=== PATIENT | female | born 1955 | race Caucasian/White ===

== ENCOUNTER 2022-05-12 19:50 | Inpatient (IN) | payer OTHER, SELFPAY ==
--- NOTE | 2022-05-12 | ECG_ITS ---
Test Reason : ABDOMINAL PAIN Blood Pressure : / mmHG Vent. Rate : 117 BPM Atrial Rate : 117 BPM P-R Int : 150 ms QRS Dur : 084 ms QT Int : 346 ms P-R-T Axes : 046 054 081 degrees QTc Int : 482 ms Sinus tachycardia Possible Left atrial enlargement Borderline ECG When compared with ECG of 07-APR-2019 12:59, T wave inversion now evident in Anterior leads Referred By: Generic ED Physician Electronically Signed By:Amilcar Mcneil
--- NOTE | ~2022-05-12 | CT_ITS ---
EXAMINATION: CT ABDOMEN AND PELVIS WITHOUT CONTRAST CLINICAL INFORMATION: Lower abdominal pain. COMPARISON: CT abdomen pelvis 12/27/2007 TECHNIQUE: Multidetector volumetric imaging was performed from the superior aspect of the liver through the pubic symphysis. Sagittal and coronal reformatted images were obtained on the technologist's workstation. This CT examination was performed using dose optimization techniques as appropriate, variously including the following: *Automated exposure control *Adjustment of mA and/or kV according to patient size (this includes techniques or standardized protocols for targeted exams where dose is matched to indication/reason for exam; i.e. extremities or head) *Use of iterative reconstruction technique DLP: 537 mGy-cm FINDINGS: LUNG BASES: Status post median sternotomy. LIVER, GALLBLADDER, AND BILIARY TREE: The liver is normal in size, shape, and attenuation. No focal hepatic lesion or biliary ductal dilatation is present. Small gallstone within the gallbladder neck. No edema around the gallbladder bile duct dilatation. PANCREAS: Edema around the pancreas consistent with a moderate pancreatitis. There is fluid along the anterior left pararenal fascia extending along left paracolic gutter. The edematous changes extending into the mid abdominal mesentery. No pancreatic duct dilatation. No evidence of pseudocyst. SPLEEN: Unremarkable. ADRENAL GLANDS: Unremarkable. KIDNEYS AND URETERS: The kidneys are normal in size, shape, and attenuation. No hydronephrosis, hydroureter, or calculi seen. No perinephric stranding. 5 cm cyst upper pole of the right kidney. No follow-up imaging is recommended for simple renal cyst. BLADDER: Unremarkable. GASTROINTESTINAL TRACT: There are a few scattered diverticula of the sigmoid colon. There is no diverticulitis. There is no bowel wall thickening /edema. There is no bowel obstruction. There is a moderate to large volume of stool in the colon. The appendix is normal . The small bowel loops are unremarkable. The stomach is normal. There is no hiatal hernia. ABDOMINAL WALL: Small fat-containing umbilical hernia. LYMPH NODES: Normal. VASCULAR: Atherosclerotic vascular calcifications throughout the abdomen and pelvis. There is no aneurysm. PELVIC VISCERA: Unremarkable. OSSEOUS STRUCTURES: There is marked multilevel degenerative spondylosis of the lower thoracic spine. CT/CT abdomen pelvis wo IV con IMPRESSION: 1. Moderate pancreatitis. 2. Cholelithiasis. Fleischner guidelines were followed.
--- NOTE | ~2022-05-12 | XR_ITS ---
EXAMINATION: XR CHEST CLINICAL INFORMATION: Sepsis COMPARISON: 04/07/2019 TECHNIQUE: Frontal view of the chest was obtained. FINDINGS: The heart and pulmonary vessels appear normal. Again noted are changes of median sternotomy and CABG. There is new patchy consolidation in the left lower lobe/retrocardiac region with some mild obscuration of the hemidiaphragm. The right lung is clear. No pleural effusions. XR/XR chest 1V IMPRESSION: New left lower lobe pneumonia.
--- NOTE | ~2022-05-12 | MR_ITS ---
EXAMINATION: MRI ABDOMEN WITHOUT CONTRAST (MRCP) CLINICAL INFORMATION: Pancreatitis COMPARISON: Ultrasound 05/12/2022. CT abdomen pelvis 05/12/2022 TECHNIQUE: Multiplanar MR images through the abdomen were obtained on a 1.5 Melissa MR system without IV contrast. Heavily T2-weighted MRCP sequences of the biliary tree were obtained in multiple planes. FINDINGS: LUNG BASES: Lung bases are clear. LIVER: The liver is normal in size and signal. No hepatic steatosis is seen. No focal cystic or solid mass is present. GALLBLADDER: There is a low signal structure in the neck of the gallbladder for example series 5 image 10/20 which could represent a tiny gallstone is seen on other imaging. No gallbladder wall thickening or pericholecystic fluid however. BILIARY TREE: No intrahepatic biliary ductal dilation. The common bile duct is normal in caliber, 0.6 cm in diameter. No intraluminal filling defects seen. PANCREAS: There is a edema of the neck and body of the pancreas with ill-defined peripancreatic fluid and fat stranding. Lack of IV contrast precludes evaluation of necrosis. No discrete pancreatic mass seen. Fluid and fat stranding extends into the left anterior and posterior pararenal spaces. SPLEEN: Normal. Normal size. No focal lesion. ADRENAL GLANDS: Normal. No adrenal mass. KIDNEYS AND URETERS: 5.2 cm simple cyst of the upper pole of the right kidney for which no imaging follow-up is recommended. No hydronephrosis. LYMPHOVASCULAR STRUCTURES: Normal caliber aorta. IVC patent. No pathologically enlarged abdominal or retroperitoneal lymphadenopathy by size criteria OSSEOUS STRUCTURES: No acute or suspicious osseous abnormalities. Trace ascites seen adjacent the liver and along left paracolic gutter. The visualized bowel is nondilated. MR/MR MRCP IMPRESSION: There is edema of the mid pancreas as well as extensive peripancreatic and retroperitoneal fluid and fat stranding consistent with acute interstitial pancreatitis. Lack of IV contrast limits evaluation to assess for pancreatic necrosis. No biliary ductal dilatation. There are gallstones but no filling defects in the common bile duct to suggest choledocholithiasis.
--- NOTE | ~2022-05-12 | US_ITS ---
EXAMINATION: US ABDOMEN LIMITED CLINICAL INFORMATION: Gallstones. Pancreatitis. COMPARISON: CT from today TECHNIQUE: Real-time imaging of the right upper quadrant abdominal viscera. FINDINGS: PANCREAS: Not seen due to bowel gas. LIVER: Normal. The liver is normal in size. The liver contour is normal. Parenchymal echogenicity is normal. No focal hepatic lesion. There is no intrahepatic biliary duct dilatation seen. GALLBLADDER: A few stones are seen layering in the gallbladder lumen. The gallbladder is physiologically distended without evidence of sludge, polyps, wall thickening or pericholecystic fluid. COMMON BILE DUCT: Normal in caliber measuring 0.3 cm in diameter. RIGHT KIDNEY: Upper pole 4.6 cm simple cyst. No specific follow-up recommended. No hydronephrosis. No renal calculi or solid parenchymal lesions. The kidney measures 10.3 cm in maximum dimension. FREE FLUID: None. US/US abdomen limited IMPRESSION: Cholelithiasis. No inflammatory changes of the gallbladder. Pancreas not evaluated due to bowel gas.
--- NOTE | ~2022-05-12 | US_ITS ---
EXAMINATION: US VENOUS WITH DOPPLER UPPER EXTREMITY, LEFT CLINICAL INFORMATION: Swelling COMPARISON: None TECHNIQUE: Ultrasound of the upper extremity is performed using compression sonography and color and pulse Doppler flow with assessment of augmentation of flow. There is also imaging and Doppler assessment of the jugular and subclavian veins. Spectral analysis with color-flow imaging is performed. FINDINGS: Respiratory variation, normal compression, and augmented flow are noted throughout the upper extremity including the axillary, brachial, cubital, and radial and ulnar veins. There is normal flow in the internal jugular and subclavian veins. There is no visible deep or superficial thrombophlebitis. The cephalic vein is not visualized. If the patient's symptoms progress, a followup ultrasound in 5 -7 days might be of value to exclude proximal propagation from a nonvisualized distal arm vein. US/US venous duplex UE LT IMPRESSION: No DVT demonstrated in the left upper extremity.
[2022-05-12 19:59] VITALS: BP 174/88; BP 198/89; PULSE 117; PULSE 118; RESP 24; TEMP 36.4; O2SAT 100; O2SAT 99; BMI 33.3
--- NOTE | 2022-05-12 20:10 | ED_ITS ---
HPI - Abdominal Pain General Chief Complaint: Abdominal Pain Stated Complaint: Low abd pain per EMS Time Seen by Provider: 05/12/22 20:08 Source: patient Mode of arrival: ambulatory Limitations: no limitations History of Present Illness HPI narrative: Patient with history of carotid artery surgery with blood clots in right subclavian vein and r arm 2019 supposed to be on Eliquis not taking it for last 3 months comes here for acute abdominal pain started at 03:00 last night associated with nausea and vomiting pain radiating in the left lower quadrant to the right side and the back patient has similar pain 1 week ago and 2 months ago but did go to any hospital resolved off its own. Had normal bowel movement today no fever no chills no abdominal distention Related Data Allergies Allergy/AdvReac Type Severity Reaction Status Date / Time Iodinated Contrast Media Allergy Unknown UNKNOWN Verified 05/12/22 20:38 [CONTRAST, IV] Review of Systems Review of Systems Yes all other systems are reviewed and are negative PMFSH Past Medical History Medical History Diabetes Hyperlipidemia Hypertension Surgical History S/P triple vessel bypass (~2001) Social History Social History Alcohol intake: never Smoked in Last 30 Days: No Use of substances other than those prescribed or required for medical reasons: No Advance Directives: No Advance Directives Information Provided: Yes Physical Exam ED Vital Signs: Vital Signs - 24 hr 05/12/22 19:59 05/12/22 23:49 Temperature 97.6 F 97.8 F Pulse Rate 117 H 118 H Respiratory Rate 24 H 20 Blood Pressure 198/89 H 195/88 H Pulse Oximetry 100 100 Oxygen Delivery Method Room Air Room Air BMI result Body Mass Index 33.3 Appearance: Alert. Oriented X3. Moderate distress Eyes: PERRLA, No Nystagmus ENT: Pharynx normal. Oral Mucosa moist Neck: Normal inspection. Neck supple. CVS: Normal heart rate and rhythm. Pulses normal. Respiratory: No respiratory distress. Equal air entry bilateral, no wheezing/rales/rhonchi Abdomen: Soft , diffuse tenderness mid abdomen and left lower quadrant guarding ++Bowel sounds sluggish, no mass palpable, no CVA tenderness Skin: Skin warm and dry. Normal skin color. Normal skin turgor. Extremities: No lower extremity edema. No calf tenderness Neuro: Oriented X 3. No motor deficit. Medical Decision Making Medical Decision Making [facility] Narrative: 2329: Patient has acute pancreatitis with gallstone likely the etiology with leukocytosis tachycardia lactic acidosis meeting the criteria for sepsis. Patient received IV fluids 30 cc/kilogram and IV antibiotics focused exam for sepsis was done at 2329 Patient's chest x-ray showed possible left retrocardiac infiltrate but CT scan of the abdomen did not show any infiltrate patient denies any cough no respiratory complaints. Patient received IV Zosyn and IV fluids admit to hospitalist service case discussed with Dr. Tidwell [facility] will follow the patient ultrasound negative for cholecystitis shows cholelithiasis only Differential Diagnosis Differential Diagnoses: The differential diagnosis associated with the presentation includes Cholecystitis/diverticulitis/bowel perforation/pancreatitis/gallstones/kidney stone/appendicitis Consult Healthcare Provider Management of the patient was discussed with: Hospitalist Lab Data [facility] Lab Attestation statement: I reviewed the patient's lab results. 05/12/22 20:21 05/12/22 21:07 Labs: Lab Results 05/12/22 05/12/22 05/12/22 Range/Units 20:21 20:21 20:24 WBC 20.0 H (4.8-10.8) X10*3/uL RBC 6.00 H (4.20-5.50) X10*6/uL Hgb 13.0 (12.0-16.0) g/dl Hct 42.5 (37.0-47.0) % MCV 70.8 L (80.0-98.0) fL MCH 21.7 L (27.0-33.0) pg MCHC 30.6 L (31.0-35.0) g/dl RDW 20.5 H (11.0-16.0) % Plt Count 365 (160-400) X10*3/uL MPV 10.8 (9.4-12.3) fL Immature Gran % (Auto) 0.6 H (0.0-0.4) % Neut % (Auto) 91.3 H (45-73) % Lymph % (Auto) 3.4 L (20-40) % [place] % (Auto) 4.3 (2-11) % Eos % (Auto) 0.0 (0-4) % Baso % (Auto) 0.4 (0-2) % Lymph # (Auto) 0.7 L (1.2-4.9) X10*3/uL [place] # (Auto) 0.9 (0.1-1.2) X10*3/uL Eos # (Auto) 0.0 (0.0-0.4) X10*3/uL Baso # (Auto) 0.1 (0.0-0.2) X10*3/uL Abs Immat Gran (auto) 0.11 H (0.00-0.03) X10*3/uL Absolute Neuts (auto) 18.3 H (2.0-8.3) x10*3/uL Absolute Nucleated RBC 0.000 (0.0-0.012) X10*3/uL Nucleated RBC % (auto) 0.0 (0.0-0.2) /100WBC PT 10.8 (10.0-13.1) SEC INR 0.9 (0.9-1.1) Sodium (135-145) mmol/L Potassium (3.3-5.1) mmol/L Chloride (96-108) mmol/L Carbon Dioxide (22-29) mmol/L Anion Gap (12-20) BUN (9-16) mg/dL Creatinine (0.5-1.4) mg/dL Estim Creat Clear Calc Estimated GFR Random Glucose (60-115) mg/dL Lactic Acid (0.5-2.0) mmol/L Lactic Acid F/U @ 2Hr (0.5-2.0) mmol/L Calcium (8.4-10.2) mg/dL Total Bilirubin (0.0-1.0) mg/dL AST (5-31) U/L ALT (0-31) U/L Alkaline Phosphatase (39-117) U/L Troponin I High Sens < 3.5 (<3.5-17.0) ng/L Total Protein (6.5-8.0) g/dL Albumin (3.5-5.0) g/dL Triglycerides mg/dL Cholesterol mg/dL LDL Cholesterol, Calc mg/dl HDL Cholesterol mg/dL Lipase (8-78) U/L COVID-19 (ADAIR) (Negative) COVID-19 Clin Com 05/12/22 05/12/22 05/12/22 Range/Units 20:25 21:07 22:47 WBC (4.8-10.8) X10*3/uL RBC (4.20-5.50) X10*6/uL Hgb (12.0-16.0) g/dl Hct (37.0-47.0) % MCV (80.0-98.0) fL MCH (27.0-33.0) pg MCHC (31.0-35.0) g/dl RDW (11.0-16.0) % Plt Count (160-400) X10*3/uL MPV (9.4-12.3) fL Immature Gran % (Auto) (0.0-0.4) % Neut % (Auto) (45-73) % Lymph % (Auto) (20-40) % [place] % (Auto) (2-11) % Eos % (Auto) (0-4) % Baso % (Auto) (0-2) % Lymph # (Auto) (1.2-4.9) X10*3/uL [place] # (Auto) (0.1-1.2) X10*3/uL Eos # (Auto) (0.0-0.4) X10*3/uL Baso # (Auto) (0.0-0.2) X10*3/uL Abs Immat Gran (auto) (0.00-0.03) X10*3/uL Absolute Neuts (auto) (2.0-8.3) x10*3/uL Absolute Nucleated RBC (0.0-0.012) X10*3/uL Nucleated RBC % (auto) (0.0-0.2) /100WBC PT (10.0-13.1) SEC INR (0.9-1.1) Sodium 141 (135-145) mmol/L Potassium 4.3 (3.3-5.1) mmol/L Chloride 105 (96-108) mmol/L Carbon Dioxide 17 L (22-29) mmol/L Anion Gap 23 H (12-20) BUN 33 H (9-16) mg/dL Creatinine 0.92 (0.5-1.4) mg/dL Estim Creat Clear Calc 48.5 Estimated GFR > 60 Random Glucose 251 H (60-115) mg/dL Lactic Acid 7.2 H* (0.5-2.0) mmol/L Lactic Acid F/U @ 2Hr 2.6 H* (0.5-2.0) mmol/L Calcium 9.3 (8.4-10.2) mg/dL Total Bilirubin 0.7 (0.0-1.0) mg/dL AST 117 H (5-31) U/L ALT 104 H (0-31) U/L Alkaline Phosphatase 251 H (39-117) U/L Troponin I High Sens (<3.5-17.0) ng/L Total Protein 6.1 L (6.5-8.0) g/dL Albumin 3.7 (3.5-5.0) g/dL Triglycerides 74 mg/dL Cholesterol 160 mg/dL LDL Cholesterol, Calc 95 mg/dl HDL Cholesterol 51 mg/dL Lipase > 3000 H (8-78) U/L COVID-19 (ADAIR) (Negative) COVID-19 Clin Com 05/12/22 Range/Units 23:45 WBC (4.8-10.8) X10*3/uL RBC (4.20-5.50) X10*6/uL Hgb (12.0-16.0) g/dl Hct (37.0-47.0) % MCV (80.0-98.0) fL MCH (27.0-33.0) pg MCHC (31.0-35.0) g/dl RDW (11.0-16.0) % Plt Count (160-400) X10*3/uL MPV (9.4-12.3) fL Immature Gran % (Auto) (0.0-0.4) % Neut % (Auto) (45-73) % Lymph % (Auto) (20-40) % [place] % (Auto) (2-11) % Eos % (Auto) (0-4) % Baso % (Auto) (0-2) % Lymph # (Auto) (1.2-4.9) X10*3/uL [place] # (Auto) (0.1-1.2) X10*3/uL Eos # (Auto) (0.0-0.4) X10*3/uL Baso # (Auto) (0.0-0.2) X10*3/uL Abs Immat Gran (auto) (0.00-0.03) X10*3/uL Absolute Neuts (auto) (2.0-8.3) x10*3/uL Absolute Nucleated RBC (0.0-0.012) X10*3/uL Nucleated RBC % (auto) (0.0-0.2) /100WBC PT (10.0-13.1) SEC INR (0.9-1.1) Sodium (135-145) mmol/L Potassium (3.3-5.1) mmol/L Chloride (96-108) mmol/L Carbon Dioxide (22-29) mmol/L Anion Gap (12-20) BUN (9-16) mg/dL Creatinine (0.5-1.4) mg/dL Estim Creat Clear Calc Estimated GFR Random Glucose (60-115) mg/dL Lactic Acid (0.5-2.0) mmol/L Lactic Acid F/U @ 2Hr (0.5-2.0) mmol/L Calcium (8.4-10.2) mg/dL Total Bilirubin (0.0-1.0) mg/dL AST (5-31) U/L ALT (0-31) U/L Alkaline Phosphatase (39-117) U/L Troponin I High Sens (<3.5-17.0) ng/L Total Protein (6.5-8.0) g/dL Albumin (3.5-5.0) g/dL Triglycerides mg/dL Cholesterol mg/dL LDL Cholesterol, Calc mg/dl HDL Cholesterol mg/dL Lipase (8-78) U/L COVID-19 (ADAIR) Negative (Negative) COVID-19 Clin Com See Note Medications Administered Generic Name Dose Route Start Last Admin Trade Name Freq PRN Reason Stop Dose Admin Enoxaparin Sodium 40 mg 05/13/22 00:30 05/13/22 00:27 Enoxaparin Sodium 40 Mg/0.4 Ml Syringe SUBCUT 40 mg BEDTIME MAXIM Administration Lactated Ringer's 1,000 mls @ 250 mls/hr 05/12/22 23:45 05/13/22 00:33 Lr IVCONT 250 mls/hr .Q4H MAXIM Administration Metronidazole 500 mg in 100 mls @ 100 mls/hr 05/13/22 00:30 05/13/22 00:33 Flagyl IV 100 mls/hr Q8H MAXIM Administration Discontinued Medications Generic Name Dose Route Start Last Admin Trade Name Celia PRN Reason Stop Dose Admin Famotidine 20 mg 05/12/22 23:13 05/12/22 23:33 Famotidine/Pf 20 Mg/2 Ml Vial IVPUSH 05/12/22 23:14 20 mg ONCE ONE Administration Hydralazine HCl 5 mg 05/13/22 00:05 05/13/22 00:27 Hydralazine Hcl 20 Mg/Ml Vial IVPUSH 05/13/22 00:06 5 mg ONCE ONE Administration Protocol Sodium Chloride 1,000 mls @ 999 mls/hr 05/12/22 20:10 05/12/22 20:28 Ns IV 05/12/22 21:10 999 mls/hr .Q1H1M ONE Administration Sodium Chloride 1,000 mls @ 999 mls/hr 05/12/22 21:03 05/12/22 21:59 Ns IV 05/12/22 22:03 999 mls/hr .Q1H1M ONE Administration Piperacillin Sod/Tazobactam 50 mls @ 100 mls/hr 05/12/22 21:03 05/12/22 21:59 Sod 3.375 gm/ Sodium Chloride IV 05/12/22 21:32 Infused ONCE ONE Infusion Sodium Chloride 1,000 mls @ 999 mls/hr 05/12/22 23:05 05/12/22 23:33 Ns IV 05/13/22 00:05 999 mls/hr .Q1H1M ONE Administration Morphine Sulfate 4 mg 05/12/22 20:19 05/12/22 20:28 Morphine Sulfate 4 Mg/Ml Cartridge IVPUSH 05/12/22 20:20 4 mg ONCE ONE Administration Protocol Morphine Sulfate 4 mg 05/12/22 23:04 05/12/22 23:33 Morphine Sulfate 4 Mg/Ml Cartridge IVPUSH 05/12/22 23:05 4 mg ONCE ONE Administration Protocol Ondansetron HCl 4 mg 05/12/22 20:19 05/12/22 20:28 Ondansetron Hcl 4 Mg/2 Ml Vial IVPUSH 05/12/22 20:20 4 mg ONCE ONE Administration Discharge Plan Discharge Clinical Impression: Acute gallstone pancreatitis, Sepsis, Acidosis, lactic Patient Disposition: Admitted As Inpatient
[2022-05-12 20:24] LABS: MANUAL DIFF FLAG NO
[2022-05-12 20:28] LABS: Basophils Absolute Auto 0.1 X10*3/uL (0.0-0.2); Basophils Percent Auto 0.4 % (0-2); Hematocrit 42.5 % (37.0-47.0); Imm Gran Abs Auto 0.11 X10*3/uL (0.00-0.03); Imm Gran Pct Auto 0.6 % (0.0-0.4); Lymphocytes Absolute Auto 0.7 X10*3/uL (1.2-4.9); Lymphocytes Percent Auto 3.4 % (20-40); Mean Corpuscular HGB Conc 30.6 g/dl (31.0-35.0); Mean Corpuscular Hemoglobin 21.7 pg (27.0-33.0); Mean Corpuscular Volume 70.8 fL (80.0-98.0); Mean Platelet Volume 10.8 fL (9.4-12.3); Monocytes Absolute Auto 0.9 X10*3/uL (0.1-1.2); Monocytes Percent Auto 4.3 % (2-11); Neutrophils Absolute Auto 18.3 x10*3/uL (2.0-8.3); Neutrophils Percent Auto 91.3 % (45-73); Platelet Count 365 X10*3/uL (160-400); Red Cell Distribution Width 20.5 % (11.0-16.0); SCAN SMEAR FLAG 1
[2022-05-12] MEDS: ondansetron HCL 4 MG/2 ML VIAL IVPUSH (20:28)
[2022-05-12] MEDS: 0.9 % Sodium Chloride 1,000 ML 999 ML IV ×3 (20:28→23:33)
[2022-05-12] MEDS: Morphine Sulfate 4 MG/ML CARTRIDGE IVPUSH ×2 (20:28→23:33)
--- NOTE | 2022-05-12 20:35 | PC.NURSE ---
pt arrived to ed a&ox3, sinus tach on monitor, hypertensive, other vss, reporting 10/10 abd pain radiating to left flank. labs drawn, EKG obtained, 22G IV placed left hand, medicated per provider order. pending CT.
[2022-05-12 20:39] LABS: INTERNATIONAL NORM RATIO 0.9 (0.9-1.1); Prothrombin Time 10.8 SEC (10.0-13.1)
[2022-05-12 20:46] LABS: Troponin-I High Sensitivity < 3.5 ng/L (<3.5-17.0)
[2022-05-12 21:04] LABS: Lactic Acid 7.2 mmol/L (0.5-2.0)
[2022-05-12] MEDS: Piperacillin Sodium/Tazobactam 3.375 GM in 0.9 % Sodium Chloride 50 ML IV (21:18)
[2022-05-12 21:34] LABS: Alanine Aminotransferase 104 U/L (0-31); Albumin Level 3.7 g/dL (3.5-5.0); Alkaline Phosphatase 251 U/L (39-117); Anion Gap 23 (12-20); Aspartate Amino Transferase 117 U/L (5-31); Bilirubin Total 0.7 mg/dL (0.0-1.0); Blood Urea Nitrogen 33 mg/dL (9-16); Calcium 9.3 mg/dL (8.4-10.2); Carbon Dioxide 17 mmol/L (22-29); Chloride 105 mmol/L (96-108); Creatinine Clr Calc Pharmacy 48.5; Estimated Glomerular Filt Rate > 60; Glucose Random 251 mg/dL (60-115); Potassium 4.3 mmol/L (3.3-5.1); Sodium 141 mmol/L (135-145); Total Protein 6.1 g/dL (6.5-8.0)
[2022-05-12 21:50] LABS: Lipase > 3000 U/L (8-78)
[2022-05-12 22:30] LABS: Reflex Lactate? Lactic Acid Added
[2022-05-12 23:12] LABS: ~Lactic Acid-LAB USE ONLY 2.6 mmol/L (0.5-2.0)
[2022-05-12 23:26] LABS: Cholesterol 160 mg/dL; HDL Cholesterol 51 mg/dL; LDL Cholesterol Calculated 95 mg/dl; Triglycerides 74 mg/dL
[2022-05-12] MEDS: Famotidine/PF 20 MG/2 ML VIAL IVPUSH (23:33)
[2022-05-12 23:49] VITALS: BP 195/88; PULSE 118; RESP 20; TEMP 36.6; O2SAT 100
[2022-05-13] VITALS (8 sets, daily range): BP systolic 137–195; BP diastolic 68–88; PULSE 98–131; RESP 15–28; TEMP 36.2–37.2; O2SAT 94–99; BMI 33.3
[2022-05-13 00:04] LABS: COVID-19 Test Negative (Negative); IDNOW Serial# 6674DD1D
--- NOTE | 2022-05-13 00:05 | P.HPHOSP_ITS ---
History of Present Illness Date of Service: 05/13/22 Chief Complaint: abdominal pain 66-year-old female with past medical history of CAD status post CABG, diabetes, HLD, HTN presents to the hospital with complaints of severe abdominal pain. Patient reports the abdominal pain to be across the abdomen, radiating to the back, the patient woke up at 03:00 with this pain, patient reports the pain is 10/10/severe, constant, associated with nausea vomiting, decreased oral intake due to the nausea, reports no diarrhea constipation, reports similar episodes last month that resolved spontaneously within minutes. Denies any fever or chills, no chest pain, no shortness of breath, no cough, no urinary symptoms and no lower extremity edema. No numbness tingling or weakness. On arrival to the ED patient hemodynamically stable with a heart rate of 117, blood pressure 188/89, respiratory rate of 24 Labs are significant for WBC count of 22, BUN of 33, lactic acid initially of 7.2 that decrease 2.1, AST of 117, ALT of 104, alk-phos of 251, troponin negative, lipase of more than [address] shows moderate pancreatitis, cholelithiasis, patient underwent abdominal ultrasound that also showed cholelithiasis with no inflammatory change of the gallbladder, case was discussed with GI, patient will undergo MRCP in a.m.. Review of Systems Review of Systems: Yes all other systems are reviewed and are negative [facility] Medical History Diabetes Hyperlipidemia Hypertension Surgical History S/P triple vessel bypass (~2001) Social History Alcohol intake: never Smoked in Last 30 Days: No Use of substances other than those prescribed or required for medical reasons: No Advance Directives: No Advance Directives Information Provided: Yes Meds Allergies Allergy/AdvReac Type Severity Reaction Status Date / Time Iodinated Contrast Media Allergy Unknown UNKNOWN Verified 05/12/22 20:38 [CONTRAST, IV] Home Medications Medication Instructions Recorded Confirmed Last Taken Type aspirin 81 mg chewable tablet 1 tab DAILY 05/13/22 05/13/22 Unknown History atorvastatin 80 mg tablet 1 tab PO BEDTIME 05/13/22 05/13/22 Unknown History calcipotriene 0.005 % topical cream appl topical 05/13/22 Unknown History dulaglutide 3 mg/0.5 mL 3 mg subcut QWEEK 05/13/22 05/13/22 Unknown History subcutaneous pen injector (Trulicity) empagliflozin 25 mg tablet 1 tab PO QAM 05/13/22 05/13/22 Unknown History (Jardiance) enalapril maleate 10 mg tablet 1 tab PO DAILY 05/13/22 05/13/22 Unknown History hydroxyzine HCl 10 mg tablet 1 tab PO BEDTIME 05/13/22 05/13/22 Unknown History insulin lispro 100 unit/mL subcut 05/13/22 Unknown History subcutaneous pen (Humalog KwikPen (U-100) Insulin) metoprolol tartrate 50 mg tablet 1 tab PO BID 05/13/22 05/13/22 Unknown History omeprazole 20 mg capsule,delayed 1 cap PO DAILY 05/13/22 05/13/22 Unknown History release Physical Exam Vital Signs and Narrative: Vital Signs: Last Vital Signs Temp 97.8 F 05/12/22 23:49 Pulse 118 H 05/12/22 23:49 Resp 20 05/12/22 23:49 BP 195/88 H 05/12/22 23:49 Pulse Ox 100 05/12/22 23:49 O2 Del Method 05/12/22 23:49 BMI result Body Mass Index 33.3 Const: General: cooperative and no acute distress Orientation/consciousness: patient oriented x3 Eyes: General: appearance normal, both eyes and all related structures Resp: Effort & Inspection: able to speak in complete sentences Auscultation: clear to auscultation bilaterally Cardio: Rate: regular rate Rhythm: regular rhythm GI: Other: Severe abdominal tenderness in the epigastric region, rebound Skin: Other: diaphoretic General skin exam: no rashes or lesions noted Neuro: General: patient oriented x3 Cognition (Neuro): normal cognition Extrem: General: Yes normal to inspection and Yes no pedal edema Results Labs 05/12/22 20:21 05/12/22 21:07 Labs: Laboratory Results - last 24 hr 05/12/22 05/12/22 05/12/22 20:21 20:21 20:24 MCV 70.8 L MCH 21.7 L MCHC 30.6 L RDW 20.5 H Plt Count 365 MPV 10.8 Immature Gran % (Auto) 0.6 H Neut % (Auto) 91.3 H Lymph % (Auto) 3.4 L [place] % (Auto) 4.3 Eos % (Auto) 0.0 Baso % (Auto) 0.4 Lymph # (Auto) 0.7 L [place] # (Auto) 0.9 Eos # (Auto) 0.0 Baso # (Auto) 0.1 Abs Immat Gran (auto) 0.11 H Absolute Neuts (auto) 18.3 H Absolute Nucleated RBC 0.000 Nucleated RBC % (auto) 0.0 PT 10.8 INR 0.9 Anion Gap Estim Creat Clear Calc Estimated GFR Random Glucose Lactic Acid Lactic Acid F/U @ 2Hr Calcium Total Bilirubin AST ALT Alkaline Phosphatase Troponin I High Sens < 3.5 Total Protein Albumin Triglycerides Cholesterol LDL Cholesterol, Calc HDL Cholesterol Lipase COVID-19 (ADAIR) COVID-Carrier IQ 05/12/22 05/12/22 05/12/22 20:25 21:07 22:47 MCV MCH MCHC RDW Plt Count MPV Immature Gran % (Auto) Neut % (Auto) Lymph % (Auto) [place] % (Auto) Eos % (Auto) Baso % (Auto) Lymph # (Auto) [place] # (Auto) Eos # (Auto) Baso # (Auto) Abs Immat Gran (auto) Absolute Neuts (auto) Absolute Nucleated RBC Nucleated RBC % (auto) PT INR Anion Gap 23 H Estim Creat Clear Calc 48.5 Estimated GFR > 60 Random Glucose 251 H Lactic Acid 7.2 H* Lactic Acid F/U @ 2Hr 2.6 H* Calcium 9.3 Total Bilirubin 0.7 AST 117 H ALT 104 H Alkaline Phosphatase 251 H Troponin I High Sens Total Protein 6.1 L Albumin 3.7 Triglycerides 74 Cholesterol 160 LDL Cholesterol, Calc 95 HDL Cholesterol 51 Lipase > 3000 H COVID-19 (ADAIR) COVID-Carrier IQ 05/12/22 23:45 MCV MCH MCHC RDW Plt Count MPV Immature Gran % (Auto) Neut % (Auto) Lymph % (Auto) [place] % (Auto) Eos % (Auto) Baso % (Auto) Lymph # (Auto) [place] # (Auto) Eos # (Auto) Baso # (Auto) Abs Immat Gran (auto) Absolute Neuts (auto) Absolute Nucleated RBC Nucleated RBC % (auto) PT INR Anion Gap Estim Creat Clear Calc Estimated GFR Random Glucose Lactic Acid Lactic Acid F/U @ 2Hr Calcium Total Bilirubin AST ALT Alkaline Phosphatase Troponin I High Sens Total Protein Albumin Triglycerides Cholesterol LDL Cholesterol, Calc HDL Cholesterol Lipase COVID-19 (ADAIR) Negative COVID-19 Clin Com See Note Imaging Radiologist's Impressions: Impressions Abdomen/Pelvis CT 05/12/22 21:00 IMPRESSION: 1. Moderate pancreatitis. 2. Cholelithiasis. Fleischner guidelines were followed. Chest X-Ray 05/12/22 23:15 IMPRESSION: New left lower lobe pneumonia. Abdomen Ultrasound 05/12/22 23:34 IMPRESSION: Cholelithiasis. No inflammatory changes of the gallbladder. Pancreas not evaluated due to bowel gas. Assessment and Plan (1) Acute gallstone pancreatitis: Status: Acute (2) Sepsis: Status: Acute (3) Acidosis, lactic: Status: Acute Plan 66-year-old female with past medical history of diabetes presents to the hospital with complaints of abdominal pain found to have acute pancreatitis # acute pancreatitis - likely gallstone pancreatitis vs 2/2 medication induced in the setting of trulicity - has elevated LFTs, ultrasound of the abdomen shows gallstones with no acute cholecystitis - evidence of sepsis, will treat with IV antibiotics, make NPO, aggressive IV hydration - MRCP in a.m. - GI consulted - general surgery consulted # sepsis - possibly secondary to acute pancreatitis versus acute cholecystitis less likely - has tachycardia, leukocytosis, lactic acidosis - received IV fluids - improved her symptoms - IV antibiotics - follow cultures # lactic acidosis - likely secondary to acute pancreatitis - improved after IV fluids - continue IVF # diabetes - low-dose sinus scale insulin - hold po meds - consider discontinuing Trulicity on discharge given acute pancreatitis - diabetic diet once she is able to eat # hypertension - elevated - asymptomatic - unable to take p.o. - hydralazine p.r.n. DVT prophylaxis: Lovenox Time Spent With Patient Time: Total time managing care of this patient today ____ minutes. Quality Stroke Does the patient have a stroke diagnosis?: No VTE Prior VTE?: No VTE Risk Level:: Medical - moderate - high VTE Device Contraindication: Treatment Not Indicated VTE Drug Contraindication: N/A - Med Ordered
[2022-05-13] MEDS: hydrALAZINE HCl 20 MG/ML VIAL 5 MG IVPUSH (00:27)
[2022-05-13] MEDS: Enoxaparin Sodium 40 MG/0.4 ML SYRINGE SUBCUT ×2 (00:27→23:35)
[2022-05-13] MEDS: Lactated Ringers 1,000 ML 250 ML IVCONT ×5 (00:33→15:43)
[2022-05-13] MEDS: metroNIDAZOLE/NS 500 MG/100 ML PIGGYBACK 100 MG IV ×3 (00:33→17:04)
[2022-05-13 00:52] LABS: Reflex Lactate? 2 Y
[2022-05-13] MEDS: HYDROmorphone HCl 0.5 MG/0.5 ML SYRINGE IVPUSH ×2 (01:52→07:53)
[2022-05-13] MEDS: ondansetron HCL 4 MG/2 ML VIAL IVPUSH (01:52)
--- NOTE | 2022-05-13 02:00 | PC.NURSE ---
Pt. sleeping in bed. Pt. awakes to report pain at 10. Pt. also reporting nauseau. Pt. medicated with zofran and dilaudid per JUL. LR IVF running at 250mL/hour. Flagyl running at 100mL/hr. Pt. BP has dropped since adminstration of hydralazine. Pt. remains in sinus tachycardia at 116bpm.
[2022-05-13 02:09] LABS: ~Lactic Acid-LAB USE ONLY 2.1 mmol/L (0.5-2.0)
--- NOTE | 2022-05-13 02:10 | PC.NURSE ---
lab called with a critical lab value for pt. Lactic acid 2.1 notified.
--- NOTE | 2022-05-13 03:44 | MHC.EDTECH ---
pt is resting comfortable
[2022-05-13] MEDS: Piperacillin Sodium/Tazobactam 3.375 GM in 0.9 % Sodium Chloride 50 ML IV ×4 (04:05→23:37)
[2022-05-13] MEDS: Morphine Sulfate 4 MG/ML CARTRIDGE IVPUSH ×3 (04:09→23:52)
--- NOTE | 2022-05-13 04:20 | PC.NURSE ---
Pt. reports pain at 10/11. Pt. medicated with prn morphine per JUL. IVF LR running at 250mL/hr. Zosyn hung per JUL.
--- NOTE | 2022-05-13 06:04 | PC.NURSE ---
IVF LR finished infusing, hung new bag per MAR.
--- NOTE | 2022-05-13 07:08 | PM.CNGS ---
History of Present Illness Consult details Consult date: 05/13/22 Reason for consult: abdominal pain Narrative: The patient is a 66-year-old woman with a history of obesity, type 2 diabetes, coronary artery disease, status post CABG who presented with abdominal pain, lactic acidosis and is diagnosed with gallstone pancreatitis. She was admitted by the hospitalist service with GI consultation and I was asked to see the patient regarding timing of cholecystectomy. The patient reports 2 previous episodes of similar but not as severe abdominal pain, last in March and again in April. This current episode started about 03:00 Thursday morning, waking her from sleep and progressed. She reports she has had vomiting all day yesterday and is feeling slightly better with pain meds and antiemetics but as I interview her, she is reaching for the emesis bag and dry heaving. She denies any difficulty breathing, shortness of breath or paresthesias. She notes a very strong family history of type 2 diabetes with complications affecting her affected siblings and parent. The patient denies any periumbilical pain and does not recall whether not she has previously been told that she has a hernia. Her abdominal pain is mostly in the epigastrium and upper abdomen/lower chest at this time. Review of Systems Review of Systems: Yes all other systems are reviewed and are negative Constitutional: Constitutional: Reports as per [facility] Past Medical History Medical History Diabetes Hyperlipidemia Hypertension Surgical History Surgical History S/P triple vessel bypass (~2001) Social History Social History Alcohol intake: never Smoked in Last 30 Days: No Use of substances other than those prescribed or required for medical reasons: No Advance Directives: No Advance Directives Information Provided: Yes Meds Allergies Allergy/AdvReac Type Severity Reaction Status Date / Time Iodinated Contrast Media Allergy Unknown UNKNOWN Verified 05/12/22 20:38 [CONTRAST, IV] Active Medications: Current Medications Acetaminophen (Acetaminophen Supp 650 Mg Supp.Rect) 650 mg OH Q6H PRN PRN Reason: Pain, Mild (Pain Scale 1-3) Aspirin (Aspirin 81 Mg Tab.Chew) 81 mg PO DAILY MAXIM Atorvastatin Calcium (Atorvastatin Calcium 80 Mg Tablet) 80 mg PO BEDTIME MAXIM Dextrose (Dextrose 50 % 25 Gm/50 Ml Syringe) 25 gm IVPUSH Q15M PRN; Protocol PRN Reason: per Hypoglycemia Standing Ord. Enalapril Maleate (Enalapril Maleate 10 Mg Tablet) 10 mg PO DAILY [facility]; Protocol Enoxaparin Sodium (Enoxaparin Sodium 40 Mg/0.4 Ml Syringe) 40 mg SUBCUT BEDTIME [facility] Last Admin: 05/13/22 00:27 Dose: 40 mg Glucose (Glucose Gel 15 Gm Gel..Gram.) 15 gm PO Q15M PRN; Protocol PRN Reason: per Hypoglycemia Standing Ord. Hydromorphone HCl (Hydromorphone Hcl 0.5 Mg/0.5 Ml Syringe) 0.5 mg IVPUSH Q4H PRN; Protocol PRN Reason: Pain, Severe (Pain Scale 7-10) Last Admin: 05/13/22 01:52 Dose: 0.5 mg Hydroxyzine HCl (Hydroxyzine Hcl 10 Mg Tablet) 10 mg PO BEDTIME [facility] Lactated Ringer's (Lr) 1,000 mls @ 250 mls/hr IVCONT .Q4H [facility] Last Admin: 05/13/22 06:01 Dose: 250 mls/hr Piperacillin Sod/Tazobactam (Sod 3.375 gm/ Sodium Chloride) 50 mls @ 100 mls/hr IV Q6H [facility] Last Infusion: 05/13/22 06:03 Dose: Infused Metronidazole (Flagyl) 500 mg in 100 mls @ 100 mls/hr IV Q8H [facility] Last Infusion: 05/13/22 04:24 Dose: Infused Insulin Human Lispro (Insulin Lispro 100 Unit/Ml 3 Ml Vial) 0 unit SUBCUT QIDACHS [facility]; Protocol Metoprolol Tartrate (Metoprolol Tartrate 50 Mg Tablet) 50 mg PO BID [facility]; Protocol Morphine Sulfate (Morphine Sulfate 4 Mg/Ml Cartridge) 4 mg IVPUSH Q4H PRN; Protocol PRN Reason: Pain, Moderate (Pain Scale 4-6 Last Admin: 05/13/22 04:09 Dose: 4 mg Omeprazole (Omeprazole 20 Mg Capsule.Dr) 20 mg PO DAILY@0630 [facility] Ondansetron HCl (Ondansetron Hcl 4 Mg/2 Ml Vial) 4 mg IVPUSH Q8H PRN PRN Reason: Nausea and Vomiting Last Admin: 05/13/22 01:52 Dose: 4 mg Home Medications Medication Instructions Recorded Confirmed Last Taken Type aspirin 81 mg chewable tablet 1 tab DAILY 05/13/22 05/13/22 Unknown History atorvastatin 80 mg tablet 1 tab PO BEDTIME 05/13/22 05/13/22 Unknown History calcipotriene 0.005 % topical cream appl topical 05/13/22 Unknown History dulaglutide 3 mg/0.5 mL 3 mg subcut QWEEK 05/13/22 05/13/22 Unknown History subcutaneous pen injector (Trulicity) empagliflozin 25 mg tablet 1 tab PO QAM 05/13/22 05/13/22 Unknown History (Jardiance) enalapril maleate 10 mg tablet 1 tab PO DAILY 05/13/22 05/13/22 Unknown History hydroxyzine HCl 10 mg tablet 1 tab PO BEDTIME 05/13/22 05/13/22 Unknown History insulin degludec 100 unit/mL (3 20 unit subcut BEDTIME 05/13/22 05/13/22 Unknown History mL) subcutaneous pen (Tresiba FlexTouch U-100 insulin) insulin lispro 100 unit/mL See Rx Instructions .Route .COMPLEX 05/13/22 05/13/22 Unknown History subcutaneous pen (Humalog KwikPen (U-100) Insulin) metoprolol tartrate 50 mg tablet 1 tab PO BID 05/13/22 05/13/22 Unknown History omeprazole 20 mg capsule,delayed 1 cap PO DAILY 05/13/22 05/13/22 Unknown History release Physical Exam Vital Signs: Vital Signs: Last Vital Signs Temp 97.3 F 05/13/22 03:48 Pulse 121 H 05/13/22 06:09 Resp 28 H 05/13/22 06:09 BP 137/80 05/13/22 06:09 Pulse Ox 97 05/13/22 06:09 O2 Del Method 05/13/22 06:09 BMI result Body Mass Index 33.3 The patient is non-toxic & in good spirits NC/AT, PERRLA, EOMI Mood, affect & judgment all appear appropriate Sclera anicteric conjunctiva pink and moist Oropharynx is clear with no aphthous ulcers, Mallampati class 4, mucous membranes moist Neck is supple with no masses, adenopathy or bruits Heart is regular, normal S1-S2 no rubs or murmurs Lungs are clear and equal anteriorly with no audible wheezing, rubs or dullness to percussion Abdomen is obese with no demonstrable hernias secondary to her body habitus and no periumbilical pain on exam. Diffuse upper abdominal pain with no peritoneal sign is present and no HSM, rebound, rigidity, guarding, masses or bruits are present. Rectal exam is deferred Skin has good turgor and is free of rashes Extremities free of cyanosis clubbing edema Results Labs 05/12/22 20:21 05/12/22 21:07 Labs: Abnormal lab results 05/12/22 05/12/22 05/12/22 Range/Units 20:21 20:25 21:07 WBC 20.0 H (4.8-10.8) X10*3/uL RBC 6.00 H (4.20-5.50) X10*6/uL MCV 70.8 L (80.0-98.0) fL MCH 21.7 L (27.0-33.0) pg MCHC 30.6 L (31.0-35.0) g/dl RDW 20.5 H (11.0-16.0) % Immature Gran % (Auto) 0.6 H (0.0-0.4) % Neut % (Auto) 91.3 H (45-73) % Lymph % (Auto) 3.4 L (20-40) % Lymph # (Auto) 0.7 L (1.2-4.9) X10*3/uL Abs Immat Gran (auto) 0.11 H (0.00-0.03) X10*3/uL Absolute Neuts (auto) 18.3 H (2.0-8.3) x10*3/uL Carbon Dioxide 17 L (22-29) mmol/L Anion Gap 23 H (12-20) BUN 33 H (9-16) mg/dL Random Glucose 251 H (60-115) mg/dL Lactic Acid 7.2 H* (0.5-2.0) mmol/L Lactic Acid F/U @ 2Hr (0.5-2.0) mmol/L Lactic Acid F/U @ 4Hr (0.5-2.0) mmol/L AST 117 H (5-31) U/L ALT 104 H (0-31) U/L Alkaline Phosphatase 251 H (39-117) U/L Total Protein 6.1 L (6.5-8.0) g/dL Lipase > 3000 H (8-78) U/L 05/12/22 05/13/22 Range/Units 22:47 01:44 WBC (4.8-10.8) X10*3/uL RBC (4.20-5.50) X10*6/uL MCV (80.0-98.0) fL MCH (27.0-33.0) pg MCHC (31.0-35.0) g/dl RDW (11.0-16.0) % Immature Gran % (Auto) (0.0-0.4) % Neut % (Auto) (45-73) % Lymph % (Auto) (20-40) % Lymph # (Auto) (1.2-4.9) X10*3/uL Abs Immat Gran (auto) (0.00-0.03) X10*3/uL Absolute Neuts (auto) (2.0-8.3) x10*3/uL Carbon Dioxide (22-29) mmol/L Anion Gap (12-20) BUN (9-16) mg/dL Random Glucose (60-115) mg/dL Lactic Acid (0.5-2.0) mmol/L Lactic Acid F/U @ 2Hr 2.6 H* (0.5-2.0) mmol/L Lactic Acid F/U @ 4Hr 2.1 H* (0.5-2.0) mmol/L AST (5-31) U/L ALT (0-31) U/L Alkaline Phosphatase (39-117) U/L Total Protein (6.5-8.0) g/dL Lipase (8-78) U/L Short CBC 05/12/22 Range/Units 20:21 WBC 20.0 H (4.8-10.8) X10*3/uL Hgb 13.0 (12.0-16.0) g/dl Hct 42.5 (37.0-47.0) % Plt Count 365 (160-400) X10*3/uL BMP 05/12/22 21:07 Sodium 141 Potassium 4.3 Chloride 105 Carbon Dioxide 17 L BUN 33 H Creatinine 0.92 Calcium 9.3 Liver Function 05/12/22 Range/Units 21:07 Total Bilirubin 0.7 (0.0-1.0) mg/dL AST 117 H (5-31) U/L ALT 104 H (0-31) U/L Alkaline Phosphatase 251 H (39-117) U/L Albumin 3.7 (3.5-5.0) g/dL I have ordered a hemoglobin A1c and pre-albumin that are pending at the time of this note. Imaging Chest x-ray: report reviewed and image reviewed Abdomen CT scan report/results: report reviewed and image reviewed CT scan - pelvis: report reviewed and image reviewed Abdominal ultrasound report/results: report reviewed Additional studies: Chest x-ray shows concern for new left lower lobe pneumonia; CT demonstrates gallstones and pancreatitis; abdominal ultrasound shows a 3 mm common bile duct with no ehsan cholecystic fluid, gallbladder wall thickening and gallstones are present Assessment and Plan (1) Acute gallstone pancreatitis: Status: Acute (2) Sepsis: Status: Acute (3) Acidosis, lactic: Status: Acute (4) Umbilical hernia: Status: Acute (5) Morbid (severe) obesity due to excess calories: Status: Acute (6) Diabetes: Status: Acute (7) Hyperlipidemia: Status: Acute (8) S/P triple vessel bypass: Status: Acute Plan Agree with bowel rest, strict NPO while she is vomiting and antibiotics per primary service regarding left lower lobe pneumonia which may be aspiration versus pneumonitis. Trend labs and physical exam. Will need cholecystectomy when stable. Await GI input. Will follow. Please call with surgical questions Time Spent With Patient Time: Total time managing care of this patient today ____ minutes. Procedures Date of Service Date of Service: 05/13/22
--- NOTE | 2022-05-13 07:16 | PHA.MEDREC ---
Pharmacy Consult ? Medication Reconciliation Pharmacy has completed the medication reconciliation.
[2022-05-13 07:22] LABS: Alanine Aminotransferase 76 U/L (0-31); Albumin Level 3.2 g/dL (3.5-5.0); Alkaline Phosphatase 198 U/L (39-117); Anion Gap 21 (12-20); Aspartate Amino Transferase 88 U/L (5-31); Bilirubin Total 0.7 mg/dL (0.0-1.0); Blood Urea Nitrogen 31 mg/dL (9-16); Calcium 8.4 mg/dL (8.4-10.2); Carbon Dioxide 14 mmol/L (22-29); Chloride 113 mmol/L (96-108); Creatinine Clr Calc Pharmacy 53.7; Estimated Glomerular Filt Rate > 60; Glucose Random 215 mg/dL (60-115); Potassium 4.4 mmol/L (3.3-5.1); Sodium 144 mmol/L (135-145); Total Protein 5.4 g/dL (6.5-8.0)
[2022-05-13 07:37] LABS: Glucose, Whole Blood 204 mg/dL (60-115)
[2022-05-13 08:03] LABS: Estimated Average Glucose 194 mg/dL; Hemoglobin A1c % 8.4 %
--- NOTE | 2022-05-13 08:21 | PC.NURSE ---
Patient medicated with PRN dilaudid for increase in abdominal pain. Transport taking patient to MRI
--- NOTE | 2022-05-13 08:28 | PM.EVENT ---
Event Note Date of Service: 05/13/22 Event Note: GI-Consult received and chart reviewed-patient to be seen and full note to follow-D/W ER MD and hospitalist last evening. Imp: Seems c/w gallstone pancreatitis with passage of a CBD stone based on imaging studies and labs thus far. Rec: Agree with supportive care, F/U labs, IV fluids and antibiotics, surgical consult, and MRCP. I suspect the MRCP will be negative for a retained stone. Thanks Time Spent With Patient Time: Total time managing care of this patient today ____ minutes.
[2022-05-13 09:10] LABS: Basophils Absolute Auto 0.1 X10*3/uL (0.0-0.2); Basophils Percent Auto 0.3 % (0-2); Imm Gran Abs Auto 0.13 X10*3/uL (0.00-0.03); Imm Gran Pct Auto 0.7 % (0.0-0.4); Lymphocytes Absolute Auto 0.8 X10*3/uL (1.2-4.9); Lymphocytes Percent Auto 3.8 % (20-40); MANUAL DIFF FLAG SCAN; Mean Corpuscular HGB Conc 29.7 g/dl (31.0-35.0); Mean Platelet Volume 10.5 fL (9.4-12.3); Monocytes Absolute Auto 1.5 X10*3/uL (0.1-1.2); Monocytes Percent Auto 7.9 % (2-11); Neutrophils Absolute Auto 17.1 x10*3/uL (2.0-8.3); Neutrophils Percent Auto 87.3 % (45-73); Platelet Count 358 X10*3/uL (160-400); Red Cell Distribution Width 20.8 % (11.0-16.0); SCAN SMEAR FLAG 1; White Blood Count 19.6 X10*3/uL (4.8-10.8)
[2022-05-13 09:23] LABS: Lipase 2092 U/L (8-78)
[2022-05-13 09:51] LABS: SLIDE REVIEW VERIFIED
--- NOTE | 2022-05-13 12:01 | MHC.CM.PN ---
met with pt who is independent and working cm intervention is not indicated pt is brittni vax x 2 she has her own ride home dc plan home no servceis
[2022-05-13 12:55] LABS: Glucose, Whole Blood 221 mg/dL (60-115)
[2022-05-13] MEDS: Insulin Lispro 100 UNIT/ML 3 ML VIAL SUBCUT (13:04)
--- NOTE | 2022-05-13 14:19 | PC.NURSE ---
POC 221, provider made aware. Patient remains NPO, provider giving order to cover POC with sliding scale insulin.
--- NOTE | 2022-05-13 14:33 | PC.NURSE ---
Report called and given to KIAN Jensen. Transport paged to take patient to inpatient bed.
--- NOTE | 2022-05-13 15:57 | P.PNIM_ITS ---
Subjective Subjective Date of Service: 05/14/22 Interval History: abd pain Review of Systems still has abd pain ,mild tachy Somewhat nauseated, denies any chest pain or shortness of sob or vomitin Physical Exam Vital Signs: Vital Signs: Last Vital Signs Temp 97.4 F 05/13/22 15:12 Pulse 131 H 05/13/22 15:12 Resp 17 05/13/22 15:12 BP 152/69 H 05/13/22 15:12 Pulse Ox 97 05/13/22 15:12 O2 Del Method 05/13/22 15:12 BMI result Body Mass Index 33.3 Physical exam: Appearance: Alert.? Oriented X3.? abd pain cvs: rrr, [id number] res: clear to auscultation ,no rhonchii or wheezing abd: no rebound or guarding, most pain epigastric area similar to h&p, bs present. ext pulses present , no cyanosis . neuro: axo3 , nonfocal. Objective Data Active Medications Acetaminophen (Acetaminophen Supp 650 Mg Supp.Rect) 650 mg ME Q6H PRN PRN Reason: Pain, Mild (Pain Scale 1-3) Amlodipine Besylate (Amlodipine Besylate 5 Mg Tablet) 5 mg PO DAILY [facility]; Protocol Last Admin: 05/13/22 09:38 Dose: Not Given Documented By: WILL Non-Admin Reason: Physician Held Med Aspirin (Aspirin 81 Mg Tab.Chew) 81 mg PO DAILY [facility] Last Admin: 05/13/22 08:52 Dose: Not Given Documented By: WILL Non-Admin Reason: NPO Atorvastatin Calcium (Atorvastatin Calcium 80 Mg Tablet) 80 mg PO BEDTIME [facility] Dextrose (Dextrose 50 % 25 Gm/50 Ml Syringe) 25 gm IVPUSH Q15M PRN; Protocol PRN Reason: per Hypoglycemia Standing Ord. Enoxaparin Sodium (Enoxaparin Sodium 40 Mg/0.4 Ml Syringe) 40 mg SUBCUT BEDTIME [facility] Last Admin: 05/13/22 00:27 Dose: 40 mg Documented By: INDIGO Glucose (Glucose Gel 15 Gm Gel..Gram.) 15 gm PO Q15M PRN; Protocol PRN Reason: per Hypoglycemia Standing Ord. Hydromorphone HCl (Hydromorphone Hcl 0.5 Mg/0.5 Ml Syringe) 0.5 mg IVPUSH Q4H PRN; Protocol PRN Reason: Pain, Severe (Pain Scale 7-10) Last Admin: 05/13/22 07:53 Dose: 0.5 mg Documented By: WILL Hydroxyzine HCl (Hydroxyzine Hcl 10 Mg Tablet) 10 mg PO BEDTIME [facility] Lactated Ringer's (Lr) 1,000 mls @ 250 mls/hr IVCONT .Q4H [facility] Last Infusion: 05/13/22 15:50 Dose: 0 mls/hr Documented By: DEMETRIUS Piperacillin Sod/Tazobactam (Sod 3.375 gm/ Sodium Chloride) 50 mls @ 100 mls/hr IV Q6H [facility] Last Admin: 05/13/22 15:44 Dose: 100 mls/hr Documented By: DEMETRIUS Metronidazole (Flagyl) 500 mg in 100 mls @ 100 mls/hr IV Q8H [facility] Last Infusion: 05/13/22 09:43 Dose: 0 mls/hr Documented By: WILL Insulin Human Lispro (Insulin Lispro 100 Unit/Ml 3 Ml Vial) 0 unit SUBCUT QIDACHS [facility]; Protocol Last Admin: 05/13/22 13:04 Dose: 4 unit Documented By: WILL Metoprolol Tartrate (Metoprolol Tartrate 50 Mg Tablet) 50 mg PO BID [facility]; Protocol Last Admin: 05/13/22 09:38 Dose: Not Given Documented By: WILL Non-Admin Reason: Physician Held Med Morphine Sulfate (Morphine Sulfate 4 Mg/Ml Cartridge) 4 mg IVPUSH Q4H PRN; Protocol PRN Reason: Pain, Moderate (Pain Scale 4-6 Last Admin: 05/13/22 14:23 Dose: 4 mg Documented By: WILL Omeprazole (Omeprazole 20 Mg Capsule.Dr) 20 mg PO DAILY@0630 [facility] Last Admin: 05/13/22 08:52 Dose: Not Given Documented By: WILL Non-Admin Reason: NPO Ondansetron HCl (Ondansetron Hcl 4 Mg/2 Ml Vial) 4 mg IVPUSH Q8H PRN PRN Reason: Nausea and Vomiting Last Admin: 05/13/22 01:52 Dose: 4 mg Documented By: HO.JASPERT Labs 05/13/22 08:43 05/13/22 06:39 Labs: Laboratory Results - last 24 hr 05/12/22 05/12/22 05/12/22 20:21 20:21 20:24 MCV 70.8 L MCH 21.7 L MCHC 30.6 L RDW 20.5 H Plt Count 365 MPV 10.8 Immature Gran % (Auto) 0.6 H Neut % (Auto) 91.3 H Lymph % (Auto) 3.4 L [place] % (Auto) 4.3 Eos % (Auto) 0.0 Baso % (Auto) 0.4 Lymph # (Auto) 0.7 L [place] # (Auto) 0.9 Eos # (Auto) 0.0 Baso # (Auto) 0.1 Abs Immat Gran (auto) 0.11 H Absolute Neuts (auto) 18.3 H Absolute Nucleated RBC 0.000 Nucleated RBC % (auto) 0.0 Smear Tech's Comments PT 10.8 INR 0.9 Anion Gap Estim Creat Clear Calc Estimated GFR POC Glucose Random Glucose Estimat Average Glucose Hemoglobin A1c % Lactic Acid Lactic Acid F/U @ 2Hr Lactic Acid F/U @ 4Hr Calcium Total Bilirubin AST ALT Alkaline Phosphatase Troponin I High Sens < 3.5 Total Protein Albumin Prealbumin Triglycerides Cholesterol LDL Cholesterol, Calc HDL Cholesterol Lipase COVID-19 (ADAIR) COVID-19 Clin Com 05/12/22 05/12/22 05/12/22 20:25 21:07 22:47 MCV MCH MCHC RDW Plt Count MPV Immature Gran % (Auto) Neut % (Auto) Lymph % (Auto) [place] % (Auto) Eos % (Auto) Baso % (Auto) Lymph # (Auto) [place] # (Auto) Eos # (Auto) Baso # (Auto) Abs Immat Gran (auto) Absolute Neuts (auto) Absolute Nucleated RBC Nucleated RBC % (auto) Smear Tech's Comments PT INR Anion Gap 23 H Estim Creat Clear Calc 48.5 Estimated GFR > 60 POC Glucose Random Glucose 251 H Estimat Average Glucose Hemoglobin A1c % Lactic Acid 7.2 H* Lactic Acid F/U @ 2Hr 2.6 H* Lactic Acid F/U @ 4Hr Calcium 9.3 Total Bilirubin 0.7 AST 117 H ALT 104 H Alkaline Phosphatase 251 H Troponin I High Sens Total Protein 6.1 L Albumin 3.7 Prealbumin Triglycerides 74 Cholesterol 160 LDL Cholesterol, Calc 95 HDL Cholesterol 51 Lipase > 3000 H COVID-19 (ADAIR) COVID-19 Clin Com 05/12/22 05/13/22 05/13/22 23:45 01:44 06:39 MCV MCH MCHC RDW Plt Count MPV Immature Gran % (Auto) Neut % (Auto) Lymph % (Auto) [place] % (Auto) Eos % (Auto) Baso % (Auto) Lymph # (Auto) [place] # (Auto) Eos # (Auto) Baso # (Auto) Abs Immat Gran (auto) Absolute Neuts (auto) Absolute Nucleated RBC Nucleated RBC % (auto) Smear Tech's Comments PT INR Anion Gap 21 H Estim Creat Clear Calc 53.7 Estimated GFR > 60 POC Glucose Random Glucose 215 H Estimat Average Glucose Hemoglobin A1c % Lactic Acid Lactic Acid F/U @ 2Hr Lactic Acid F/U @ 4Hr 2.1 H* Calcium 8.4 D Total Bilirubin 0.7 AST 88 H ALT 76 H Alkaline Phosphatase 198 H Troponin I High Sens Total Protein 5.4 L Albumin 3.2 L Prealbumin Triglycerides Cholesterol LDL Cholesterol, Calc HDL Cholesterol Lipase COVID-19 (ADAIR) Negative COVID-19 Clin Com See Note 05/13/22 05/13/22 05/13/22 07:27 07:27 07:34 MCV MCH MCHC RDW Plt Count MPV Immature Gran % (Auto) Neut % (Auto) Lymph % (Auto) [place] % (Auto) Eos % (Auto) Baso % (Auto) Lymph # (Auto) [place] # (Auto) Eos # (Auto) Baso # (Auto) Abs Immat Gran (auto) Absolute Neuts (auto) Absolute Nucleated RBC Nucleated RBC % (auto) Smear Tech's Comments PT INR Anion Gap Estim Creat Clear Calc Estimated GFR POC Glucose 204 H Random Glucose Estimat Average Glucose 194 Hemoglobin A1c % 8.4 Lactic Acid Lactic Acid F/U @ 2Hr Lactic Acid F/U @ 4Hr Calcium Total Bilirubin AST ALT Alkaline Phosphatase Troponin I High Sens Total Protein Albumin Prealbumin 18.0 L Triglycerides Cholesterol LDL Cholesterol, Calc HDL Cholesterol Lipase COVID-19 (ADAIR) COVID-19 Clin Com 05/13/22 05/13/22 05/13/22 08:43 08:43 12:48 MCV 74.0 L MCH 22.0 L MCHC 29.7 L RDW 20.8 H Plt Count 358 MPV 10.5 Immature Gran % (Auto) 0.7 H Neut % (Auto) 87.3 H Lymph % (Auto) 3.8 L [place] % (Auto) 7.9 Eos % (Auto) 0.0 Baso % (Auto) 0.3 Lymph # (Auto) 0.8 L [place] # (Auto) 1.5 H Eos # (Auto) 0.0 Baso # (Auto) 0.1 Abs Immat Gran (auto) 0.13 H Absolute Neuts (auto) 17.1 H Absolute Nucleated RBC 0.000 Nucleated RBC % (auto) 0.0 Smear Tech's Comments VERIFIED PT INR Anion Gap Estim Creat Clear Calc Estimated GFR POC Glucose 221 H Random Glucose Estimat Average Glucose Hemoglobin A1c % Lactic Acid Lactic Acid F/U @ 2Hr Lactic Acid F/U @ 4Hr Calcium Total Bilirubin AST ALT Alkaline Phosphatase Troponin I High Sens Total Protein Albumin Prealbumin Triglycerides Cholesterol LDL Cholesterol, Calc HDL Cholesterol Lipase 2092 H COVID-19 (ADAIR) COVID-19 Clin Com Assessment and Plan (1) Acute gallstone pancreatitis: Status: Acute (2) Sepsis: Status: Acute (3) Acidosis, lactic: Status: Acute (4) Metabolic acidosis: Status: Acute Plan 66-year-old female with past medical history of diabetes presents to the hospital with complaints of abdominal pain found to have acute pancreatitis #? acute pancreatitis-? likely gallstone pancreatitis vs 2/2 medication induced in the setting of trulicity -? has elevated LFTs,? ultrasound of the abdomen shows gallstones with no acute cholecystitis -? evidence of sepsis lactic acid improving tachycardia multifactorial-pain,anxiety ,volume depletion,also was off home metoprolol mrcp-edema of the mid pancreas as well as extensive peripancreatic and retroperitoneal fluid and fat stranding consistent with acute interstitial pancreatitis. No biliary ductal dilatation. There are gallstones but no filling defects in the common bile duct to suggest choledocholithiasis. Gi and sugery input noted -continue IV antibiotics, ppi,make NPO, aggressive IV hydration,started metoprolol,pain control( dilaudid ,morphine). #? sepsis-? possibly secondary to acute pancreatitis versus acute cholecystitis less likely abd us-less likely acute cholecystitis -? has tachycardia, leukocytosis, lactic acidosis-? if all realted to pancreatitis/pain. -? received IV fluids -? improved her symptoms - ? IV antibiotics -? follow cultures possible mild metabolic acidosis: sec to dehydration/decreased po intake ,lactic acidosis continue hydration ,repeat bmp #? lactic acidosis -? likely secondary to acute pancreatitis/dehydration -? improved after IV fluids -? continue IVF #? diabetes -? low-dose sinus scale insulin - hold po meds -? consider discontinuing Trulicity on discharge given acute pancreatitis -? diabetic diet once she is able to eat #? hypertension -? elevated -? asymptomatic -? unable to take p.o. -? added metoprolol back ?DVT prophylaxis:? Lovenox ongoing hospitlisation need:acute pancreatitis-needs IV hydration, pain med ications. Unable to take p.o. due to pancreatitis. Time Spent With Patient Time: Total time managing care of this patient today ____ minutes. Quality Stroke Does the patient have a stroke diagnosis?: No VTE Prior VTE?: No VTE Risk Level:: Medical - moderate - high VTE Device Contraindication: Treatment Not Indicated VTE Drug Contraindication: N/A - Med Ordered
[2022-05-13 16:00] LABS: Glucose, Whole Blood 148 mg/dL (60-115)
[2022-05-13 16:49] LABS: Anion Gap 16 (12-20); Blood Urea Nitrogen 34 mg/dL (9-16); Calcium 8.9 mg/dL (8.4-10.2); Carbon Dioxide 20 mmol/L (22-29); Chloride 115 mmol/L (96-108); Estimated Glomerular Filt Rate > 60; Glucose Random 156 mg/dL (60-115); Potassium 4.1 mmol/L (3.3-5.1); Sodium 147 mmol/L (135-145)
--- NOTE | 2022-05-13 16:56 | PM.EVENT ---
Event Note Date of Service: 05/13/22 Event Note: GI consult dictated Presentation is c/w gallstone pancreatitis. Imaging shows no obvious CBD stone, and labs are improving; suggests passed stone. Continue supportive treatment for pancreatitis. No indication for ERCP at this time, agree with eventual cholecystectomy. Time Spent With Patient Time: Total time managing care of this patient today ____ minutes.
[2022-05-13] MEDS: Pantoprazole Sodium 40 MG/10 ML VIAL IVPUSH (17:03)
[2022-05-13] MEDS: Metoprolol Tartrate 50 MG TABLET PO (17:04)
[2022-05-13] MEDS: Sodium Chloride 0.45 % 1,000 ML 150 ML IVCONT (18:03)
[2022-05-13 20:29] LABS: Glucose, Whole Blood 145 mg/dL (60-115)
[2022-05-13 23:03] LABS: Anion Gap 16 (12-20); Blood Urea Nitrogen 35 mg/dL (9-16); Carbon Dioxide 19 mmol/L (22-29); Chloride 116 mmol/L (96-108); Creatinine Clr Calc Pharmacy 55.1; Estimated Glomerular Filt Rate > 60; Glucose Random 130 mg/dL (60-115); Potassium 4.2 mmol/L (3.3-5.1); Sodium 147 mmol/L (135-145)
[2022-05-13] MEDS: Acetaminophen 325 MG TABLET 650 MG PO (23:51)
[2022-05-13] MEDS: hydrOXYzine HCL 10 MG TABLET PO (23:52)
--- NOTE | 2022-05-14 00:10 | CONS_ITS ---
DATE OF SERVICE: 05/13/2022 REFERRING PHYSICIAN: Khris Vanegas REASON FOR CONSULTATION: Pancreatitis. HISTORY OF PRESENT ILLNESS: The patient is a pleasant 66-year-old woman, who was admitted to the hospital after presenting to the emergency room with abdominal pain and vomiting. She was well until 3 a.m. on the day of admission when she developed rather acute onset of severe right upper quadrant abdominal pain, which radiated across the left upper quadrant and into the back. This became associated with nausea and vomiting and occurred after she had fried chicken the night before for supper. She describes 2 other episodes of similar pain, but less severe, which resolved over the past 2 months that she did not seek care for. She denies any associated fevers or chills. There was no hematemesis or melena. She was evaluated in the Emergency Department where laboratory work was done showing elevation of her liver function tests and a lipase greater than 3000. CT scanning, ultrasound imaging, and MRCP have been obtained today and later last night, which showed gallstones without cholecystitis, changes of pancreatitis and no obvious common bile duct pathology. Liver function tests and lipase have improved overnight and she feels somewhat better. PAST MEDICAL HISTORY: 1. Coronary artery disease with history of CABG x3 in 2001. 2. Hypertension. 3. Hyperlipidemia. 4. Elevated body mass index. 5. Carotid arterial disease. 6. Blood clot in the right arm that required surgery. 7. Hysterectomy. 8. Repair of cystocele. 9. Gallstone pancreatitis as above. CURRENT MEDICATIONS: Her current medication list is reviewed, in the chart. ALLERGIES: CONTRAST DYE. FAMILY HISTORY: Her sister had pancreatitis, but she is unsure of the cause. There is no pancreatic or GI tract malignancy. SOCIAL HISTORY: She does not smoke. Alcohol use is infrequent. 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 REVIEW OF SYSTEMS: SKIN: No pruritus. HEENT: Negative. CARDIOPULMONARY: No shortness of breath or chest pain. GASTROINTESTINAL: As above. GENITOURINARY: Negative. NEUROPSYCHIATRIC: Negative. PHYSICAL EXAMINATION: GENERAL: Shows a pleasant female, sitting comfortably in bed. VITAL SIGNS: Reviewed in electronic medical records and are stable. She has been tachycardic throughout the day. SKIN: Anicteric. HEENT: Shows no scleral icterus. NECK: Without lymphadenopathy or thyromegaly. LUNGS: Clear. HEART: Shows regular rate and rhythm. S1, S2. No murmur. ABDOMEN: Soft. There is no focal guarding, tenderness, or rebound. There is some mild diffuse tenderness. EXTREMITIES: Without edema. LABORATORY DATA AND IMAGING STUDIES: Reviewed. IMPRESSION: Pancreatitis. Her presentation is consistent with gallstone pancreatitis, likely having passed the stone based on her imaging studies and improving liver function tests and lipase. I discussed ERCP with her and have not recommended this at the present time given her clinical improvement. I would monitor her vital signs carefully as she is persistently tachycardic and may require an increase in intravenous fluids. She has been started on antibiotics because of her symptoms and elevated white blood cell count and I agree with continuing these. She will eventually need cholecystectomy once her pancreatitis has resolved. There does not appear to be any other etiology for it at this time based on her presentation. Thanks for asking me to see her. I will follow her in the hospital with you. MD FRED Neal/JUAN / [id number]
[2022-05-14] MEDS: metroNIDAZOLE/NS 500 MG/100 ML PIGGYBACK 100 MG IV ×4 (00:36→23:43)
[2022-05-14 04:00] VITALS: BP 102/57; PULSE 110; RESP 15; TEMP 37.4; O2SAT 95
[2022-05-14 05:48] VITALS: BMI 33.0
[2022-05-14] MEDS: Pantoprazole Sodium 40 MG/10 ML VIAL IVPUSH ×2 (05:48→15:49)
[2022-05-14] MEDS: Piperacillin Sodium/Tazobactam 3.375 GM in 0.9 % Sodium Chloride 50 ML IV ×4 (05:48→20:23)
[2022-05-14 06:34] LABS: Hematocrit 33.3 % (37.0-47.0); Mean Corpuscular Hemoglobin 22.1 pg (27.0-33.0); Mean Corpuscular Volume 73.7 fL (80.0-98.0); Mean Platelet Volume 10.6 fL (9.4-12.3); Platelet Count 308 X10*3/uL (160-400); Red Blood Count 4.52 X10*6/uL (4.20-5.50); Red Cell Distribution Width 21.2 % (11.0-16.0); White Blood Count 23.4 X10*3/uL (4.8-10.8)
[2022-05-14 06:59] LABS: Anion Gap 18 (12-20); Blood Urea Nitrogen 37 mg/dL (9-16); Calcium 8.8 mg/dL (8.4-10.2); Carbon Dioxide 16 mmol/L (22-29); Chloride 115 mmol/L (96-108); Creatinine Clr Calc Pharmacy 58.4; Estimated Glomerular Filt Rate > 60; Glucose Random 92 mg/dL (60-115); Sodium 145 mmol/L (135-145)
[2022-05-14 07:11] VITALS: BP 110/56; PULSE 111; RESP 20; TEMP 36.7; O2SAT 94
[2022-05-14 07:43] LABS: Glucose, Whole Blood 93 mg/dL (60-115)
--- NOTE | 2022-05-14 07:50 | P.PNGS_ITS ---
Subjective Subjective Date of Service: 05/14/22 Patient reports: no new complaints, feels better, pain is less, flatus and no bowel movement Interval history: The patient reports that she feels better than when I saw her yesterday afternoon. The pain is improved as has her nausea and vomiting. She denies any chest pain, difficulty breathing or shortness of breath and denies any new symptoms of localizing neurologic issues. The patient reports her last urinary void was around 4-430 a.m. Physical Exam Vital Signs: Vital Signs: Last Vital Signs Temp 98.1 F 05/14/22 07:11 Pulse 111 H 05/14/22 07:11 Resp 20 05/14/22 07:11 BP 110/56 L 05/14/22 07:11 Pulse Ox 94 05/14/22 07:11 O2 Del Method 05/14/22 07:11 BMI result Body Mass Index 33.0 On exam, the patient is nontoxic Sclera are anicteric Abdomen is soft with no peritoneal sign. Vague diffuse upper abdominal tenderness in the epigastrium is still present with no peritoneal sign Objective Data Active Medications Acetaminophen (Acetaminophen 325 Mg Tablet) 650 mg PO Q6H PRN PRN Reason: Pain, Mild (Pain Scale 1-3) Last Admin: 05/13/22 23:51 Dose: 650 mg Documented By: ANGÉLICA Amlodipine Besylate (Amlodipine Besylate 5 Mg Tablet) 5 mg PO DAILY [facility]; Protocol Last Admin: 05/13/22 09:38 Dose: Not Given Documented By: WILL Non-Admin Reason: Physician Held Med Aspirin (Aspirin 81 Mg Tab.Chew) 81 mg PO DAILY [facility] Last Admin: 05/13/22 08:52 Dose: Not Given Documented By: WILL Non-Admin Reason: NPO Atorvastatin Calcium (Atorvastatin Calcium 80 Mg Tablet) 80 mg PO BEDTIME [facility] Last Admin: 05/13/22 22:11 Dose: Not Given Documented By: ANGÉLICA Non-Admin Reason: NPO Dextrose (Dextrose 50 % 25 Gm/50 Ml Syringe) 25 gm IVPUSH Q15M PRN; Protocol PRN Reason: per Hypoglycemia Standing Ord. Enoxaparin Sodium (Enoxaparin Sodium 40 Mg/0.4 Ml Syringe) 40 mg SUBCUT BEDTIME [facility] Last Admin: 05/13/22 23:35 Dose: 40 mg Documented By: ANGÉLICA Glucose (Glucose Gel 15 Gm Gel..Gram.) 15 gm PO Q15M PRN; Protocol PRN Reason: per Hypoglycemia Standing Ord. Hydromorphone HCl (Hydromorphone Hcl 0.5 Mg/0.5 Ml Syringe) 0.5 mg IVPUSH Q4H PRN; Protocol PRN Reason: Pain, Severe (Pain Scale 7-10) Last Admin: 05/13/22 07:53 Dose: 0.5 mg Documented By: WILL Hydroxyzine HCl (Hydroxyzine Hcl 10 Mg Tablet) 10 mg PO BEDTIME [facility] Last Admin: 05/13/22 23:52 Dose: 10 mg Documented By: ANGÉLICA Hydroxyzine HCl (Hydroxyzine Hcl 25 Mg Tablet) 25 mg PO Q6H PRN PRN Reason: anxiety/restlessness Piperacillin Sod/Tazobactam (Sod 3.375 gm/ Sodium Chloride) 50 mls @ 100 mls/hr IV Q6H [facility] Last Infusion: 05/14/22 06:18 Dose: 0 mls/hr Documented By: ANGÉLICA Metronidazole (Flagyl) 500 mg in 100 mls @ 100 mls/hr IV Q8H [facility] Last Infusion: 05/14/22 01:51 Dose: 0 mls/hr Documented By: ANGÉLICA Sodium Chloride (Sodium Chloride 0.45 %) 1,000 mls @ 150 mls/hr IVCONT .Q6H40M [facility] Last Infusion: 05/14/22 06:43 Dose: 150 mls/hr Documented By: ANGÉLICA Insulin Human Lispro (Insulin Lispro 100 Unit/Ml 3 Ml Vial) 0 unit SUBCUT QIDACHS [facility]; Protocol Last Admin: 05/14/22 07:44 Dose: Not Given Documented By: DEMETRIUS Non-Admin Reason: No Insulin Coverage Metoprolol Tartrate (Metoprolol Tartrate 50 Mg Tablet) 50 mg PO BID [facility]; Protocol Last Admin: 05/13/22 17:04 Dose: 50 mg Documented By: DEMETRIUS Comments: MD verbal order read back to administer Morphine Sulfate (Morphine Sulfate 4 Mg/Ml Cartridge) 4 mg IVPUSH Q4H PRN; Protocol PRN Reason: Pain, Moderate (Pain Scale 4-6 Last Admin: 05/13/22 23:52 Dose: 4 mg Documented By: ANGÉLICA Ondansetron HCl (Ondansetron Hcl 4 Mg/2 Ml Vial) 4 mg IVPUSH Q8H PRN PRN Reason: Nausea and Vomiting Last Admin: 05/13/22 01:52 Dose: 4 mg Documented By: INDIGO Pantoprazole Sodium (Pantoprazole Sodium 40 Mg/10 Ml Vial) 40 mg IVPUSH BID@0630,1630 [facility] Last Admin: 05/14/22 05:48 Dose: 40 mg Documented By: ANGÉLICA Labs 05/14/22 05:58 05/14/22 05:58 Labs: Laboratory Results - last 24 hr 05/13/22 05/13/22 05/13/22 07:27 08:43 08:43 MCV 74.0 L MCH 22.0 L MCHC 29.7 L RDW 20.8 H Plt Count 358 MPV 10.5 Immature Gran % (Auto) 0.7 H Neut % (Auto) 87.3 H Lymph % (Auto) 3.8 L [place] % (Auto) 7.9 Eos % (Auto) 0.0 Baso % (Auto) 0.3 Lymph # (Auto) 0.8 L [place] # (Auto) 1.5 H Eos # (Auto) 0.0 Baso # (Auto) 0.1 Abs Immat Gran (auto) 0.13 H Absolute Neuts (auto) 17.1 H Absolute Nucleated RBC 0.000 Nucleated RBC % (auto) 0.0 Smear Tech's Comments VERIFIED Anion Gap Estim Creat Clear Calc Estimated GFR POC Glucose Random Glucose Estimat Average Glucose 194 Hemoglobin A1c % 8.4 Calcium Lipase 2092 H 05/13/22 05/13/22 05/13/22 12:48 15:55 16:15 MCV MCH MCHC RDW Plt Count MPV Immature Gran % (Auto) Neut % (Auto) Lymph % (Auto) [place] % (Auto) Eos % (Auto) Baso % (Auto) Lymph # (Auto) [place] # (Auto) Eos # (Auto) Baso # (Auto) Abs Immat Gran (auto) Absolute Neuts (auto) Absolute Nucleated RBC Nucleated RBC % (auto) Smear Tech's Comments Anion Gap 16 Estim Creat Clear Calc 53.0 Estimated GFR > 60 POC Glucose 221 H 148 H Random Glucose 156 H Estimat Average Glucose Hemoglobin A1c % Calcium 8.9 Lipase 05/13/22 05/13/22 05/14/22 20:24 22:36 05:58 MCV 73.7 L MCH 22.1 L MCHC 30.0 L RDW 21.2 H Plt Count 308 MPV 10.6 Immature Gran % (Auto) Neut % (Auto) Lymph % (Auto) [place] % (Auto) Eos % (Auto) Baso % (Auto) Lymph # (Auto) [place] # (Auto) Eos # (Auto) Baso # (Auto) Abs Immat Gran (auto) Absolute Neuts (auto) Absolute Nucleated RBC 0.000 Nucleated RBC % (auto) 0.0 Smear Tech's Comments Anion Gap 16 Estim Creat Clear Calc 55.1 Estimated GFR > 60 POC Glucose 145 H Random Glucose 130 H Estimat Average Glucose Hemoglobin A1c % Calcium 9.0 Lipase 05/14/22 05/14/22 05:58 07:13 MCV MCH MCHC RDW Plt Count MPV Immature Gran % (Auto) Neut % (Auto) Lymph % (Auto) [place] % (Auto) Eos % (Auto) Baso % (Auto) Lymph # (Auto) [place] # (Auto) Eos # (Auto) Baso # (Auto) Abs Immat Gran (auto) Absolute Neuts (auto) Absolute Nucleated RBC Nucleated RBC % (auto) Smear Tech's Comments Anion Gap 18 Estim Creat Clear Calc 58.4 Estimated GFR > 60 POC Glucose 93 Random Glucose 92 Estimat Average Glucose Hemoglobin A1c % Calcium 8.8 Lipase Microbiology Microbiology Results: Microbiology 05/12/22 20:21 Blood Culture - Preliminary Blood - Venous No growth after 24 hours. 05/12/22 20:21 Blood Culture - Preliminary Blood - Venous No growth after 24 hours. Procedures Date of Service Date of Service: 05/14/22 Progress Note: A&P Assessment and plan (1) S/P triple vessel bypass: Status: Acute (2) Hyperlipidemia: Status: Acute (3) Diabetes: Status: Acute (4) Morbid (severe) obesity due to excess calories: Status: Acute (5) Umbilical hernia: Status: Acute (6) Acute gallstone pancreatitis: Status: Acute Plan Increasing BUN and white count noted. Patient still has significant fluid shifts Patient was on Tresiba and Trulicity, both agents can cause pancreatitis. While the patient does have gallstones, there is no intrahepatic ductal dilation or elevation of the total bilirubin. Patient does have fatty liver which can cause elevated transaminases, consequently given the MRCP findings and pancreatitis, it is not 100% certain that this is gallstone pancreatitis since both GLP-1 agents the patient was on can cause pancreatitis. I briefly discussed this with the patient. Continue NPO, IV hydration and trending of labs and physical exam. 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 Time Spent With Patient Time: Total time managing care of this patient today ____ minutes. Quality Stroke Does the patient have a stroke diagnosis?: No VTE Prior VTE?: No VTE Risk Level:: Medical - moderate - high VTE Device Contraindication: Treatment Not Indicated VTE Drug Contraindication: N/A - Med Ordered
[2022-05-14 08:42] LABS: Lipase 511 U/L (8-78)
[2022-05-14] MEDS: Aspirin 81 MG TAB.CHEW PO (08:48)
[2022-05-14] MEDS: Metoprolol Tartrate 50 MG TABLET PO ×2 (08:48→20:22)
[2022-05-14] MEDS: Lactated Ringers 1,000 ML 150 ML IVCONT ×2 (08:49→19:17)
[2022-05-14 09:23] LABS: Alanine Aminotransferase 55 U/L (0-31); Albumin Level 2.9 g/dL (3.5-5.0); Alkaline Phosphatase 143 U/L (39-117); Aspartate Amino Transferase 67 U/L (5-31); Bilirubin Direct 0.3 mg/dL (0.0-0.5); Bilirubin Total 0.6 mg/dL (0.0-1.0); Total Protein 4.9 g/dL (6.5-8.0)
[2022-05-14 11:15] VITALS: BP 153/63; PULSE 86; RESP 18; TEMP 36.7; O2SAT 98
[2022-05-14 11:32] LABS: Glucose, Whole Blood 143 mg/dL (60-115)
[2022-05-14] MEDS: HYDROmorphone HCl 0.5 MG/0.5 ML SYRINGE IVPUSH (13:32)
--- NOTE | 2022-05-14 14:37 | P.PNIM_ITS ---
Subjective Subjective Date of Service: 05/14/22 Interval History: Follow-up for acute pancreatitis, leukocytosis. Review of Systems Patient says that abdominal pain is somewhat better than yesterday, nausea improved, denies any chest pain or shortness of breath or fever chills. Physical Exam Vital Signs: Vital Signs: Last Vital Signs Temp 98.1 F 05/14/22 11:15 Pulse 86 05/14/22 11:15 Resp 18 05/14/22 11:15 BP 153/63 H 05/14/22 11:15 Pulse Ox 98 05/14/22 11:15 O2 Del Method 05/14/22 11:15 BMI result Body Mass Index 33.0 Appearance: Alert.? Oriented X3.? abd pain cvs: rrr, [id number] res: clear to auscultation ,no rhonchii or wheezing abd: no rebound or guarding, most pain epigastric improving, bs present. ext pulses present , no cyanosis . neuro: axo3 , nonfocal. Objective Data Active Medications Acetaminophen (Acetaminophen 325 Mg Tablet) 650 mg PO Q6H PRN PRN Reason: Pain, Mild (Pain Scale 1-3) Last Admin: 05/13/22 23:51 Dose: 650 mg Documented By: ANGÉLICA Amlodipine Besylate (Amlodipine Besylate 5 Mg Tablet) 5 mg PO DAILY [facility]; Protocol Last Admin: 05/14/22 08:53 Dose: Not Given Documented By: DEMETRIUS Non-Admin Reason: NPO Aspirin (Aspirin 81 Mg Tab.Chew) 81 mg PO DAILY [facility] Last Admin: 05/14/22 08:48 Dose: 81 mg Documented By: DEMETRIUS Atorvastatin Calcium (Atorvastatin Calcium 80 Mg Tablet) 80 mg PO BEDTIME [facility] Last Admin: 05/13/22 22:11 Dose: Not Given Documented By: ANGÉLICA Non-Admin Reason: NPO Dextrose (Dextrose 50 % 25 Gm/50 Ml Syringe) 25 gm IVPUSH Q15M PRN; Protocol PRN Reason: per Hypoglycemia Standing Ord. Enoxaparin Sodium (Enoxaparin Sodium 40 Mg/0.4 Ml Syringe) 40 mg SUBCUT BEDTIME [facility] Last Admin: 05/13/22 23:35 Dose: 40 mg Documented By: ANGÉLICA Glucose (Glucose Gel 15 Gm Gel..Gram.) 15 gm PO Q15M PRN; Protocol PRN Reason: per Hypoglycemia Standing Ord. Hydromorphone HCl (Hydromorphone Hcl 0.5 Mg/0.5 Ml Syringe) 0.5 mg IVPUSH Q4H PRN; Protocol PRN Reason: Pain, Severe (Pain Scale 7-10) Last Admin: 05/14/22 13:32 Dose: 0.5 mg Documented By: DEMETRIUS Hydroxyzine HCl (Hydroxyzine Hcl 10 Mg Tablet) 10 mg PO BEDTIME [facility] Last Admin: 05/13/22 23:52 Dose: 10 mg Documented By: ANGÉLICA Hydroxyzine HCl (Hydroxyzine Hcl 25 Mg Tablet) 25 mg PO Q6H PRN PRN Reason: anxiety/restlessness Piperacillin Sod/Tazobactam (Sod 3.375 gm/ Sodium Chloride) 50 mls @ 100 mls/hr IV Q6H [facility] Last Infusion: 05/14/22 09:21 Dose: 0 mls/hr Documented By: DEMETRIUS Metronidazole (Flagyl) 500 mg in 100 mls @ 100 mls/hr IV Q8H [facility] Last Infusion: 05/14/22 09:51 Dose: 0 mls/hr Documented By: DEMETRIUS Lactated Ringer's (Lr) 1,000 mls @ 150 mls/hr IVCONT .Q6H40M [facility] Last Admin: 05/14/22 08:49 Dose: 150 mls/hr Documented By: DEMETRIUS Insulin Human Lispro (Insulin Lispro 100 Unit/Ml 3 Ml Vial) 0 unit SUBCUT QIDACHS [facility]; Protocol Last Admin: 05/14/22 11:46 Dose: Not Given Documented By: DEMETRIUS Non-Admin Reason: No Insulin Coverage Metoprolol Tartrate (Metoprolol Tartrate 50 Mg Tablet) 50 mg PO BID [facility]; Protocol Last Admin: 05/14/22 08:48 Dose: 50 mg Documented By: DEMETRIUS Morphine Sulfate (Morphine Sulfate 4 Mg/Ml Cartridge) 4 mg IVPUSH Q4H PRN; Protocol PRN Reason: Pain, Moderate (Pain Scale 4-6 Last Admin: 05/13/22 23:52 Dose: 4 mg Documented By: ANGÉLICA Ondansetron HCl (Ondansetron Hcl 4 Mg/2 Ml Vial) 4 mg IVPUSH Q8H PRN PRN Reason: Nausea and Vomiting Last Admin: 05/13/22 01:52 Dose: 4 mg Documented By: INDIGO Pantoprazole Sodium (Pantoprazole Sodium 40 Mg/10 Ml Vial) 40 mg IVPUSH BID@0630,1630 MAXIM Last Admin: 05/14/22 05:48 Dose: 40 mg Documented By: ANGÉLICA Labs 05/14/22 05:58 05/14/22 05:58 Labs: Laboratory Results - last 24 hr 05/13/22 05/13/22 05/13/22 15:55 16:15 20:24 MCV MCH MCHC RDW Plt Count MPV Absolute Nucleated RBC Nucleated RBC % (auto) Anion Gap 16 Estim Creat Clear Calc 53.0 Estimated GFR > 60 POC Glucose 148 H 145 H Random Glucose 156 H Calcium 8.9 Total Bilirubin Direct Bilirubin AST ALT Alkaline Phosphatase Total Protein Albumin Lipase 05/13/22 05/14/22 05/14/22 22:36 05:58 05:58 MCV 73.7 L MCH 22.1 L MCHC 30.0 L RDW 21.2 H Plt Count 308 MPV 10.6 Absolute Nucleated RBC 0.000 Nucleated RBC % (auto) 0.0 Anion Gap 16 18 Estim Creat Clear Calc 55.1 58.4 Estimated GFR > 60 > 60 POC Glucose Random Glucose 130 H 92 Calcium 9.0 8.8 Total Bilirubin Direct Bilirubin AST ALT Alkaline Phosphatase Total Protein Albumin Lipase 511 H 05/14/22 05/14/22 05/14/22 07:13 08:50 11:18 MCV MCH MCHC RDW Plt Count MPV Absolute Nucleated RBC Nucleated RBC % (auto) Anion Gap Estim Creat Clear Calc Estimated GFR POC Glucose 93 143 H Random Glucose Calcium Total Bilirubin 0.6 Direct Bilirubin 0.3 AST 67 H ALT 55 H Alkaline Phosphatase 143 H Total Protein 4.9 L Albumin 2.9 L Lipase Microbiology Microbiology Results: Microbiology 05/12/22 20:21 Blood Culture - Preliminary Blood - Venous No growth after 24 hours. 05/12/22 20:21 Blood Culture - Preliminary Blood - Venous No growth after 24 hours. Assessment and Plan (1) Metabolic acidosis: Status: Acute (2) Sepsis: Status: Acute (3) Acute pancreatitis: Status: Acute (4) Overweight: Status: Acute Plan 66-year-old female with past medical history of diabetes presents to the hospital with complaints of abdominal pain found to have acute pancreatitis #? acute pancreatitis-? likely gallstone pancreatitis vs 2/2 medication induced in the setting of trulicity -? has elevated LFTs,? ultrasound of the abdomen shows gallstones with no acute cholecystitis -? evidence of sepsis lactic acid improved , leukocytosis trending up but blood culture at @ 24 hour negative, patient's abdominal pain is improving tachycardia multifactorial-pain,anxiety ,volume depletion,also was off home metoprolol mrcp-edema of the mid pancreas as well as extensive peripancreatic and retroperitoneal fluid and fat stranding consistent with acute interstitial pancreatitis. No biliary ductal dilatation. There are gallstones but no filling defects in the common bile duct to suggest choledocholithiasis. Gi and sugery input noted -continue IV antibiotics, ppi,make NPO, aggressive IV hydration,started metoprolol,pain control( dilaudid ,morphine). #? sepsis-? possibly secondary to acute pancreatitis versus acute cholecystitis less likely abd us-less likely acute cholecystitis tachycardia resolved , leukocytosis trendin up -?if all realted to pancreatitis/pain. -? received IV fluids -? improved her symptoms - ? IV antibiotics -? follow cultures possible mild metabolic acidosis: sec to dehydration/decreased po intake ,lactic acidosis improved with hydration, as well as hyponatremia improved with hydration. #? lactic acidosis: improved with hydration. #? diabetes -? low-dose sinus scale insulin - hold po meds -? consider discontinuing Trulicity on discharge given acute pancreatitis started on clear liquid diet. #? hypertension -? elevated -? asymptomatic -? unable to take p.o. -? added metoprolol back ?DVT prophylaxis:? Lovenox ongoing hospitlisation need:acute pancreatitis-needs IV hydration, pain medications, need diet adjustment iftoleerates , blood cultures need to be neg@48 hrs also. Time Spent With Patient Time: Total time managing care of this patient today ____ minutes. Quality Stroke Does the patient have a stroke diagnosis?: No VTE Prior VTE?: No VTE Risk Level:: Medical - moderate - high VTE Device Contraindication: Treatment Not Indicated VTE Drug Contraindication: N/A - Med Ordered
[2022-05-14 15:01] VITALS: BP 140/65; PULSE 105; RESP 18; TEMP 37.3; O2SAT 97
[2022-05-14 15:35] LABS: Glucose, Whole Blood 331 mg/dL (60-115)
[2022-05-14] MEDS: Insulin Lispro 100 UNIT/ML 3 ML VIAL SUBCUT ×2 (15:52→20:23)
[2022-05-14 19:35] VITALS: BP 121/59; PULSE 78; RESP 18; TEMP 37; O2SAT 97
[2022-05-14 20:16] LABS: Glucose, Whole Blood 168 mg/dL (60-115)
[2022-05-14] MEDS: Acetaminophen 325 MG TABLET 650 MG PO (20:22)
[2022-05-14] MEDS: Atorvastatin Calcium 80 MG TABLET PO (20:22)
[2022-05-14] MEDS: hydrOXYzine HCL 10 MG TABLET PO (20:22)
[2022-05-14] MEDS: Enoxaparin Sodium 40 MG/0.4 ML SYRINGE SUBCUT (21:02)
[2022-05-15] VITALS (8 sets, daily range): BP systolic 100–166; BP diastolic 49–79; PULSE 70–95; RESP 13–20; TEMP 36.1–37.4; O2SAT 94–96; BMI 34.7
[2022-05-15] MEDS: Piperacillin Sodium/Tazobactam 3.375 GM in 0.9 % Sodium Chloride 50 ML IV ×4 (02:37→20:59)
[2022-05-15] MEDS: Lactated Ringers 1,000 ML 150 ML IVCONT ×2 (03:23→11:42)
[2022-05-15] MEDS: Pantoprazole Sodium 40 MG/10 ML VIAL IVPUSH ×2 (05:53→15:36)
[2022-05-15 08:26] LABS: Glucose, Whole Blood 165 mg/dL (60-115)
[2022-05-15] MEDS: metroNIDAZOLE/NS 500 MG/100 ML PIGGYBACK 100 MG IV ×3 (08:32→23:30)
[2022-05-15] MEDS: Insulin Lispro 100 UNIT/ML 3 ML VIAL SUBCUT ×4 (08:32→20:55)
[2022-05-15] MEDS: Aspirin 81 MG TAB.CHEW PO (08:33)
[2022-05-15] MEDS: amLODIPine Besylate 5 MG TABLET PO (08:33)
[2022-05-15] MEDS: HYDROmorphone HCl 0.5 MG/0.5 ML SYRINGE IVPUSH (08:33)
[2022-05-15] MEDS: Metoprolol Tartrate 50 MG TABLET PO ×2 (08:33→20:56)
[2022-05-15 08:35] LABS: Hematocrit 30.6 % (37.0-47.0); Hemoglobin 9.6 g/dl (12.0-16.0); Mean Corpuscular HGB Conc 31.4 g/dl (31.0-35.0); Mean Corpuscular Hemoglobin 22.2 pg (27.0-33.0); Mean Corpuscular Volume 70.7 fL (80.0-98.0); Mean Platelet Volume 10.6 fL (9.4-12.3); Platelet Count 266 X10*3/uL (160-400); Red Blood Count 4.33 X10*6/uL (4.20-5.50); Red Cell Distribution Width 20.6 % (11.0-16.0); White Blood Count 17.7 X10*3/uL (4.8-10.8)
[2022-05-15 08:42] LABS: Glucose, Whole Blood 114 mg/dL (60-115)
[2022-05-15 09:03] LABS: Anion Gap 17 (12-20); Blood Urea Nitrogen 32 mg/dL (9-16); Calcium 7.9 mg/dL (8.4-10.2); Carbon Dioxide 17 mmol/L (22-29); Chloride 107 mmol/L (96-108); Creatinine Clr Calc Pharmacy 69.1; Estimated Glomerular Filt Rate > 60; Glucose Random 108 mg/dL (60-115); Potassium 3.5 mmol/L (3.3-5.1); Sodium 137 mmol/L (135-145)
[2022-05-15 11:26] LABS: Glucose, Whole Blood 159 mg/dL (60-115)
--- NOTE | 2022-05-15 13:24 | PM.GIPN ---
Subjective Subjective Date of Service: 05/15/22 Interval History: less discomfort some nausea with clears Critical Care Time (minutes): 0 Physical Exam Vital Signs: Vital Signs: Last Vital Signs Temp 97.4 F 05/15/22 11:29 Pulse 73 05/15/22 11:29 Resp 18 05/15/22 11:29 BP 155/58 H 05/15/22 11:29 Pulse Ox 96 05/15/22 11:29 O2 Del Method 05/15/22 11:29 BMI result Body Mass Index 34.7 GI: Other: abdomen is soft and not focally tender Objective Data Labs 05/15/22 08:01 05/15/22 08:01 Labs: Laboratory Results - last 24 hr 05/14/22 05/14/22 05/15/22 15:30 19:43 07:31 WBC RBC Hgb Hct MCV MCH MCHC RDW Plt Count MPV Absolute Nucleated RBC Nucleated RBC % (auto) Sodium Potassium Chloride Carbon Dioxide Anion Gap BUN Creatinine Estim Creat Clear Calc Estimated GFR POC Glucose 331 H 168 H 114 Random Glucose Calcium 05/15/22 05/15/22 05/15/22 08:01 08:01 08:22 WBC 17.7 H RBC 4.33 Hgb 9.6 L Hct 30.6 L MCV 70.7 L MCH 22.2 L MCHC 31.4 RDW 20.6 H Plt Count 266 MPV 10.6 Absolute Nucleated RBC 0.000 Nucleated RBC % (auto) 0.0 Sodium 137 Potassium 3.5 Chloride 107 Carbon Dioxide 17 L Anion Gap 17 BUN 32 H Creatinine 0.66 Estim Creat Clear Calc 69.1 Estimated GFR > 60 POC Glucose 165 H Random Glucose 108 Calcium 7.9 L D 05/15/22 11:13 WBC RBC Hgb Hct MCV MCH MCHC RDW Plt Count MPV Absolute Nucleated RBC Nucleated RBC % (auto) Sodium Potassium Chloride Carbon Dioxide Anion Gap BUN Creatinine Estim Creat Clear Calc Estimated GFR POC Glucose 159 H Random Glucose Calcium Microbiology Microbiology Results: Microbiology 05/12/22 20:21 Blood - Venous Blood Culture - Preliminary No growth after 48 hours. 05/12/22 20:21 Blood - Venous Blood Culture - Preliminary No growth after 48 hours. Procedures Date of Service Date of Service: 05/15/22 Progress Note: A&P Assessment and plan (1) Acute gallstone pancreatitis: Status: Acute Assessment and Plan: continues to slowly improve tachycardia better continue present management Time Spent With Patient Time: Total time managing care of this patient today ____ minutes. Quality Stroke Does the patient have a stroke diagnosis?: No VTE Prior VTE?: No VTE Risk Level:: Medical - moderate - high VTE Device Contraindication: Treatment Not Indicated VTE Drug Contraindication: N/A - Med Ordered
--- NOTE | 2022-05-15 14:11 | P.PNGS_ITS ---
Subjective Subjective Date of Service: 05/15/22 Patient reports: no new complaints, feels better, pain is less, tolerating liquids well and flatus Interval history: The patient was seen around 0 700 this morning. She reports that she is much better and tolerating liquids. She denies any significant pain in further denies any headache, neurologic symptoms, chest pain, difficulty breathing or shortness of breath. She is passing gas. Physical Exam Vital Signs: Vital Signs: Last Vital Signs Temp 97.4 F 05/15/22 11:29 Pulse 73 05/15/22 11:29 Resp 18 05/15/22 11:29 BP 155/58 H 05/15/22 11:29 Pulse Ox 96 05/15/22 11:29 O2 Del Method 05/15/22 11:29 BMI result Body Mass Index 34.7 On exam she is nontoxic Abdomen is soft with much less tenderness than at presentation. No rebound, rigidity or guarding is noted. Objective Data Active Medications Acetaminophen (Acetaminophen 325 Mg Tablet) 650 mg PO Q6H PRN PRN Reason: Pain, Mild (Pain Scale 1-3) Last Admin: 05/14/22 20:22 Dose: 650 mg Documented By: ANTOINETTE Amlodipine Besylate (Amlodipine Besylate 5 Mg Tablet) 5 mg PO DAILY [facility]; Protocol Last Admin: 05/15/22 08:33 Dose: 5 mg Documented By: IRAJ Aspirin (Aspirin 81 Mg Tab.Chew) 81 mg PO DAILY [facility] Last Admin: 05/15/22 08:33 Dose: 81 mg Documented By: IRAJ Atorvastatin Calcium (Atorvastatin Calcium 80 Mg Tablet) 80 mg PO BEDTIME [facility] Last Admin: 05/14/22 20:22 Dose: 80 mg Documented By: ANTOINETTE Dextrose (Dextrose 50 % 25 Gm/50 Ml Syringe) 25 gm IVPUSH Q15M PRN; Protocol PRN Reason: per Hypoglycemia Standing Ord. Enoxaparin Sodium (Enoxaparin Sodium 40 Mg/0.4 Ml Syringe) 40 mg SUBCUT BEDTIME [facility] Last Admin: 05/14/22 21:02 Dose: 40 mg Documented By: ANTOINETTE Glucose (Glucose Gel 15 Gm Gel..Gram.) 15 gm PO Q15M PRN; Protocol PRN Reason: per Hypoglycemia Standing Ord. Hydromorphone HCl (Hydromorphone Hcl 0.5 Mg/0.5 Ml Syringe) 0.5 mg IVPUSH Q4H PRN; Protocol PRN Reason: Pain, Severe (Pain Scale 7-10) Last Admin: 05/15/22 08:33 Dose: 0.5 mg Documented By: IRAJ Hydroxyzine HCl (Hydroxyzine Hcl 10 Mg Tablet) 10 mg PO BEDTIME [facility] Last Admin: 05/14/22 20:22 Dose: 10 mg Documented By: ANTOINETTE Hydroxyzine HCl (Hydroxyzine Hcl 25 Mg Tablet) 25 mg PO Q6H PRN PRN Reason: anxiety/restlessness Piperacillin Sod/Tazobactam (Sod 3.375 gm/ Sodium Chloride) 50 mls @ 100 mls/hr IV Q6H [facility] Last Infusion: 05/15/22 11:44 Dose: 0 mls/hr Documented By: IRAJ Metronidazole (Flagyl) 500 mg in 100 mls @ 100 mls/hr IV Q8H [facility] Last Infusion: 05/15/22 11:44 Dose: 0 mls/hr Documented By: IRAJ Lactated Ringer's (Lr) 1,000 mls @ 150 mls/hr IVCONT .Q6H40M [facility] Last Admin: 05/15/22 11:42 Dose: 150 mls/hr Documented By: IRAJ Insulin Human Lispro (Insulin Lispro 100 Unit/Ml 3 Ml Vial) 0 unit SUBCUT QIDACHS [facility]; Protocol Last Admin: 05/15/22 11:43 Dose: 2 unit Documented By: IRAJ Metoprolol Tartrate (Metoprolol Tartrate 50 Mg Tablet) 50 mg PO BID [facility]; Protocol Last Admin: 05/15/22 08:33 Dose: 50 mg Documented By: IRAJ Morphine Sulfate (Morphine Sulfate 4 Mg/Ml Cartridge) 4 mg IVPUSH Q4H PRN; Protocol PRN Reason: Pain, Moderate (Pain Scale 4-6 Last Admin: 05/13/22 23:52 Dose: 4 mg Documented By: ANGÉLICA Ondansetron HCl (Ondansetron Hcl 4 Mg/2 Ml Vial) 4 mg IVPUSH Q8H PRN PRN Reason: Nausea and Vomiting Last Admin: 05/13/22 01:52 Dose: 4 mg Documented By: INDIGO Pantoprazole Sodium (Pantoprazole Sodium 40 Mg/10 Ml Vial) 40 mg IVPUSH BID@0630,1630 MAXIM Last Admin: 05/15/22 05:53 Dose: 40 mg Documented By: ANTOINETTE Labs 05/15/22 08:01 05/15/22 08:01 Labs: Laboratory Results - last 24 hr 05/14/22 05/14/22 05/15/22 15:30 19:43 07:31 MCV MCH MCHC RDW Plt Count MPV Absolute Nucleated RBC Nucleated RBC % (auto) Anion Gap Estim Creat Clear Calc Estimated GFR POC Glucose 331 H 168 H 114 Random Glucose Calcium 05/15/22 05/15/22 05/15/22 08:01 08:01 08:22 MCV 70.7 L MCH 22.2 L MCHC 31.4 RDW 20.6 H Plt Count 266 MPV 10.6 Absolute Nucleated RBC 0.000 Nucleated RBC % (auto) 0.0 Anion Gap 17 Estim Creat Clear Calc 69.1 Estimated GFR > 60 POC Glucose 165 H Random Glucose 108 Calcium 7.9 L D 05/15/22 11:13 MCV MCH MCHC RDW Plt Count MPV Absolute Nucleated RBC Nucleated RBC % (auto) Anion Gap Estim Creat Clear Calc Estimated GFR POC Glucose 159 H Random Glucose Calcium Microbiology Microbiology Results: Microbiology 05/12/22 20:21 Blood Culture - Preliminary Blood - Venous No growth after 48 hours. 05/12/22 20:21 Blood Culture - Preliminary Blood - Venous No growth after 48 hours. 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 Patient was on Tresiba and Trulicity, both agents can cause pancreatitis.? While the patient does have gallstones, there is no intrahepatic ductal dilation or elevation of the total bilirubin.? Patient does have fatty liver which can cause elevated transaminases, and the patient recalls being told this several years ago. However record shows elevated alkaline phosphatase and transaminases in 2017. Given the MRCP findings of no intrahepatic ductal dilation or choledocholithiasis and pancreatitis, it is not 100% certain that this is gallstone pancreatitis since both GLP-1 agents the patient was on can cause pancreatitis. The patient's diabetes is suboptimally controlled. Patient stated she would contact her fire extinguisher repairer to notify them regarding her pancreatitis and also hemoglobin A1c of 8.4. Unless something changes clinically and she develops symptoms of acute calculous cholecystitis, I would advise getting her fire extinguisher repairer's involved before recommending cholecystectomy. Time Spent With Patient Time: Total time managing care of this patient today ____ minutes. Quality Stroke Does the patient have a stroke diagnosis?: No VTE Prior VTE?: No VTE Risk Level:: Medical - moderate - high VTE Device Contraindication: Treatment Not Indicated VTE Drug Contraindication: N/A - Med Ordered
--- NOTE | 2022-05-15 15:26 | P.PNIM_ITS ---
Subjective Subjective Date of Service: 05/15/22 Interval History: ?acute pancreatitis, leukocytosis. Review of Systems Patient says that abdominal pain is somewhat better than yesterday, nausea improved, denies any chest pain or shortness of breath or no fevers Physical Exam Vital Signs: Vital Signs: Last Vital Signs Temp 99.0 F 05/15/22 15:13 Pulse 85 05/15/22 15:13 Resp 15 05/15/22 15:13 BP 166/74 H 05/15/22 15:13 Pulse Ox 94 05/15/22 15:13 O2 Del Method 05/15/22 15:13 BMI result Body Mass Index 34.7 Appearance: Alert.? Oriented X3.? abd pain cvs: rrr, [id number] res: clear to auscultation ,no rhonchii or wheezing abd: no rebound or guarding, most pain epigastric somewhat improving, bs present. ext pulses present , no cyanosis . neuro: axo3 , nonfocal. Objective Data Active Medications Acetaminophen (Acetaminophen 325 Mg Tablet) 650 mg PO Q6H PRN PRN Reason: Pain, Mild (Pain Scale 1-3) Last Admin: 05/14/22 20:22 Dose: 650 mg Documented By: ANTOINETTE Amlodipine Besylate (Amlodipine Besylate 5 Mg Tablet) 5 mg PO DAILY [facility]; Protocol Last Admin: 05/15/22 08:33 Dose: 5 mg Documented By: IRAJ Aspirin (Aspirin 81 Mg Tab.Chew) 81 mg PO DAILY [facility] Last Admin: 05/15/22 08:33 Dose: 81 mg Documented By: IRAJ Atorvastatin Calcium (Atorvastatin Calcium 80 Mg Tablet) 80 mg PO BEDTIME [facility] Last Admin: 05/14/22 20:22 Dose: 80 mg Documented By: ANTOINETTE Dextrose (Dextrose 50 % 25 Gm/50 Ml Syringe) 25 gm IVPUSH Q15M PRN; Protocol PRN Reason: per Hypoglycemia Standing Ord. Enoxaparin Sodium (Enoxaparin Sodium 40 Mg/0.4 Ml Syringe) 40 mg SUBCUT BEDTIME [facility] Last Admin: 05/14/22 21:02 Dose: 40 mg Documented By: ANTOINETTE Glucose (Glucose Gel 15 Gm Gel..Gram.) 15 gm PO Q15M PRN; Protocol PRN Reason: per Hypoglycemia Standing Ord. Hydromorphone HCl (Hydromorphone Hcl 0.5 Mg/0.5 Ml Syringe) 0.5 mg IVPUSH Q4H PRN; Protocol PRN Reason: Pain, Severe (Pain Scale 7-10) Last Admin: 05/15/22 08:33 Dose: 0.5 mg Documented By: IRAJ Hydroxyzine HCl (Hydroxyzine Hcl 10 Mg Tablet) 10 mg PO BEDTIME [facility] Last Admin: 05/14/22 20:22 Dose: 10 mg Documented By: ANTOINETTE Hydroxyzine HCl (Hydroxyzine Hcl 25 Mg Tablet) 25 mg PO Q6H PRN PRN Reason: anxiety/restlessness Piperacillin Sod/Tazobactam (Sod 3.375 gm/ Sodium Chloride) 50 mls @ 100 mls/hr IV Q6H [facility] Last Admin: 05/15/22 14:29 Dose: 100 mls/hr Documented By: IRAJ Metronidazole (Flagyl) 500 mg in 100 mls @ 100 mls/hr IV Q8H [facility] Last Infusion: 05/15/22 11:44 Dose: 0 mls/hr Documented By: IRAJ Lactated Ringer's (Lr) 1,000 mls @ 150 mls/hr IVCONT .Q6H40M [facility] Last Admin: 05/15/22 11:42 Dose: 150 mls/hr Documented By: IRAJ Insulin Human Lispro (Insulin Lispro 100 Unit/Ml 3 Ml Vial) 0 unit SUBCUT QIDACHS [facility]; Protocol Last Admin: 05/15/22 11:43 Dose: 2 unit Documented By: IRAJ Metoprolol Tartrate (Metoprolol Tartrate 50 Mg Tablet) 50 mg PO BID [facility]; Protocol Last Admin: 05/15/22 08:33 Dose: 50 mg Documented By: IRAJ Morphine Sulfate (Morphine Sulfate 4 Mg/Ml Cartridge) 4 mg IVPUSH Q4H PRN; Protocol PRN Reason: Pain, Moderate (Pain Scale 4-6 Last Admin: 05/13/22 23:52 Dose: 4 mg Documented By: ANGÉLICA Ondansetron HCl (Ondansetron Hcl 4 Mg/2 Ml Vial) 4 mg IVPUSH Q8H PRN PRN Reason: Nausea and Vomiting Last Admin: 05/13/22 01:52 Dose: 4 mg Documented By: INDIGO Pantoprazole Sodium (Pantoprazole Sodium 40 Mg/10 Ml Vial) 40 mg IVPUSH BID@0630,1630 MAXIM Last Admin: 05/15/22 05:53 Dose: 40 mg Documented By: ANTOINETTE Labs 05/15/22 08:01 05/15/22 08:01 Labs: Laboratory Results - last 24 hr 05/14/22 05/14/22 05/15/22 15:30 19:43 07:31 MCV MCH MCHC RDW Plt Count MPV Absolute Nucleated RBC Nucleated RBC % (auto) Anion Gap Estim Creat Clear Calc Estimated GFR POC Glucose 331 H 168 H 114 Random Glucose Calcium 05/15/22 05/15/22 05/15/22 08:01 08:01 08:22 MCV 70.7 L MCH 22.2 L MCHC 31.4 RDW 20.6 H Plt Count 266 MPV 10.6 Absolute Nucleated RBC 0.000 Nucleated RBC % (auto) 0.0 Anion Gap 17 Estim Creat Clear Calc 69.1 Estimated GFR > 60 POC Glucose 165 H Random Glucose 108 Calcium 7.9 L D 05/15/22 11:13 MCV MCH MCHC RDW Plt Count MPV Absolute Nucleated RBC Nucleated RBC % (auto) Anion Gap Estim Creat Clear Calc Estimated GFR POC Glucose 159 H Random Glucose Calcium Microbiology Microbiology Results: Microbiology 05/12/22 20:21 Blood Culture - Preliminary Blood - Venous No growth after 48 hours. 05/12/22 20:21 Blood Culture - Preliminary Blood - Venous No growth after 48 hours. Assessment and Plan (1) Metabolic acidosis: Status: Acute (2) Sepsis: Status: Acute (3) Acute pancreatitis: Status: Acute (4) Overweight: Status: Acute Plan 66-year-old female with past medical history of diabetes presents to the hospital with complaints of abdominal pain found to have acute pancreatitis #? acute pancreatitis-? likely gallstone pancreatitis vs 2/2 medication induced in the setting of trulicity -? has elevated LFTs,? ultrasound of the abdomen shows gallstones with no acute cholecystitis -? evidence of sepsis lactic acid improved , leukocytosis trending up but blood culture at @ 24 hour negative, patient's abdominal pain is improving tachycardia multifactorial-pain,anxiety ,volume depletion,also was off home metoprolol mrcp-edema of the mid pancreas as well as extensive peripancreatic and retroperitoneal fluid and fat stranding consistent with acute interstitial pancreatitis. No biliary ductal dilatation. There are gallstones but no filling defects in the common bile duct to suggest choledocholithiasis. Gi and sugery input noted -continue IV antibiotics, ppi,clear liquis, adjusted IV hydration,started metoprolol,pain control( dilaudid ,morphine). #? sepsis-? possibly secondary to acute pancreatitis versus acute cholecystitis less likely abd us-less likely acute cholecystitis tachycardia resolved , leukocytosis trendin up -?if all realted to pancreatitis/pain. -? received IV fluids -? improved her symptoms - ? IV antibiotics -? follow cultures possible mild metabolic acidosis: sec to dehydration/decreased po intake ,lactic acidosis improved with hydration, as well as hyponatremia improved with hydration. #? lactic acidosis: improved with hydration. #? diabetes -? low-dose sinus scale insulin - hold po meds -? consider discontinuing Trulicity on discharge given acute pancreatitis started on clear liquid diet. #? hypertension -? elevated -? asymptomatic -? unable to take p.o. -? added metoprolol back ?DVT prophylaxis:? Lovenox ongoing hospitlisation need:acute pancreatitis-needs IV hydration, pain medications, need diet adjustment if toleerates . Time Spent With Patient Time: Total time managing care of this patient today ____ minutes. Quality Stroke Does the patient have a stroke diagnosis?: No VTE Prior VTE?: No VTE Risk Level:: Medical - moderate - high VTE Device Contraindication: Treatment Not Indicated VTE Drug Contraindication: N/A - Med Ordered
[2022-05-15 16:04] LABS: Glucose, Whole Blood 171 mg/dL (60-115)
[2022-05-15 20:20] LABS: Glucose, Whole Blood 253 mg/dL (60-115)
[2022-05-15] MEDS: Atorvastatin Calcium 80 MG TABLET PO (20:56)
[2022-05-15] MEDS: hydrOXYzine HCL 10 MG TABLET PO (20:56)
[2022-05-15] MEDS: Enoxaparin Sodium 40 MG/0.4 ML SYRINGE SUBCUT (20:56)
[2022-05-15] MEDS: Morphine Sulfate 4 MG/ML CARTRIDGE IVPUSH (21:06)
[2022-05-15] MEDS: Lactated Ringers 1,000 ML 80 ML IVCONT (21:55)
[2022-05-16] VITALS (7 sets, daily range): BP systolic 131–158; BP diastolic 58–80; PULSE 71–96; RESP 15–18; TEMP 36.4–37.4; O2SAT 94–98
[2022-05-16] MEDS: Piperacillin Sodium/Tazobactam 3.375 GM in 0.9 % Sodium Chloride 50 ML IV ×2 (02:25→08:09)
[2022-05-16] MEDS: Pantoprazole Sodium 40 MG/10 ML VIAL IVPUSH ×2 (05:38→16:52)
[2022-05-16 06:18] LABS: Hematocrit 29.6 % (37.0-47.0); Hemoglobin 9.3 g/dl (12.0-16.0); Mean Corpuscular HGB Conc 31.4 g/dl (31.0-35.0); Mean Corpuscular Hemoglobin 22.1 pg (27.0-33.0); Mean Corpuscular Volume 70.5 fL (80.0-98.0); Mean Platelet Volume 10.8 fL (9.4-12.3); Platelet Count 267 X10*3/uL (160-400); Red Cell Distribution Width 20.2 % (11.0-16.0); White Blood Count 15.4 X10*3/uL (4.8-10.8)
[2022-05-16 06:42] LABS: Anion Gap 15 (12-20); Blood Urea Nitrogen 18 mg/dL (9-16); Calcium 7.6 mg/dL (8.4-10.2); Carbon Dioxide 20 mmol/L (22-29); Chloride 106 mmol/L (96-108); Estimated Glomerular Filt Rate > 60; Glucose Random 83 mg/dL (60-115); Potassium 3.2 mmol/L (3.3-5.1); Sodium 138 mmol/L (135-145)
--- NOTE | 2022-05-16 07:37 | PM.PNGS ---
Subjective Subjective Date of Service: 05/16/22 Patient reports: feels better, tolerating liquids well, bowel movement and diarrhea Interval history: The patient denies any significant abdominal pain at this point but notes that she has been having significant diarrhea since yesterday. She denies noting any blood but states that the nurses advised her to talk to 1 of the doctors. She denies any previous issues with diarrhea. She is tolerating her full liquid diet. The patient otherwise denies any headache, neurologic symptoms, chest pain or difficulty breathing. Physical Exam Vital Signs: Vital Signs: Last Vital Signs Temp 98.9 F 05/16/22 03:58 Pulse 92 05/16/22 03:58 Resp 15 05/16/22 03:58 BP 131/58 L 05/16/22 03:58 Pulse Ox 95 05/16/22 03:58 O2 Del Method 05/16/22 03:58 BMI result Body Mass Index 34.7 Abdomen is obese but benign. The tenderness is completely resolved and there was no peritoneal sign Patient is nontoxic Objective Data Active Medications Acetaminophen (Acetaminophen 325 Mg Tablet) 650 mg PO Q6H PRN PRN Reason: Pain, Mild (Pain Scale 1-3) Last Admin: 05/14/22 20:22 Dose: 650 mg Documented By: ANTOINETTE Amlodipine Besylate (Amlodipine Besylate 5 Mg Tablet) 5 mg PO DAILY [facility]; Protocol Last Admin: 05/15/22 08:33 Dose: 5 mg Documented By: IRAJ Aspirin (Aspirin 81 Mg Tab.Chew) 81 mg PO DAILY [facility] Last Admin: 05/15/22 08:33 Dose: 81 mg Documented By: IRAJ Atorvastatin Calcium (Atorvastatin Calcium 80 Mg Tablet) 80 mg PO BEDTIME [facility] Last Admin: 05/15/22 20:56 Dose: 80 mg Documented By: DENIS Dextrose (Dextrose 50 % 25 Gm/50 Ml Syringe) 25 gm IVPUSH Q15M PRN; Protocol PRN Reason: per Hypoglycemia Standing Ord. Enoxaparin Sodium (Enoxaparin Sodium 40 Mg/0.4 Ml Syringe) 40 mg SUBCUT BEDTIME [facility] Last Admin: 05/15/22 20:56 Dose: 40 mg Documented By: YARELYASY Glucose (Glucose Gel 15 Gm Gel..Gram.) 15 gm PO Q15M PRN; Protocol PRN Reason: per Hypoglycemia Standing Ord. Hydromorphone HCl (Hydromorphone Hcl 0.5 Mg/0.5 Ml Syringe) 0.5 mg IVPUSH Q4H PRN; Protocol PRN Reason: Pain, Severe (Pain Scale 7-10) Last Admin: 05/15/22 08:33 Dose: 0.5 mg Documented By: IRAJ Hydroxyzine HCl (Hydroxyzine Hcl 10 Mg Tablet) 10 mg PO BEDTIME [facility] Last Admin: 05/15/22 20:56 Dose: 10 mg Documented By: DENIS Hydroxyzine HCl (Hydroxyzine Hcl 25 Mg Tablet) 25 mg PO Q6H PRN PRN Reason: anxiety/restlessness Piperacillin Sod/Tazobactam (Sod 3.375 gm/ Sodium Chloride) 50 mls @ 100 mls/hr IV Q6H [facility] Last Infusion: 05/16/22 03:06 Dose: 100 mls/hr Documented By: SYLVIA Metronidazole (Flagyl) 500 mg in 100 mls @ 100 mls/hr IV Q8H [facility] Last Infusion: 05/16/22 00:35 Dose: 0 mls/hr Documented By: DENIS Lactated Ringer's (Lr) 1,000 mls @ 80 mls/hr IVCONT .[id number] [facility] Last Infusion: 05/16/22 00:35 Dose: 80 mls/hr Documented By: DENIS Insulin Human Lispro (Insulin Lispro 100 Unit/Ml 3 Ml Vial) 0 unit SUBCUT QIDACHS [facility]; Protocol Last Admin: 05/15/22 20:55 Dose: 6 unit Documented By: DENIS Lidocaine (Lidocaine 4 % Patch Adh..Patch) 1 patch TRANSDERMA DAILY [facility]; Protocol Metoprolol Tartrate (Metoprolol Tartrate 50 Mg Tablet) 50 mg PO BID [facility]; Protocol Last Admin: 05/15/22 20:56 Dose: 50 mg Documented By: DENIS Morphine Sulfate (Morphine Sulfate 4 Mg/Ml Cartridge) 4 mg IVPUSH Q4H PRN; Protocol PRN Reason: Pain, Moderate (Pain Scale 4-6 Last Admin: 05/15/22 21:06 Dose: 4 mg Documented By: DENIS Ondansetron HCl (Ondansetron Hcl 4 Mg/2 Ml Vial) 4 mg IVPUSH Q8H PRN PRN Reason: Nausea and Vomiting Last Admin: 05/13/22 01:52 Dose: 4 mg Documented By: INDIGO Pantoprazole Sodium (Pantoprazole Sodium 40 Mg/10 Ml Vial) 40 mg IVPUSH BID@0630,1630 MAXIM Last Admin: 05/16/22 05:38 Dose: 40 mg Documented By: SYLVIA Potassium Chloride (Potassium Chloride Packet 20 Meq Packet) 40 meq PO ONCE ONE Stop: 05/16/22 07:37 Labs 05/16/22 05:34 05/16/22 05:34 Labs: Laboratory Results - last 24 hr 05/15/22 05/15/22 05/15/22 07:31 08:01 08:01 MCV 70.7 L MCH 22.2 L MCHC 31.4 RDW 20.6 H Plt Count 266 MPV 10.6 Absolute Nucleated RBC 0.000 Nucleated RBC % (auto) 0.0 Anion Gap 17 Estim Creat Clear Calc 69.1 Estimated GFR > 60 POC Glucose 114 Random Glucose 108 Calcium 7.9 L D Total Bilirubin AST ALT Alkaline Phosphatase Total Protein Albumin 05/15/22 05/15/22 05/15/22 08:22 11:13 16:01 MCV MCH MCHC RDW Plt Count MPV Absolute Nucleated RBC Nucleated RBC % (auto) Anion Gap Estim Creat Clear Calc Estimated GFR POC Glucose 165 H 159 H 171 H Random Glucose Calcium Total Bilirubin AST ALT Alkaline Phosphatase Total Protein Albumin 05/15/22 05/16/22 05/16/22 20:15 05:34 05:34 MCV 70.5 L MCH 22.1 L MCHC 31.4 RDW 20.2 H Plt Count 267 MPV 10.8 Absolute Nucleated RBC 0.000 Nucleated RBC % (auto) 0.0 Anion Gap 15 Estim Creat Clear Calc 76.0 Estimated GFR > 60 POC Glucose 253 H Random Glucose 83 Calcium 7.6 L Total Bilirubin AST ALT Alkaline Phosphatase Total Protein Albumin 05/16/22 05:34 MCV MCH MCHC RDW Plt Count MPV Absolute Nucleated RBC Nucleated RBC % (auto) Anion Gap 14 Estim Creat Clear Calc 73.5 Estimated GFR > 60 POC Glucose Random Glucose 83 Calcium 7.7 L Total Bilirubin 0.6 AST 35 H ALT 30 Alkaline Phosphatase 103 Total Protein 3.9 L Albumin 2.2 L Procedures Date of Service Date of Service: 05/16/22 Progress Note: A&P Assessment and plan (1) Acute pancreatitis: Status: Acute (2) Morbid (severe) obesity due to excess calories: Status: Acute (3) Diabetes: Status: Acute (4) Hyperlipidemia: Status: Acute (5) S/P triple vessel bypass: Status: Acute (6) Umbilical hernia: Status: Acute Plan I again reviewed with the patient that she is on 2 GLP1 medications that are associated with pancreatitis as a side effect. She also has gallstones which could have caused gallstone pancreatitis, however her total bilirubin did not elevate as would commonly occur with choledocholithiasis, but this is not pathognomonic. As noted previously, the patient is poorly controlled type 2 diabetes and does not have acute calculous cholecystitis. Given her poorly controlled diabetes and 2 medications that can cause pancreatitis, I would recommend that we continue to monitor the patient, get her back to her scientist/engineer for input in her care and then discuss cholecystectomy on an outpatient basis. Explained again to the patient that she may have recurring pancreatitis in spite of cholecystectomy if it is related to her 2 diabetes medications. I have provided the patient with my office card and if she is discharged over the weekend, she is instructed to call me if she wishes, however she notes that her scientist/engineer is at [facility] and is considering evaluation or 2nd opinion from 1 of the other surgeons there. Regardless, I explained the importance of follow-up with the surgeons and she may need cholecystectomy. Her questions seemed to be satisfactorily answered. If any issues occur over the weekend, please call the surgeon on-call. Can advance her diet as tolerated and monitor labs. Her acute renal injury is improved but she still has a leukocytosis, low potassium in the new complaints of diarrhea which are deferred to the hospitalist. Time Spent With Patient Time: Total time managing care of this patient today ____ minutes. Quality Stroke Does the patient have a stroke diagnosis?: No VTE Prior VTE?: No VTE Risk Level:: Medical - moderate - high VTE Device Contraindication: Treatment Not Indicated VTE Drug Contraindication: N/A - Med Ordered
[2022-05-16 07:40] LABS: Glucose, Whole Blood 98 mg/dL (60-115)
[2022-05-16] MEDS: Lidocaine 4 % Patch ADH..PATCH 1 PATCH TRANSDERMA (08:08)
[2022-05-16] MEDS: Metoprolol Tartrate 50 MG TABLET PO ×2 (08:09→20:06)
[2022-05-16] MEDS: amLODIPine Besylate 5 MG TABLET PO (08:09)
[2022-05-16] MEDS: Aspirin 81 MG TAB.CHEW PO (08:09)
[2022-05-16] MEDS: metroNIDAZOLE/NS 500 MG/100 ML PIGGYBACK 100 MG IV (08:10)
[2022-05-16] MEDS: Potassium Chloride Packet 20 MEQ PACKET 40 MEQ PO (08:10)
[2022-05-16 08:11] LABS: Alanine Aminotransferase 34 U/L (0-31); Albumin Level 2.3 g/dL (3.5-5.0); Alkaline Phosphatase 103 U/L (39-117); Anion Gap 15 (12-20); Aspartate Amino Transferase 36 U/L (5-31); Bilirubin Total 0.6 mg/dL (0.0-1.0); Blood Urea Nitrogen 18 mg/dL (9-16); Calcium 7.6 mg/dL (8.4-10.2); Carbon Dioxide 20 mmol/L (22-29); Chloride 107 mmol/L (96-108); Creatinine Clr Calc Pharmacy 71.2; Estimated Glomerular Filt Rate > 60; Glucose Random 83 mg/dL (60-115); Magnesium 1.6 mg/dL (1.6-2.6); Sodium 139 mmol/L (135-145)
[2022-05-16 11:55] LABS: Glucose, Whole Blood 200 mg/dL (60-115)
--- NOTE | 2022-05-16 11:59 | HO.PM.IMPN ---
Subjective Subjective Date of Service: 05/16/22 Interval History: acute pancreatitis, leukocytosis. Review of Systems abdominal pain is similar to yesterday, nausea improved, has diarrahae, denies any chest pain or shortness of breath or no fevers Physical Exam Vital Signs: Vital Signs: Last Vital Signs Temp 98.1 F 05/16/22 11:38 Pulse 71 05/16/22 11:21 Resp 18 05/16/22 11:38 BP 146/80 H 05/16/22 11:38 Pulse Ox 98 05/16/22 11:38 O2 Del Method 05/16/22 11:38 BMI result Body Mass Index 34.7 ?Appearance: Alert.? Oriented X3.? abd pain cvs: rrr, [id number] res: clear to auscultation ,no rhonchii or wheezing abd: no rebound or guarding, most pain epigastric somewhat improving, bs present. ext pulses present , no cyanosis . neuro: axo3 , nonfocal. Objective Data Active Medications Acetaminophen (Acetaminophen 325 Mg Tablet) 650 mg PO Q6H PRN PRN Reason: Pain, Mild (Pain Scale 1-3) Last Admin: 05/14/22 20:22 Dose: 650 mg Documented By: ANTOINETTE Amlodipine Besylate (Amlodipine Besylate 5 Mg Tablet) 5 mg PO DAILY [facility]; Protocol Last Admin: 05/16/22 08:09 Dose: 5 mg Documented By: NAHUM Aspirin (Aspirin 81 Mg Tab.Chew) 81 mg PO DAILY [facility] Last Admin: 05/16/22 08:09 Dose: 81 mg Documented By: NAHUM Atorvastatin Calcium (Atorvastatin Calcium 80 Mg Tablet) 80 mg PO BEDTIME [facility] Last Admin: 05/15/22 20:56 Dose: 80 mg Documented By: DENIS Dextrose (Dextrose 50 % 25 Gm/50 Ml Syringe) 25 gm IVPUSH Q15M PRN; Protocol PRN Reason: per Hypoglycemia Standing Ord. Enoxaparin Sodium (Enoxaparin Sodium 40 Mg/0.4 Ml Syringe) 40 mg SUBCUT BEDTIME [facility] Last Admin: 05/15/22 20:56 Dose: 40 mg Documented By: YARELYASY Glucose (Glucose Gel 15 Gm Gel..Gram.) 15 gm PO Q15M PRN; Protocol PRN Reason: per Hypoglycemia Standing Ord. Hydromorphone HCl (Hydromorphone Hcl 0.5 Mg/0.5 Ml Syringe) 0.5 mg IVPUSH Q4H PRN; Protocol PRN Reason: Pain, Severe (Pain Scale 7-10) Last Admin: 05/15/22 08:33 Dose: 0.5 mg Documented By: IRAJ Hydroxyzine HCl (Hydroxyzine Hcl 10 Mg Tablet) 10 mg PO BEDTIME [facility] Last Admin: 05/15/22 20:56 Dose: 10 mg Documented By: DENIS Hydroxyzine HCl (Hydroxyzine Hcl 25 Mg Tablet) 25 mg PO Q6H PRN PRN Reason: anxiety/restlessness Piperacillin Sod/Tazobactam (Sod 3.375 gm/ Sodium Chloride) 50 mls @ 100 mls/hr IV Q6H [facility] Last Infusion: 05/16/22 08:42 Dose: 0 mls/hr Documented By: NAHUM Metronidazole (Flagyl) 500 mg in 100 mls @ 100 mls/hr IV Q8H [facility] Last Infusion: 05/16/22 09:40 Dose: 0 mls/hr Documented By: NAHUM Lactated Ringer's (Lr) 1,000 mls @ 80 mls/hr IVCONT .[id number] [facility] Last Infusion: 05/16/22 09:40 Dose: 80 mls/hr Documented By: NAHUM Insulin Glargine (Insulin Glargine,Hum.Rec.Anlog 100 Unit/Ml 10 Ml Vial) 20 unit SUBCUT BEDTIME [facility] Insulin Human Lispro (Insulin Lispro 100 Unit/Ml 3 Ml Vial) 0 unit SUBCUT QIDACHS [facility]; Protocol Last Admin: 05/16/22 07:57 Dose: Not Given Documented By: NAHUM Non-Admin Reason: No Insulin Coverage Lidocaine (Lidocaine 4 % Patch Adh..Patch) 1 patch TRANSDERMA DAILY [facility]; Protocol Last Admin: 05/16/22 08:08 Dose: 1 patch Documented By: NAHUM Loperamide HCl (Loperamide Hcl 2 Mg Capsule) 2 mg PO Q4H PRN PRN Reason: DIARRAHE Metoprolol Tartrate (Metoprolol Tartrate 50 Mg Tablet) 50 mg PO BID [facility]; Protocol Last Admin: 05/16/22 08:09 Dose: 50 mg Documented By: HO.LYSZ Morphine Sulfate (Morphine Sulfate 4 Mg/Ml Cartridge) 4 mg IVPUSH Q4H PRN; Protocol PRN Reason: Pain, Moderate (Pain Scale 4-6 Last Admin: 05/15/22 21:06 Dose: 4 mg Documented By: DENIS Ondansetron HCl (Ondansetron Hcl 4 Mg/2 Ml Vial) 4 mg IVPUSH Q8H PRN PRN Reason: Nausea and Vomiting Last Admin: 05/13/22 01:52 Dose: 4 mg Documented By: INDIGO Pantoprazole Sodium (Pantoprazole Sodium 40 Mg/10 Ml Vial) 40 mg IVPUSH BID@0630,1630 MAXIM Last Admin: 05/16/22 05:38 Dose: 40 mg Documented By: JANICELA Labs 05/16/22 05:34 05/16/22 05:34 Labs: Laboratory Results - last 24 hr 05/15/22 05/15/22 05/16/22 16:01 20:15 05:34 MCV 70.5 L MCH 22.1 L MCHC 31.4 RDW 20.2 H Plt Count 267 MPV 10.8 Absolute Nucleated RBC 0.000 Nucleated RBC % (auto) 0.0 Anion Gap Estim Creat Clear Calc Estimated GFR POC Glucose 171 H 253 H Random Glucose Calcium Magnesium Total Bilirubin AST ALT Alkaline Phosphatase Total Protein Albumin 05/16/22 05/16/22 05/16/22 05:34 05:34 07:35 MCV MCH MCHC RDW Plt Count MPV Absolute Nucleated RBC Nucleated RBC % (auto) Anion Gap 15 15 Estim Creat Clear Calc 76.0 71.2 Estimated GFR > 60 > 60 POC Glucose 98 Random Glucose 83 83 Calcium 7.6 L 7.6 L Magnesium 1.6 Total Bilirubin 0.6 AST 36 H ALT 34 H Alkaline Phosphatase 103 Total Protein 4.0 L Albumin 2.3 L 05/16/22 11:40 MCV MCH MCHC RDW Plt Count MPV Absolute Nucleated RBC Nucleated RBC % (auto) Anion Gap Estim Creat Clear Calc Estimated GFR POC Glucose 200 H Random Glucose Calcium Magnesium Total Bilirubin AST ALT Alkaline Phosphatase Total Protein Albumin Assessment and Plan (1) Metabolic acidosis: Status: Acute (2) Sepsis: Status: Acute (3) Acute pancreatitis: Status: Acute (4) Overweight: Status: Acute (5) Diarrhea: Status: Acute (6) Hypokalemia: Status: Acute Plan 66-year-old female with past medical history of diabetes presents to the hospital with complaints of abdominal pain found to have acute pancreatitis #? acute pancreatitis-? likely gallstone pancreatitis vs 2/2 medication induced in the setting of trulicity -? has elevated LFTs,? ultrasound of the abdomen shows gallstones with no acute cholecystitis -? evidence of sepsis lactic acid improved , leukocytosis trending up but blood culture at @ 48 hour negative, patient's abdominal pain is improving tachycardia multifactorial-pain,anxiety ,volume depletion,also was off home metoprolol mrcp-edema of the mid pancreas as well as extensive peripancreatic and retroperitoneal fluid and fat stranding consistent with acute interstitial pancreatitis. No biliary ductal dilatation. There are gallstones but no filling defects in the common bile duct to suggest choledocholithiasis. Gi and sugery input noted -continue IV antibiotics, ppi,clear liquis, adjusted IV hydration,started metoprolol,pain control( dilaudid ,morphine). #? sepsis-? possibly secondary to acute pancreatitis versus acute cholecystitis less likely abd us-less likely acute cholecystitis tachycardia resolved , leukocytosis trendin down -?if all realted to pancreatitis/pain. on IV fluids -? improved her symptoms - ? IV antibiotics possible mild metabolic acidosis/lactic acidosis : sec to dehydration/decreased po intake ,lactic acidosis improved with hydration, as well as hyponatremia improved with hydration. #? diabetes -? low-dose sinus scale insulin - hold po meds may switch to lantus . -? hold Trulicity on discharge given acute pancreatitis started full liquid diet. #? hypertension -? elevated -? asymptomatic -? unable to take p.o. -? added metoprolol back ?DVT prophylaxis:? Lovenox ongoing hospitlisation need:acute pancreatitis-needs IV hydration, pain medications, need diet adjustment if toleerates . Time Spent With Patient Time: Total time managing care of this patient today ____ minutes. Quality Stroke Does the patient have a stroke diagnosis?: No VTE Prior VTE?: No VTE Risk Level:: Medical - moderate - high VTE Device Contraindication: Treatment Not Indicated VTE Drug Contraindication: N/A - Med Ordered
[2022-05-16] MEDS: Insulin Lispro 100 UNIT/ML 3 ML VIAL SUBCUT ×3 (12:22→20:06)
[2022-05-16] MEDS: Lactated Ringers 1,000 ML 80 ML IVCONT (13:46)
[2022-05-16 16:19] LABS: Glucose, Whole Blood 250 mg/dL (60-115)
[2022-05-16] MEDS: Loperamide HCl 2 MG CAPSULE PO (17:28)
[2022-05-16 20:02] LABS: Glucose, Whole Blood 244 mg/dL (60-115)
[2022-05-16] MEDS: Enoxaparin Sodium 40 MG/0.4 ML SYRINGE SUBCUT (20:05)
[2022-05-16] MEDS: Insulin Glargine,Hum.rec.anlog 100 UNIT/ML 10 ML VIAL 20 UNIT SUBCUT (20:06)
[2022-05-16] MEDS: Atorvastatin Calcium 80 MG TABLET PO (20:06)
[2022-05-16] MEDS: hydrOXYzine HCL 10 MG TABLET PO (20:06)
[2022-05-17] MEDS: Lactated Ringers 1,000 ML 80 ML IVCONT (01:10)
[2022-05-17 03:02] VITALS: BP 155/72; PULSE 92; RESP 18; TEMP 37.2; O2SAT 97
[2022-05-17] MEDS: Pantoprazole Sodium 40 MG/10 ML VIAL IVPUSH (05:45)
[2022-05-17 06:00] VITALS: BMI 36.7
[2022-05-17 07:15] VITALS: BP 124/58; PULSE 99; RESP 12; TEMP 36.8; O2SAT 95
[2022-05-17 07:36] LABS: Glucose, Whole Blood 137 mg/dL (60-115)
[2022-05-17] MEDS: Lidocaine 4 % Patch ADH..PATCH 1 PATCH TRANSDERMA (09:20)
[2022-05-17] MEDS: Metoprolol Tartrate 50 MG TABLET PO (09:21)
[2022-05-17] MEDS: amLODIPine Besylate 5 MG TABLET PO (09:21)
[2022-05-17] MEDS: Aspirin 81 MG TAB.CHEW PO (09:21)
[2022-05-17 10:01] LABS: Anion Gap 16 (12-20); Blood Urea Nitrogen 13 mg/dL (9-16); Calcium 7.9 mg/dL (8.4-10.2); Carbon Dioxide 19 mmol/L (22-29); Chloride 105 mmol/L (96-108); Creatinine Clr Calc Pharmacy 66.4; Estimated Glomerular Filt Rate > 60; Glucose Random 271 mg/dL (60-115); Potassium 3.8 mmol/L (3.3-5.1); Sodium 136 mmol/L (135-145)
[2022-05-17 11:17] LABS: Campylobacter Not Detected (Not Detect.); Plesiomonas shigelloides Not Detected (Not Detect.)
[2022-05-17 11:18] LABS: Adenovirus F 40/41 Not Detected (Not Detect.); Astrovirus Not Detected (Not Detect.); Cryptosporidium Not Detected (Not Detect.); Cyclospora cayetanensis Not Detected (Not Detect.); E. coli EAEC Not Detected (Not Detect.); E. coli EPEC Not Detected (Not Detect.); E. coli ETEC Not Detected (Not Detect.); E. coli STEC Not Detected (Not Detect.); Entamoeba histolytica Not Detected (Not Detect.); Giardia lamblia Not Detected (Not Detect.); Norovirus GI/GII Not Detected (Not Detect.); Rotavirus A Not Detected (Not Detect.); Salmonella Not Detected (Not Detect.); Sapovirus Not Detected (Not Detect.); Shigella sp./EIEC Not Detected (Not Detect.); Vibrio Not Detected (Not Detect.); Vibrio Cholerae Not Detected (Not Detect.); Yersinia enterocolitica Not Detected (Not Detect.)
[2022-05-17 11:22] LABS: Glucose, Whole Blood 293 mg/dL (60-115)
--- NOTE | 2022-05-17 11:25 | P.DS_ITS ---
DS: Providers Provider Date of Service: 05/17/22 Date of admission: 05/13/22 00:01 Primary care physician: None Physician Consults: 05/12/22 23:59 Consult to Gastroenterology Routine Consulting Provider: Jean Calude Tidwell Reason for consultation: Pancreatitis Has provider been notified: Yes Consult to General Surgery Routine Consulting Provider: Dylan Uribe Reason for consultation: gallstone pancreatitis Has provider been notified: No DS: Diagnosis Discharge Diagnosis (1) Metabolic acidosis: Status: Acute (2) Sepsis: Status: Acute (3) Acute pancreatitis: Status: Acute (4) Overweight: Status: Acute (5) Diarrhea: Status: Acute (6) Hypokalemia: Status: Acute DS: Summary Hospital Course Hospital Course: 66-year-old female with past medical history of CAD status post CABG, diabetes, HLD, HTN presents to the hospital with complaints of severe abdominal pain.? Patient reports the abdominal pain to be across the abdomen, radiating to the back, the patient woke up at 03:00 with this pain, patient reports the pain is 10/10/severe, constant, associated with nausea vomiting, decreased oral intake due to the nausea, reports no diarrhea constipation, reports similar episodes last month that resolved spontaneously within minutes.? Denies any fever or chills, no chest pain, no shortness of breath, no cough, no urinary symptoms and no lower extremity edema.? No numbness tingling or weakness.? On arrival to the ED patient hemodynamically stable with a heart rate of 117, blood pressure 188/89, respiratory rate of 24 Labs are significant for WBC count of? 22, BUN of 33, lactic acid initially of 7.2 that decrease 2.1, AST of 117, ALT of 104, alk-phos of 251, troponin negative, lipase of more than [address] shows moderate pancreatitis, cholelithiasis, patient underwent abdominal ultrasound that also showed cholelithiasis with no inflammatory change of the gallbladder, ?case was discussed with GI, patient will? undergo MRCP in a.m. Hospital course: 66-year-old female with past medical history of diabetes presents to the hospital with complaints of abdominal pain found to have acute pancreatitis. 1.? acute pancreatitis-?possibly likely gallstone pancreatitis vs possible dm med met sepsis criteria intially Lab and imaging: elevated LFTs,? ultrasound of the abdomen shows Cholelithiasis, with no acute cholecystitis . mrcp:No biliary ductal dilatation. There are gallstones but no filling defects in the common bile duct to suggest choledocholithiasis. and blood cultures sent. Patient was started on continue IV antibiotics, ppi, bowel rest, adjusted? IV hydration,pain control( dilaudid ,morphine): Subsequently patient was improved with supportive care, blood culture neg, leukocytosis trending down, the patient does not seem to have sepsis -I think initial criteria was met because of the pancreatitis related inflammation. Discussed with the GI in detail: Discontinue antibiotics. Patient improved with supportive care and going home. In addition patient's Trulicity and tresiba by on hold due to possibility of contributing to pancreatitis. Patient will be following up with her artificial cherry maker outpatient and surgery for further management and possible elective cholecystectomy outpatient. possible mild metabolic acidosis/lactic acidosis : sec to dehydration/decreased po intake ,lactic acidosis improved with hydration, as well as hyponatremia improved with hydration. Hypokalemia also related to poor oral intake repleted and resolved. Plan: Acute pancreatitis seems to be resolved: Patient need to follow up with endocrinology/says surgery for further management: Currently Trulicity and tresiba by on hold due to possibility of contributing to pancreatitis. Patient was given Lantus prescription instead. Monitor fingersticks out patiently, and follow-up with endocrinology. Monitor renal function and electrolytes also outpatient. Time Spent with Patient Time attestation: Total time managing care of this patient today ____ minutes. Discharge coordination time: Greater than 30 minutes Quality: Safe Use of Opioids Does Pt have an Active Cancer Diagnosis on the Problem List?: No Quality: Stroke Does the patient have a stroke diagnosis?: No Physical Exam Vital Signs: Vital Signs: Last Vital Signs Temp 98.2 F 05/17/22 07:15 Pulse 99 05/17/22 07:15 Resp 12 05/17/22 07:15 BP 124/58 L 05/17/22 07:15 Pulse Ox 95 05/17/22 07:15 O2 Del Method 05/17/22 07:15 BMI result Body Mass Index 36.7 Appearance: Alert.? Oriented X3.? not in distress.? Eyes: Pupils equal, round and reactive to light.? Sclera nonicteric.? ENT: Pharynx normal.? Moist mucous membranes. cvs: rrr, [id number] . res: clear to auscultation ,no rhonchii or wheezing abd: no rebound or guarding ,nt, bs present. ext pulses present , no cyanosis. neuro: axo3 , nonfocal. DS: Data Data Completed and Pending Labs on day of discharge: Laboratory Results - last 24 hr 05/16/22 05/16/22 05/16/22 11:40 16:09 17:06 Sodium Potassium Chloride Carbon Dioxide Anion Gap BUN Creatinine Estim Creat Clear Calc Estimated GFR POC Glucose 200 H 250 H Random Glucose Calcium Stl C. cayetanensis PCR Not Detected Stool Rotavirus A PCR Not Detected Stl Adenov F 40/ PCR Not Detected Stool Astrovirus (PCR) Not Detected Stool Campylobacter PCR Not Detected Stool Cryptosporidium PCR Not Detected Stl Sh Tox Pr E STEC PCR Not Detected Stool E coli O157 PCR Not applicable Stl Enterotoxigenic E PCR Not Detected Stool EPEC (PCR) Not Detected Stool EAEC (PCR) Not Detected Stl E. histolytica PCR Not Detected Stool Giardia Lamblia PCR Not Detected Stl P. shigelloides PCR Not Detected Stool Salmonella PCR Not Detected Stool Sapovirus (PCR) Not Detected Stl Shigella/EIEC PCR Not Detected St Y.enterocolitica PCR Not Detected Stool Vibrio (PCR) Not Detected Stl Vibrio cholerae PCR Not Detected Stl Norovirus GI/GII PCR Not Detected 05/16/22 05/17/22 05/17/22 19:46 07:14 09:05 Sodium 136 Potassium 3.8 D Chloride 105 Carbon Dioxide 19 L Anion Gap 16 BUN 13 Creatinine 0.71 Estim Creat Clear Calc 66.4 Estimated GFR > 60 POC Glucose 244 H 137 H Random Glucose 271 H Calcium 7.9 L Stl C. cayetanensis PCR Stool Rotavirus A PCR Stl Adenov F PCR Stool Astrovirus (PCR) Stool Campylobacter PCR Stool Cryptosporidium PCR Stl Sh Tox Pr E STEC PCR Stool E coli O157 PCR Stl Enterotoxigenic E PCR Stool EPEC (PCR) Stool EAEC (PCR) Stl E. histolytica PCR Stool Giardia Lamblia PCR Stl P. shigelloides PCR Stool Salmonella PCR Stool Sapovirus (PCR) Stl Shigella/EIEC PCR St Y.enterocolitica PCR Stool Vibrio (PCR) Stl Vibrio cholerae PCR Stl Norovirus GI/GII PCR 05/17/22 11:18 Sodium Potassium Chloride Carbon Dioxide Anion Gap BUN Creatinine Estim Creat Clear Calc Estimated GFR POC Glucose 293 H Random Glucose Calcium Stl C. cayetanensis PCR Stool Rotavirus A PCR Stl Adenov F 40/41 PCR Stool Astrovirus (PCR) Stool Campylobacter PCR Stool Cryptosporidium PCR Stl Sh Tox Pr E STEC PCR Stool E coli O157 PCR Stl Enterotoxigenic E PCR Stool EPEC (PCR) Stool EAEC (PCR) Stl E. histolytica PCR Stool Giardia Lamblia PCR Stl P. shigelloides PCR Stool Salmonella PCR Stool Sapovirus (PCR) Stl Shigella/EIEC PCR St Y.enterocolitica PCR Stool Vibrio (PCR) Stl Vibrio cholerae PCR Stl Norovirus GI/GII PCR Preliminary micro results at discharge 05/12/22 20:21 Blood Culture - Preliminary Blood - Venous No growth after 48 hours. 05/12/22 20:21 Blood Culture - Preliminary Blood - Venous No growth after 48 hours. Imaging Chest x-ray: Radiologist's impression: ITS Impressions Abdomen/Pelvis CT 05/12/22 21:00 IMPRESSION: 1. Moderate pancreatitis. 2. Cholelithiasis. Fleischner guidelines were followed. Chest X-Ray 05/12/22 23:15 IMPRESSION: New left lower lobe pneumonia. Abdomen Ultrasound 05/12/22 23:34 IMPRESSION: Cholelithiasis. No inflammatory changes of the gallbladder. Pancreas not evaluated due to bowel gas. Cholangiopancreatography MRI 05/13/22 08:23 IMPRESSION: There is edema of the mid pancreas as well as extensive peripancreatic and retroperitoneal fluid and fat stranding consistent with acute interstitial pancreatitis. Lack of IV contrast limits evaluation to assess for pancreatic necrosis. No biliary ductal dilatation. There are gallstones but no filling defects in the common bile duct to suggest choledocholithiasis. Venous Duplex 05/13/22 20:10 IMPRESSION: No DVT demonstrated in the left upper extremity. Discharge Plan Discharge Anticipated Discharge Date/Time: 05/17/22 10:55 Patient Disposition: Home, Self-Care Discharge Diagnosis: dm with hyperglycemia , leukocytosis, hypokalemia. Referrals: Physician,None [Primary Care Provider] - 1 Week Discharge Medications: New insulin glargine [Lantus Solostar U-100 Insulin] 100 unit/mL (3 mL) insulin pen 20 unit subcut QPM Qty: 15 0RF Continued atorvastatin 80 mg tablet 1 tab PO BEDTIME enalapril maleate 10 mg tablet 1 tab PO DAILY calcipotriene 0.005 % cream topical metoprolol tartrate 50 mg tablet 1 tab PO BID omeprazole 20 mg capsule,delayed release(DR/EC) 1 cap PO DAILY hydroxyzine HCl 10 mg tablet 1 tab PO BEDTIME insulin lispro [Humalog KwikPen Insulin] 100 unit/mL insulin pen 12 unit subcut TID Jardiance 25 mg tablet 1 tab PO QAM aspirin 81 mg Tablet,Chewable 1 tab DAILY Held Trulicity 3 mg/0.5 mL pen injector 3 mg subcut WE Hold Instructions: Resume on 05/27/22. hold until seen by her endocrinology insulin degludec [Tresiba FlexTouch U-100] 100 unit/mL (3 mL) insulin pen 20 unit subcut BEDTIME Hold Instructions: Resume on 05/28/22. hold off until seen by her artificial cherry maker. Discharge Orders: Discharge Order (Routine); Ordered 05/17/22 Ordered By: Bryson Dominguez Diet: Advance to usual diet Activity on Discharge: As tolerated Stand Alone Forms: Patient Portal Discharge page Care Plan Goals: Patient was admitted for abdominal pain related to pancreatic inflammation possible related to gallstone. Patient was treated with hydration bowel rest pain medications and slowly diet was advanced patient is tolerating well, in addition patient was seen by surgery: It was thought to be that patient diabetic medication might be also contributing to pancreatic inflammation so her tries but is changed to Lantus for now and patient is to go to her [facility] artificial cherry maker as well as follow-up with surgery out patiently for further plan of cholecystostomy if needed. patient was advised to hold Trulicity and Tresiba until sees her artificial cherry maker, given Lantus prescription. Above management discussed with the patient in detail length she understand and in agreement with the plan. Health Concerns: As above. Plan of Treatment: As above. Assessment: As above.
[2022-05-17] MEDS: Insulin Lispro 100 UNIT/ML 3 ML VIAL SUBCUT (11:48)
[2022-05-17 11:50] VITALS: PULSE 83; RESP 16; TEMP 36.6; O2SAT 95
--- NOTE | 2022-05-17 12:20 | MHC.CM.PN ---
PT WILL DC HOME TODAY WITH NO SERVICES PT TO ARRANGE TRANSPORT
== END 2022-05-17 14:02 | disposition home or self-care (01) | DRG 439 ==
LOC: HO.ED 20:41 → HO.EDOVER 05-13 00:08 → HO.IMC 05-13 14:11
PROVIDERS: Internal Medicine; Surgery; Admitting Provider Internal Medicine; Emergency Provider Internal Medicine; Visit Provider Internal Medicine
DX: K85.10 Biliary acute pancreatitis without necrosis or infection (principal); E87.1 Hypo-osmolality and hyponatremia; E87.20 Acidosis, unspecified; I25.10 Atherosclerotic heart disease of native coronary artery without angina pectoris; Z95.1 Presence of aortocoronary bypass graft; E78.5 Hyperlipidemia, unspecified; K42.9 Umbilical hernia without obstruction or gangrene; E66.01 Morbid (severe) obesity due to excess calories; Z91.14 Patient's other noncompliance with medication regimen; E86.0 Dehydration; I10 Essential (primary) hypertension; T38.3X5A Adverse effect of insulin and oral hypoglycemic [antidiabetic] drugs, initial encounter; E87.6 Hypokalemia; E11.9 Type 2 diabetes mellitus without complications; Z68.36 Body mass index [BMI] 36.0-36.9, adult; Z20.822 Contact with and (suspected) exposure to COVID-19; Z87.891 Personal history of nicotine dependence; Z79.4 Long term (current) use of insulin; Z79.82 Long term (current) use of aspirin; Z79.84 Long term (current) use of oral hypoglycemic drugs; Z79.899 Other long term (current) drug therapy
CPT/HCPCS: 36415; 71045; 74176; 74181; 76705; 80048; 80053; 80061; 80076; 82947; 83036; 83605; 83690; 83735; 84134; 84484; 85025; 85027; 85610; 87040; 87507; 87635; 93005; 93971; 99285; J1170; J1650; J2270; J2405; J2543

== ENCOUNTER 2022-05-27 13:04 | Outpatient (REF) | payer OTHER, SELFPAY ==
[2022-05-27 13:43] LABS: MANUAL DIFF FLAG NO
[2022-05-27 13:50] LABS: Basophils Absolute Auto 0.1 X10*3/uL (0.0-0.2); Basophils Percent Auto 0.8 % (0-2); Eosinophils Absolute Auto 0.4 X10*3/uL (0.0-0.4); Eosinophils Percent Auto 2.8 % (0-4); Hematocrit 30.8 % (37.0-47.0); Hemoglobin 9.6 g/dl (12.0-16.0); Imm Gran Abs Auto 0.28 X10*3/uL (0.00-0.03); Lymphocytes Absolute Auto 1.2 X10*3/uL (1.2-4.9); Lymphocytes Percent Auto 8.5 % (20-40); Mean Corpuscular HGB Conc 31.2 g/dl (31.0-35.0); Mean Corpuscular Hemoglobin 22.1 pg (27.0-33.0); Mean Platelet Volume 9.3 fL (9.4-12.3); Monocytes Absolute Auto 0.8 X10*3/uL (0.1-1.2); Monocytes Percent Auto 5.7 % (2-11); NRBC Pct Auto 0.1 /100WBC (0.0-0.2); Neutrophils Absolute Auto 11.4 x10*3/uL (2.0-8.3); Neutrophils Percent Auto 80.2 % (45-73); Red Blood Count 4.34 X10*6/uL (4.20-5.50); Red Cell Distribution Width 20.5 % (11.0-16.0); White Blood Count 14.2 X10*3/uL (4.8-10.8)
[2022-05-27 14:00] LABS: Platelet Count 823 X10*3/uL (160-400)
[2022-05-27 14:12] LABS: Estimated Average Glucose 192 mg/dL; Hemoglobin A1c % 8.3 %
[2022-05-27 14:19] LABS: Alanine Aminotransferase 20 U/L (0-31); Albumin Level 3.2 g/dL (3.5-5.0); Alkaline Phosphatase 130 U/L (39-117); Amylase 95 U/L (28-100); Anion Gap 14 (12-20); Aspartate Amino Transferase 26 U/L (5-31); Bilirubin Total 0.3 mg/dL (0.0-1.0); Blood Urea Nitrogen 17 mg/dL (9-16); Carbon Dioxide 25 mmol/L (22-29); Chloride 107 mmol/L (96-108); Estimated Glomerular Filt Rate 50; Glucose Random 312 mg/dL (60-115); Potassium 4.1 mmol/L (3.3-5.1); Sodium 142 mmol/L (135-145)
== END 2022-05-27 13:05 | disposition home or self-care (01) ==
LOC: HO.LAB 13:04
PROVIDERS: PCP Internal Medicine; Visit Provider Surgery
DX: K85.90 Acute pancreatitis without necrosis or infection, unspecified (principal); K85.10 Biliary acute pancreatitis without necrosis or infection; E11.9 Type 2 diabetes mellitus without complications; E87.20 Acidosis, unspecified; E66.3 Overweight; Z95.1 Presence of aortocoronary bypass graft
CPT/HCPCS: 36415; 80053; 82150; 83036; 84134; 85025

== ENCOUNTER 2022-06-10 14:55 | Outpatient (REF) | payer OTHER, SELFPAY ==
[2022-06-10 15:31] LABS: MANUAL DIFF FLAG NO
[2022-06-10 16:04] LABS: Basophils Absolute Auto 0.1 X10*3/uL (0.0-0.2); Basophils Percent Auto 1.2 % (0-2); Eosinophils Absolute Auto 0.6 X10*3/uL (0.0-0.4); Eosinophils Percent Auto 7.3 % (0-4); Hematocrit 32.7 % (37.0-47.0); Hemoglobin 9.6 g/dl (12.0-16.0); Imm Gran Abs Auto 0.03 X10*3/uL (0.00-0.03); Imm Gran Pct Auto 0.4 % (0.0-0.4); Lymphocytes Absolute Auto 1.2 X10*3/uL (1.2-4.9); Lymphocytes Percent Auto 14.6 % (20-40); Mean Corpuscular HGB Conc 29.4 g/dl (31.0-35.0); Mean Corpuscular Volume 71.4 fL (80.0-98.0); Monocytes Absolute Auto 0.8 X10*3/uL (0.1-1.2); Monocytes Percent Auto 9.7 % (2-11); Neutrophils Absolute Auto 5.4 x10*3/uL (2.0-8.3); Neutrophils Percent Auto 66.8 % (45-73); Platelet Count 551 X10*3/uL (160-400); Red Blood Count 4.58 X10*6/uL (4.20-5.50); Red Cell Distribution Width 19.9 % (11.0-16.0)
[2022-06-10 16:50] LABS: Alanine Aminotransferase 14 U/L (0-31); Albumin Level 3.6 g/dL (3.5-5.0); Alkaline Phosphatase 176 U/L (39-117); Anion Gap 15 (12-20); Aspartate Amino Transferase 20 U/L (5-31); Bilirubin Total 0.4 mg/dL (0.0-1.0); Blood Urea Nitrogen 33 mg/dL (9-16); Calcium 9.3 mg/dL (8.4-10.2); Carbon Dioxide 22 mmol/L (22-29); Chloride 106 mmol/L (96-108); Estimated Glomerular Filt Rate 39; Glucose Random 374 mg/dL (60-115); Potassium 5.1 mmol/L (3.3-5.1); Sodium 138 mmol/L (135-145); Total Protein 6.2 g/dL (6.5-8.0)
== END 2022-06-10 14:56 | disposition home or self-care (01) ==
LOC: HO.LAB 14:55
PROVIDERS: PCP Internal Medicine; Visit Provider Surgery
DX: E11.9 Type 2 diabetes mellitus without complications (principal); K85.90 Acute pancreatitis without necrosis or infection, unspecified; Z79.4 Long term (current) use of insulin; Z79.899 Other long term (current) drug therapy
CPT/HCPCS: 36415; 80053; 85025

== ENCOUNTER → 2022-07-14 14:06 | Outpatient (BNVA) | payer OTHER, SELFPAY | PROVIDERS: PCP Internal Medicine; Visit Provider Surgery | DX: Z13.89 Encounter for screening for other disorder (principal) ==

== ENCOUNTER 2022-11-27 14:23 | Inpatient (IN) | payer OTHER, SELFPAY ==
--- NOTE | 2022-11-27 | ECG_ITS ---
Test Reason : INTERMITTENT CP Blood Pressure : / mmHG Vent. Rate : 096 BPM Atrial Rate : 096 BPM P-R Int : 180 ms QRS Dur : 086 ms QT Int : 366 ms P-R-T Axes : 023 -04 044 degrees QTc Int : 462 ms Normal sinus rhythm Minimal voltage criteria for LVH, may be normal variant ( R in aVL ) Borderline ECG When compared with ECG of 12-MAY-2022 20:04, Questionable change in QRS axis Nonspecific T wave abnormality no longer evident in Lateral leads Referred By: Yogesh Juarez Electronically Signed By:ALYSSA HOYOS MD
--- NOTE | ~2022-11-27 | CT_ITS ---
EXAMINATION: CT ABDOMEN AND PELVIS WITHOUT CONTRAST CLINICAL INFORMATION: Abdominal pain COMPARISON: MRCP 05/13/2022 and abdominal ultrasound and CT abdomen pelvis 05/12/2022 TECHNIQUE: Multidetector volumetric imaging was performed from the superior aspect of the liver through the pubic symphysis. Sagittal and coronal reformatted images were obtained on the technologist's workstation. This CT examination was performed using dose optimization techniques as appropriate, variously including the following: *Automated exposure control *Adjustment of mA and/or kV according to patient size (this includes techniques or standardized protocols for targeted exams where dose is matched to indication/reason for exam; i.e. extremities or head) *Use of iterative reconstruction technique DLP: 546 mGy-cm FINDINGS: Visualized lung bases demonstrate mild atelectasis versus scarring. The liver is normal in size. Small gallstones are again noted within otherwise unremarkable appearing gallbladder. The pancreas, spleen and adrenal glands are unremarkable. Symmetrically sized kidneys. No renal calculi or hydronephrosis of either kidney. 5 cm right renal cyst again noted. The stomach is decompressed and therefore not accurately evaluated. Normal caliber loops of small and large bowel. There is diffuse circumferential thickening involving the entirety of the ascending colon. There is adjacent pericolonic stranding. No well organized fluid collection. Minimal diverticulosis of the distal colon without diverticulitis. Normal caliber abdominal aorta demonstrating severe atherosclerotic disease. Similar fat-containing umbilical hernia. The bladder is normal in appearance. Uterus is surgically absent. No gross free pelvic fluid. There is a single enlarged lymph node abutting the common femoral vein which measures 2.5 cm in transverse dimension, nonspecific. Diffuse osteopenia. Moderate to severe degenerative changes of the spine. There is similar mild to moderate anterolisthesis of L5 on S1. There is a moderate L3 compression which is age indeterminate but new from May. There are severe degenerative changes at the T12/S1 level. Partially visualized sternotomy wires. CT/CT abdomen pelvis wo IV con IMPRESSION: 1. Diffuse circumferential thickening involving the entirety of the ascending colon with adjacent pericolonic stranding. Findings are most suggestive of colitis, likely infectious or inflammatory. 2. Cholelithiasis. 3. 5 cm right renal cyst. 4. Single enlarged lymph node abutting the right common femoral vein which measures 2.5 cm in transverse dimension. This is a nonspecific finding. 5. Moderate L3 compression which is age indeterminate but new from May. Fleischner guidelines were followed.
[2022-11-27 14:24] VITALS: BP 113/57; PULSE 88; RESP 20; TEMP 36.6; O2SAT 98; BMI 32.3
--- NOTE | 2022-11-27 14:27 | ED.GENADULT ---
HPI - General Adult General Chief complaint: Abdominal Pain Stated complaint: abd pain Time Seen by Provider: 11/27/22 17:34 Source: patient Mode of arrival: ambulatory Limitations: no limitations History of Present Illness HPI narrative: patient with history of C diff colitis about 2 years ago a history of pancreatitis been feeling gaseous with diffuse abdominal pain since last night earlier today patient had big loose bowel movement feels very nauseated complaining of abdominal pain diffusely no blood in the stool patient been on doxycycline for skin lesions for last 10 days no fever no chills Related Data Home Medications Medication Instructions Recorded Confirmed aspirin 81 mg chewable tablet 1 tab DAILY 05/13/22 11/27/22 atorvastatin 80 mg tablet 1 tab PO BEDTIME 05/13/22 11/27/22 calcipotriene 0.005 % topical cream 1 appl topical BID PRN Itching 05/13/22 11/27/22 empagliflozin 25 mg tablet 1 tab PO QAM 05/13/22 11/27/22 (Jardiance) enalapril maleate 10 mg tablet 1 tab PO DAILY 05/13/22 11/27/22 insulin degludec 100 unit/mL (3 20 unit subcut BEDTIME 05/13/22 11/27/22 mL) subcutaneous pen (Tresiba FlexTouch U-100 insulin) insulin lispro 100 unit/mL 12 unit subcut TIDAC 05/13/22 11/27/22 subcutaneous pen (Humalog KwikPen (U-100) Insulin) metoprolol tartrate 50 mg tablet 1 tab PO BID 05/13/22 11/27/22 omeprazole 20 mg capsule,delayed 1 cap PO DAILY 05/13/22 11/27/22 release apixaban 5 mg tablet (Eliquis) 5 mg PO BID 11/27/22 11/27/22 diphenhydramine HCl 25 mg tablet 50 mg PO BEDTIME 11/27/22 11/27/22 doxycycline monohydrate 100 mg 100 mg PO BID 11/27/22 11/27/22 capsule nitroglycerin 0.3 mg sublingual 0.3 mg sublingual Q5M PRN Chest 11/27/22 11/27/22 tablet Pain triamcinolone acetonide 0.1 % 1 appl topical BID PRN Rash 11/27/22 11/27/22 topical cream Allergies Allergy/AdvReac Type Severity Reaction Status Date / Time Iodinated Contrast Media Allergy Unknown UNKNOWN Verified 07/14/22 14:14 [CONTRAST, IV] Review of Systems Review of Systems: Yes all other systems are reviewed and are negative [facility] Past Medical History Medical History Diabetes Hyperlipidemia Hypertension Morbid (severe) obesity due to excess calories Umbilical hernia Surgical History History of prolapse of bladder Hx of hysterectomy, total S/P triple vessel bypass (~2001) Social History Social History Household Members: Family Housing: House Do you presently have visiting nurse or other home services: No Alcohol intake: former Patient Tobacco Use Status: Former Tobacco user Smoked in Last 30 Days: No Use of substances other than those prescribed or required for medical reasons: No Advance Directives: No Advance Directives Information Provided: No service: No Physical Exam ED Vital Signs: Vital Signs - 24 hr 11/27/22 14:24 11/27/22 17:51 11/27/22 20:00 Temperature 97.8 F 98.5 F 97.9 F Pulse Rate 88 95 93 Respiratory Rate 20 18 17 Blood Pressure 113/57 L 148/57 H 172/58 H Pulse Oximetry 98 98 98 Oxygen Delivery Method Room Air Room Air Room Air BMI result Body Mass Index 32.3 Appearance: Alert. Oriented X3. No acute distress. Eyes: no pallor or icterus ENT: Pharynx normal. Oral Mucosa moist Neck: Normal inspection. Neck supple. CVS: Normal heart rate and rhythm. Pulses normal. Respiratory: No respiratory distress. Equal air entry bilateral, no wheezing/rales/rhonchi Abdomen: Soft , diffuse tenderness no rebound tenderness guarding. Bowel sounds are present, no mass palpable, no CVA tenderness Skin: Skin warm and dry. Normal skin color. Normal skin turgor. Extremities: No lower extremity edema. No calf tenderness Neuro: Oriented X 3. No motor deficit. Course Course Course Narrative: This is an RME: Additional HPI, ROS, PE not included below will be deferred to primary provider. This is a [id number], with a hx of pancreatitis, presenting to the emergency department for evaluation of diffuse abdominal pain with diarrhea. History of gallbladder problems and pancreatitis. Patient states that the pain started last night. No fevers or chills. Endorsing nausea no vomiting. Patient is afebrile, vital signs stable. Plan: Labs ordered. 1600 - WBC at 17.8. given hx of pancreatitis, CT abd pelvis ordered for further eval; pt allergic to IV contrast. Medications Administered Discontinued Medications Generic Name Dose Route Start Last Admin Trade Name Freq PRN Reason Stop Dose Admin Fidaxomicin 200 mg 11/27/22 18:16 11/27/22 18:58 Fidaxomicin 200 Mg Tablet PO 11/27/22 18:17 200 mg ONCE ONE Administration Sodium Chloride 1,000 mls @ 999 mls/hr 11/27/22 18:16 11/27/22 18:35 Ns IV 11/27/22 19:16 999 mls/hr .Q1H1M ONE Administration Ondansetron HCl 4 mg 11/27/22 18:18 11/27/22 18:35 Ondansetron Hcl 4 Mg/2 Ml Vial IVPUSH 11/27/22 18:19 4 mg ONCE ONE Administration Medical Decision Making Medical Decision Making [facility] Narrative: patient has diffuse colitis with history of C diff colitis on doxycycline likely has C diff colitis at this time. Will start patient on Fiaxomicin and admit patient denied any urinary symptoms urine showed nitrite positive without any wbc's will hold on for now antibiotic admit likely patient has C diff colitis Differential Diagnosis Differential Diagnoses: The differential diagnosis associated with the presentation includes C diff colitis / infectious diarrhea Admission/Observation Consideration of admission/observation: Escalation of care including admission/observation considered Consult Healthcare Provider Management of the patient was discussed with: Hospitalist Lab Data [facility] Lab Attestation statement: I reviewed the patient's lab results. 11/27/22 15:04 11/27/22 15:04 Labs: Lab Results 11/27/22 11/27/22 11/27/22 Range/Units 15:04 15:04 18:46 WBC 17.8 H (4.8-10.8) X10*3/uL RBC 5.26 (4.20-5.50) X10*6/uL Hgb 10.2 L (12.0-16.0) g/dl Hct 34.7 L (37.0-47.0) % MCV 66.0 L (80.0-98.0) fL MCH 19.4 L (27.0-33.0) pg MCHC 29.4 L (31.0-35.0) g/dl RDW 21.8 H (11.0-16.0) % Plt Count 432 H (160-400) X10*3/uL MPV 10.1 (9.4-12.3) fL Immature Gran % (Auto) 0.4 (0.0-0.4) % Neut % (Auto) 82.6 H (45-73) % Lymph % (Auto) 7.5 L (20-40) % [place] % (Auto) 7.9 (2-11) % Eos % (Auto) 1.0 (0-4) % Baso % (Auto) 0.6 (0-2) % Lymph # (Auto) 1.3 (1.2-4.9) X10*3/uL [place] # (Auto) 1.4 H (0.1-1.2) X10*3/uL Eos # (Auto) 0.2 (0.0-0.4) X10*3/uL Baso # (Auto) 0.1 (0.0-0.2) X10*3/uL Abs Immat Gran (auto) 0.08 H (0.00-0.03) X10*3/uL Absolute Neuts (auto) 14.7 H (2.0-8.3) x10*3/uL Absolute Nucleated RBC 0.000 (0.0-0.012) X10*3/uL Nucleated RBC % (auto) 0.0 (0.0-0.2) /100WBC Sodium 138 (135-145) mmol/L Potassium 4.7 (3.3-5.1) mmol/L Chloride 109 H (96-108) mmol/L Carbon Dioxide 18 L (22-29) mmol/L Anion Gap 16 (12-20) BUN 48 H (9-16) mg/dL Creatinine 1.04 (0.5-1.4) mg/dL Estim Creat Clear Calc 45.5 Estimated GFR 53 Random Glucose 104 (60-115) mg/dL Lactic Acid 1.1 (0.5-2.0) mmol/L Calcium 9.5 (8.4-10.2) mg/dL Total Bilirubin 0.3 (0.0-1.0) mg/dL Direct Bilirubin 0.2 (0.0-0.5) mg/dL AST 29 (5-31) U/L ALT 17 (0-31) U/L Alkaline Phosphatase 124 H (39-117) U/L Total Protein 6.1 L (6.5-8.0) g/dL Albumin 3.4 L (3.5-5.0) g/dL Lipase 286 H (8-78) U/L Urine Color Urine Appearance Urine pH (5.0-9.0) Ur Specific Dyer (1.005-1.025) Urine Protein (Neg-Trace) mg/dL Urine Glucose (UA) (Negative) mg/dL Urine Ketones (Negative) mg/dL Urine Blood (Negative) Urine Nitrite (Negative) Ur Leukocyte Esterase (Negative) Urine RBC (0-2) /HPF Urine WBC (0-5) /HPF Ur Squamous Epith Cells (0-2) /HPF Urine Bacteria (None Seen) Hyaline Casts (0-2) /LPF 11/27/22 Range/Units 20:20 WBC (4.8-10.8) X10*3/uL RBC (4.20-5.50) X10*6/uL Hgb (12.0-16.0) g/dl Hct (37.0-47.0) % MCV (80.0-98.0) fL MCH (27.0-33.0) pg MCHC (31.0-35.0) g/dl RDW (11.0-16.0) % Plt Count (160-400) X10*3/uL MPV (9.4-12.3) fL Immature Gran % (Auto) (0.0-0.4) % Neut % (Auto) (45-73) % Lymph % (Auto) (20-40) % [place] % (Auto) (2-11) % Eos % (Auto) (0-4) % Baso % (Auto) (0-2) % Lymph # (Auto) (1.2-4.9) X10*3/uL [place] # (Auto) (0.1-1.2) X10*3/uL Eos # (Auto) (0.0-0.4) X10*3/uL Baso # (Auto) (0.0-0.2) X10*3/uL Abs Immat Gran (auto) (0.00-0.03) X10*3/uL Absolute Neuts (auto) (2.0-8.3) x10*3/uL Absolute Nucleated RBC (0.0-0.012) X10*3/uL Nucleated RBC % (auto) (0.0-0.2) /100WBC Sodium (135-145) mmol/L Potassium (3.3-5.1) mmol/L Chloride (96-108) mmol/L Carbon Dioxide (22-29) mmol/L Anion Gap (12-20) BUN (9-16) mg/dL Creatinine (0.5-1.4) mg/dL Estim Creat Clear Calc Estimated GFR Random Glucose (60-115) mg/dL Lactic Acid (0.5-2.0) mmol/L Calcium (8.4-10.2) mg/dL Total Bilirubin (0.0-1.0) mg/dL Direct Bilirubin (0.0-0.5) mg/dL AST (5-31) U/L ALT (0-31) U/L Alkaline Phosphatase (39-117) U/L Total Protein (6.5-8.0) g/dL Albumin (3.5-5.0) g/dL Lipase (8-78) U/L Urine Color Yellow Urine Appearance Hazy Urine pH 5.5 (5.0-9.0) Ur Specific Dyer 1.025 (1.005-1.025) Urine Protein Negative (Neg-Trace) mg/dL Urine Glucose (UA) >=1000 H (Negative) mg/dL Urine Ketones 15 (Negative) mg/dL Urine Blood Negative (Negative) Urine Nitrite Positive H (Negative) Ur Leukocyte Esterase Negative (Negative) Urine RBC 0-2 (0-2) /HPF Urine WBC 0-5 (0-5) /HPF Ur Squamous Epith Cells 0-2 (0-2) /HPF Urine Bacteria 1+ (None Seen) Hyaline Casts 0-2 (0-2) /LPF Radiology Impression Discussion of test interpretation with radiology: I have reviewed the radiologist's reading. Radiologist Impression: CT/CT abdomen pelvis wo IV con IMPRESSION: 1.? Diffuse circumferential thickening involving the entirety of the ascending colon with adjacent pericolonic stranding. Findings are most suggestive of colitis, likely infectious or inflammatory. 2.? Cholelithiasis. 3.? 5 cm right renal cyst. 4.? Single enlarged lymph node abutting the right common femoral vein which measures 2.5 cm in transverse dimension. This is a nonspecific finding. 5.? Moderate L3 compression which is age indeterminate but new from May. ? Fleischner guidelines were followed. Discharge Plan Discharge Clinical Impression: Acute colitis Patient Disposition: Admitted As Inpatient
[2022-11-27 15:07] LABS: MANUAL DIFF FLAG NO
[2022-11-27 15:13] LABS: Basophils Absolute Auto 0.1 X10*3/uL (0.0-0.2); Basophils Percent Auto 0.6 % (0-2); Eosinophils Absolute Auto 0.2 X10*3/uL (0.0-0.4); Hematocrit 34.7 % (37.0-47.0); Hemoglobin 10.2 g/dl (12.0-16.0); Imm Gran Abs Auto 0.08 X10*3/uL (0.00-0.03); Imm Gran Pct Auto 0.4 % (0.0-0.4); Lymphocytes Absolute Auto 1.3 X10*3/uL (1.2-4.9); Lymphocytes Percent Auto 7.5 % (20-40); Mean Corpuscular HGB Conc 29.4 g/dl (31.0-35.0); Mean Corpuscular Hemoglobin 19.4 pg (27.0-33.0); Mean Platelet Volume 10.1 fL (9.4-12.3); Monocytes Absolute Auto 1.4 X10*3/uL (0.1-1.2); Monocytes Percent Auto 7.9 % (2-11); Neutrophils Absolute Auto 14.7 x10*3/uL (2.0-8.3); Neutrophils Percent Auto 82.6 % (45-73); Platelet Count 432 X10*3/uL (160-400); Red Blood Count 5.26 X10*6/uL (4.20-5.50); Red Cell Distribution Width 21.8 % (11.0-16.0); White Blood Count 17.8 X10*3/uL (4.8-10.8)
[2022-11-27 16:28] LABS: Alanine Aminotransferase 17 U/L (0-31); Albumin Level 3.4 g/dL (3.5-5.0); Alkaline Phosphatase 124 U/L (39-117); Anion Gap 16 (12-20); Aspartate Amino Transferase 29 U/L (5-31); Bilirubin Direct 0.2 mg/dL (0.0-0.5); Bilirubin Total 0.3 mg/dL (0.0-1.0); Blood Urea Nitrogen 48 mg/dL (9-16); Calcium 9.5 mg/dL (8.4-10.2); Carbon Dioxide 18 mmol/L (22-29); Chloride 109 mmol/L (96-108); Creatinine Clr Calc Pharmacy 45.5; Estimated Glomerular Filt Rate 53; Glucose Random 104 mg/dL (60-115); Lipase 286 U/L (8-78); Potassium 4.7 mmol/L (3.3-5.1); Sodium 138 mmol/L (135-145); Total Protein 6.1 g/dL (6.5-8.0)
[2022-11-27 17:51] VITALS: BP 148/57; PULSE 95; RESP 18; TEMP 36.9; O2SAT 98
[2022-11-27] MEDS: 0.9 % Sodium Chloride 1,000 ML 999 ML IV (18:35)
[2022-11-27] MEDS: ondansetron HCL 4 MG/2 ML VIAL IVPUSH (18:35)
[2022-11-27] MEDS: Fidaxomicin 200 MG TABLET PO (18:58)
[2022-11-27 19:04] LABS: Lactic Acid 1.1 mmol/L (0.5-2.0)
--- NOTE | 2022-11-27 19:23 | PHA.MEDREC ---
Pharmacy Consult ? Medication Reconciliation Pharmacy has completed the medication reconciliation. Patient was able to confirm all medications. Report Tresiba ranges from 20-24 units depending on Blood Sugars. Ange Edward, PharmD
[2022-11-27 20:00] VITALS: BP 172/58; PULSE 93; RESP 17; TEMP 36.6; O2SAT 98
--- NOTE | 2022-11-27 20:08 | P.HPHOSP_ITS ---
Pt seen and examined at bedside. I agree with JUAN. please see below for full H&P History of Present Illness Date of Service: 11/27/22 Attending physician on admission: Khris Vanegas Chief Complaint: Abdominal pain, diarrhea Pt is a 67-year-old female with a PMH significant for CAD s/p CABG in 2002, left carotid bypass surgery 2019, hx of blood clot in right shoulder on Eliquis, insulin-dependent diabetes type 2, HTN, HLD, hx of pancreatitis, and hx of C diff who presents to the ED with?abdominal pain and diarrhea since last evening. Patient states that she developed a ?stomach ache? last evening that progressively worsened until patient became gassy and had 4 episodes of loose, greenish stools last night. This morning patient still continued to have abdominal pain and had an additional 2 episodes of loose stools. Patient describes the pain as crampy and sharp, located in lower abdomen that occasionally with wrap around to her back. Patient worried that she might again be experiencing pancreatitis so came to the emergency department for evaluation. Patient also experienced some nausea this morning but no vomiting. Denies hematochezia. Patient also denies at her diarrhea was foul-smelling, reports that it did not smell at all like when she had C diff before. Patient also complains of intermittent chest pain/pressure for the past month that occurs mostly at night. Patient has already set up appointment to see avaya engineer. Currently is not experiencing any chest pain/pressure. Patient also has been experiencing a diffuse . Ache rash on her arms, legs, and buttocks for which she is taking doxycycline. Has been seeing a software engineer sales for months now for treatment. In the ED afebrile but hypertensive up to 172/58. Lbs were significant for leuk ocytosis of 17.8, stable H&H of 10.2/34.7, BUN 48, stable, chronically elevated transaminitis, lipase 286. Electrolytes grossly unremarkable. CT of abdomen and pelvis showed diffuse circumferential thickening involving the entirety of the ascending colon with adjacent pericolonic stranding, suggestive of either infectious or inflammatory colitis. CT also found cholelithiasis, 5 cm right renal cyst, single enlarged lymph node abutting right common femoral vein, and moderate L3 compression which is new from May. Pt was treated with ondansetron, IVF, and fidaxomicin. Pt will be admitted to the hospital for treatment further evaluation of pancolitis. Review of Systems Review of Systems: Abdominal pain Diarrhea Nausea, no vomiting Denies fever, chills No SOB Intermittent chest pain/pressure x1 month, none currently Yes all other systems are reviewed and are negative FOR[facility]LY [facility] Medical History Diabetes Hyperlipidemia Hypertension Morbid (severe) obesity due to excess calories Umbilical hernia Surgical History History of prolapse of bladder Hx of hysterectomy, total S/P triple vessel bypass (~2001) Social History Household Members: Family Housing: House Do you presently have visiting nurse or other home services: No Alcohol intake: former Patient Tobacco Use Status: Former Tobacco user Smoked in Last 30 Days: No Use of substances other than those prescribed or required for medical reasons: No Advance Directives: No Advance Directives Information Provided: No service: No Meds Allergies Allergy/AdvReac Type Severity Reaction Status Date / Time Iodinated Contrast Media Allergy Unknown UNKNOWN Verified 07/14/22 14:14 [CONTRAST, IV] Home Medications Medication Instructions Recorded Confirmed Last Taken Type aspirin 81 mg chewable tablet 1 tab DAILY 05/13/22 11/27/22 11/27/22 History atorvastatin 80 mg tablet 1 tab PO BEDTIME 05/13/22 11/27/22 11/26/22 History calcipotriene 0.005 % topical cream 1 appl topical BID PRN Itching 05/13/22 11/27/22 11/27/22 History empagliflozin 25 mg tablet 1 tab PO QAM 05/13/22 11/27/22 11/27/22 History (Jardiance) enalapril maleate 10 mg tablet 1 tab PO DAILY 05/13/22 11/27/22 11/27/22 History insulin degludec 100 unit/mL (3 20 unit subcut BEDTIME 05/13/22 11/27/22 11/26/22 History mL) subcutaneous pen (Tresiba FlexTouch U-100 insulin) insulin lispro 100 unit/mL 12 unit subcut TIDAC 05/13/22 11/27/22 11/27/22 Hi story subcutaneous pen (Humalog KwikPen (U-100) Insulin) metoprolol tartrate 50 mg tablet 1 tab PO BID 05/13/22 11/27/22 11/27/22 History omeprazole 20 mg capsule,delayed 1 cap PO DAILY 05/13/22 11/27/22 11/27/22 History release apixaban 5 mg tablet (Eliquis) 5 mg PO BID 11/27/22 11/27/22 11/27/22 History diphenhydramine HCl 25 mg tablet 50 mg PO BEDTIME 11/27/22 11/27/22 11/26/22 History doxycycline monohydrate 100 mg 100 mg PO BID 11/27/22 11/27/22 11/27/22 History capsule nitroglycerin 0.3 mg sublingual 0.3 mg sublingual Q5M PRN Chest 11/27/22 11/27/22 11/27/22 History tablet Pain triamcinolone acetonide 0.1 % 1 appl topical BID PRN Rash 11/27/22 11/27/22 11/27/22 History topical cream Physical Exam Vital Signs and Narrative: Vital Signs: Last Vital Signs Temp 97.9 F 11/27/22 20:00 Pulse 93 11/27/22 20:00 Resp 17 11/27/22 20:00 BP 172/58 H 11/27/22 20:00 Pulse Ox 98 11/27/22 20:00 O2 Del Method Room Air 11/27/22 20:00 BMI result Body Mass Index 32.3 Constitutional: Alert, in no acute distress. Mental Status: Oriented to person, place and time. Eyes: Pupils are equal, round, and reactive to light. Ear, Nose, and Throat: Oropharynx clear, mucous membranes moist. Ears and nose without deformities. Trachea midline. Respiratory: Clear to auscultation bilaterally. No wheezing, rales, or rhonchi. Cardiovascular: S1, S2 regular. 3/6 murmur. No rubs or gallops. Gastrointestinal: Abdomen soft, non-distended. Lower abdomen tender. Normal bowel sounds. Neurologic: Cranial nerves II-XII are grossly intact bilaterally. No focal neurological deficits. Moves all extremities spontaneously. Skin: Multiple discrete lesions on legs and arms. Rash is irregular with erythematous base with central ulceration. Musculoskeletal: No cyanosis or clubbing. Extremities: No edema. Psychiatric: Normal mood and affect. Results Labs 11/27/22 15:04 11/27/22 15:04 Labs: Laboratory Results - last 24 hr 11/27/22 11/27/22 11/27/22 15:04 15:04 18:46 MCV 66.0 L MCH 19.4 L MCHC 29.4 L RDW 21.8 H Plt Count 432 H MPV 10.1 Immature Gran % (Auto) 0.4 Neut % (Auto) 82.6 H Lymph % (Auto) 7.5 L [place] % (Auto) 7.9 Eos % (Auto) 1.0 Baso % (Auto) 0.6 Lymph # (Auto) 1.3 [place] # (Auto) 1.4 H Eos # (Auto) 0.2 Baso # (Auto) 0.1 Abs Immat Gran (auto) 0.08 H Absolute Neuts (auto) 14.7 H Absolute Nucleated RBC 0.000 Nucleated RBC % (auto) 0.0 Anion Gap 16 Estim Creat Clear Calc 45.5 Estimated GFR 53 Random Glucose 104 Lactic Acid 1.1 Calcium 9.5 Total Bilirubin 0.3 Direct Bilirubin 0.2 AST 29 ALT 17 Alkaline Phosphatase 124 H Total Protein 6.1 L Albumin 3.4 L Lipase 286 H Imaging Radiologist's Impressions: Impressions Abdomen/Pelvis CT 11/27/22 16:27 IMPRESSION: 1. Diffuse circumferential thickening involving the entirety of the ascending colon with adjacent pericolonic stranding. Findings are most suggestive of colitis, likely infectious or inflammatory. 2. Cholelithiasis. 3. 5 cm right renal cyst. 4. Single enlarged lymph node abutting the right common femoral vein which measures 2.5 cm in transverse dimension. This is a nonspecific finding. 5. Moderate L3 compression which is age indeterminate but new from May. Fleischner guidelines were followed. Assessment and Plan (1) Acute colitis: Status: Acute Plan Pt is a 67-year-old female with a PMH significant for CAD s/p CABG in 2002, left carotid bypass surgery 2019, hx of blood clot in right shoulder on Eliquis, insulin-dependent diabetes type 2, HTN, HLD, hx of pancreatitis, and hx of C diff who presents to the ED with?abdominal pain and diarrhea since last evening. Colitis CT of abdomen/pelvis showing likely colitis of entirity of ascending colon Pt received Fidaxomicin in the ED Hold off on continuing Fidaxomicin until C-DIff studies return Will give ceftriaxone and metronidazole, started 11/27/2022 Anagesics for pain management Clear liquid diet, advance as tolerated Chest pain/pressure Patient has been experiencing intermittent chest pain for the past month mostly at night Currently asymptomatic Will check troponin, EKG Has scheduled appointment with avaya engineer, should follow up outpatient Will monitor on telemetry Question of UTI UA positive for nitrite, 1+ bacteria, negative for leukocyte esterase, WBC, epithelial cells Patient currently on ceftriaxone Follow cultures Insulin-dependent diabetes type 2 Hold home meds Continue Jardiance Sliding scale insulin Given reduced diet, will give lantus at 50% reduction, adjust as necessary CAD Continue aspirin, statin Microcytic anemia Pt's H&H 10.2/34.7, stable at [place] Rash Pt has had diffuse rash for months now Followed by dermatology who has biopsied them Continue doxycycline, what ointments we have on formulary F/U outpatient with dermatology HTN Continue home meds Abnormal CT findings CT showed moderate L3 compression, new since May Pt currently not experiencing back pain Should f/u with PCP if develops back pain Full Code Attending:?Dr. Vanegas DVT Prophylaxis: On Eliquis Pt will require a hospitalization of at least two nights for treatment of?colitis with IV antibiotics and analgesics. Time Spent With Patient Time: Total time managing care of this patient today ____ minutes. Quality Stroke Does the patient have a stroke diagnosis?: No VTE Prior VTE?: No VTE Risk Level:: Medical - moderate - high VTE Device Contraindication: Treatment Not Indicated VTE Drug Contraindication: N/A - Med Ordered
[2022-11-27 20:33] LABS: Color Urine Yellow; Glucose Urine UA >=1000 mg/dL (Negative); Leukocyte Esterase Urine Negative (Negative); Nitrite Urine Positive (Negative); PH 5.5 (5.0-9.0); Specific Gravity - Urine 1.025 (1.005-1.025); UMIC TRIGGER UACC YES; Urine Blood Negative (Negative); Urine Ketones 15 mg/dL (Negative); Urine Protein Negative (Neg-Trace)
[2022-11-27 20:36] LABS: Appearance Urine Hazy
[2022-11-27 20:37] LABS: Bacteria Urine 1+ (None Seen); RBC Urine 0-2 /HPF (0-2); Squamous Epithelial Cell Urine 0-2 /HPF (0-2); UACC Culture Trigger YES; WBC Urine 0-5 /HPF (0-5)
[2022-11-27 20:38] LABS: Hyaline Casts Urine 0-2 /LPF (0-2)
[2022-11-27] MEDS: Doxycycline Monohydrate 100 MG CAPSULE PO (21:28)
[2022-11-27] MEDS: Metoprolol Tartrate 50 MG TABLET PO (21:28)
[2022-11-27] MEDS: Apixaban 5 MG TABLET PO (21:28)
[2022-11-27] MEDS: Atorvastatin Calcium 80 MG TABLET PO (21:29)
[2022-11-27] MEDS: diphenhydrAMINE HCL 25 MG CAPSULE 50 MG PO (21:29)
[2022-11-27] MEDS: cefTRIAXone sodium 1 GM in 0.9 % Sodium Chloride 50 ML IV (21:30)
[2022-11-27] MEDS: metroNIDAZOLE/NS 500 MG/100 ML PIGGYBACK 100 MG IV (21:45)
[2022-11-27 21:51] LABS: Troponin-I High Sensitivity 5.1 ng/L (<3.5-17.0)
[2022-11-27 21:54] LABS: Glucose, Whole Blood 90 mg/dL (60-115)
[2022-11-27 22:47] VITALS: BP 149/64; PULSE 83; RESP 18; TEMP 36.7; O2SAT 97
[2022-11-28] VITALS (7 sets, daily range): BP systolic 122–176; BP diastolic 55–80; PULSE 58–95; RESP 14–18; TEMP 35.5–37; O2SAT 95–97
--- NOTE | 2022-11-28 01:03 | PC.NURSE ---
Assisted to bathroom with steady gait. pt states lives at home with daughter and . abdominal pain started same day she came in to hospital. hx of pancreatitis and colitis. no nausea. aware that staff needs stool specimen.
[2022-11-28 05:03] LABS: Hematocrit 33.4 % (37.0-47.0); Hemoglobin 9.7 g/dl (12.0-16.0); Mean Corpuscular Hemoglobin 19.3 pg (27.0-33.0); Mean Corpuscular Volume 66.4 fL (80.0-98.0); Mean Platelet Volume 10.2 fL (9.4-12.3); Platelet Count 342 X10*3/uL (160-400); Red Blood Count 5.03 X10*6/uL (4.20-5.50); Red Cell Distribution Width 21.1 % (11.0-16.0)
[2022-11-28 05:07] LABS: Anion Gap 14 (12-20); Blood Urea Nitrogen 32 mg/dL (9-16); Calcium 8.6 mg/dL (8.4-10.2); Carbon Dioxide 20 mmol/L (22-29); Chloride 109 mmol/L (96-108); Creatinine Clr Calc Pharmacy 63.1; Estimated Glomerular Filt Rate > 60; Glucose Random 101 mg/dL (60-115); Potassium 4.4 mmol/L (3.3-5.1); Sodium 139 mmol/L (135-145)
[2022-11-28] MEDS: metroNIDAZOLE/NS 500 MG/100 ML PIGGYBACK 100 MG IV ×3 (05:14→20:48)
[2022-11-28 07:55] LABS: Glucose, Whole Blood 122 mg/dL (60-115)
[2022-11-28] MEDS: Omeprazole 20 MG CAPSULE.DR PO (08:23)
[2022-11-28] MEDS: Aspirin 81 MG TAB.CHEW PO (08:23)
[2022-11-28] MEDS: Metoprolol Tartrate 50 MG TABLET PO ×2 (08:23→20:46)
[2022-11-28] MEDS: Doxycycline Monohydrate 100 MG CAPSULE PO ×2 (08:23→20:46)
[2022-11-28] MEDS: 0.9 % Sodium Chloride Flush 3 ML SYRINGE IVFLUSH ×3 (08:23→20:49)
[2022-11-28] MEDS: Enalapril Maleate 10 MG TABLET PO (08:23)
[2022-11-28] MEDS: Apixaban 5 MG TABLET PO ×2 (08:23→20:46)
[2022-11-28] MEDS: Empagliflozin 25 MG TABLET PO (08:23)
[2022-11-28 08:30] LABS: Iron 23 mcg/dL (30-160); Percent Iron Saturation 9 % (15-50); Total Iron Binding Capacity 253 mcg/dL (228-428); Unsaturated Iron Binding 230 ug/dL
[2022-11-28 11:25] LABS: Glucose, Whole Blood 286 mg/dL (60-115)
[2022-11-28] MEDS: Insulin Lispro 100 UNIT/ML 3 ML VIAL SUBCUT ×2 (12:15→20:46)
--- NOTE | 2022-11-28 13:15 | HO.PM.IMPN ---
Subjective Subjective Date of Service: 11/28/22 Interval History: Seen this morning having clear liquids feels better, less pain No fever overnight U.Cx growing GNR Review of Systems Review of Systems: Yes all other systems are reviewed and are negative Physical Exam Vital Signs: Vital Signs: Last Vital Signs Temp 97.5 F 11/28/22 11:27 Pulse 58 11/28/22 11:27 Resp 18 11/28/22 11:27 BP 139/64 11/28/22 11:27 Pulse Ox 97 11/28/22 11:27 O2 Del Method Room Air 11/28/22 11:27 BMI result Body Mass Index 32.3 Const: Other: Constitutional : Awake, interactive, not in distress Neck : Normal inspection, Supple Cardiovascular : RRR, no JVP, no lower extremity edema Respiratory : good bilateral air entry, no crackles, wheezes or rhonchi Gastrointestinal: soft, lax, Normal bowel sounds, Lower abdominal mild tenderness with palpation, no rebound Skin : Warm, Dry Neurological : Alert & oriented x3, No focal deficit Objective Data Active Medications Acetaminophen (Acetaminophen 325 Mg Tablet) 650 mg PO Q6H PRN PRN Reason: Pain, Mild (Pain Scale 1-3) Apixaban (Apixaban 5 Mg Tablet) 5 mg PO BID [facility] Last Admin: 11/28/22 08:23 Dose: 5 mg Documented By: IRAJ Aspirin (Aspirin 81 Mg Tab.Chew) 81 mg PO DAILY [facility] Last Admin: 11/28/22 08:23 Dose: 81 mg Documented By: IRAJ Atorvastatin Calcium (Atorvastatin Calcium 80 Mg Tablet) 80 mg PO BEDTIME [facility] Last Admin: 11/27/22 21:29 Dose: 80 mg Documented By: RAQUEL Dextrose (Dextrose 50 % 25 Gm/50 Ml Syringe) 25 gm IVPUSH Q15M PRN; Protocol PRN Reason: per Hypoglycemia Standing Ord. Diphenhydramine HCl (Diphenhydramine Hcl 25 Mg Capsule) 50 mg PO BEDTIME [facility] Last Admin: 11/27/22 21:29 Dose: 50 mg Documented By: RAQUEL Docusate Sodium (Docusate Sodium 100 Mg Capsule) 100 mg PO DAILY PRN PRN Reason: Constipation Doxycycline Monohydrate (Doxycycline Monohydrate 100 Mg Capsule) 100 mg PO BID [facility] Last Admin: 11/28/22 08:23 Dose: 100 mg Documented By: IRAJ Empagliflozin (Empagliflozin 25 Mg Tablet) 25 mg PO DAILY [facility] Last Admin: 11/28/22 08:23 Dose: 25 mg Documented By: IRAJ Enalapril Maleate (Enalapril Maleate 10 Mg Tablet) 10 mg PO DAILY [facility]; Protocol Last Admin: 11/28/22 08:23 Dose: 10 mg Documented By: IRAJ Glucose (Glucose Gel 15 Gm Gel..Gram.) 15 gm PO Q15M PRN; Protocol PRN Reason: per Hypoglycemia Standing Ord. Ceftriaxone Sodium 1 gm/ (Sodium Chloride) 50 mls @ 100 mls/hr IV Q24H [facility] Last Infusion: 11/27/22 22:00 Dose: 0 mls/hr Documented By: GOGO-PORANN Metronidazole (Flagyl) 500 mg in 100 mls @ 100 mls/hr IV Q8H [facility] Last Infusion: 11/28/22 06:37 Dose: 0 mls/hr Documented By: ANTOINETTE Insulin Glargine (Insulin Glargine,Hum.Rec.Anlog 100 Unit/Ml 10 Ml Vial) 10 unit SUBCUT BEDTIME [facility] Last Admin: 11/27/22 22:04 Dose: Not Given Documented By: RAQUEL Non-Admin Reason: Patient Refused Insulin Human Lispro (Insulin Lispro 100 Unit/Ml 3 Ml Vial) 0 unit SUBCUT QIDACHS [facility]; Protocol Last Admin: 11/28/22 12:15 Dose: 6 unit Documented By: ARABELLA Metoprolol Tartrate (Metoprolol Tartrate 50 Mg Tablet) 50 mg PO BID [facility]; Protocol Last Admin: 11/28/22 08:23 Dose: 50 mg Documented By: IRAJ Nitroglycerin (Nitroglycerin 0.4 Mg Tab.Subl) 0.4 mg SUBLINGUAL Q5M PRN PRN Reason: Chest Pain Omeprazole (Omeprazole 20 Mg Capsule.Dr) 20 mg PO DAILY [facility] Last Admin: 11/28/22 08:23 Dose: 20 mg Documented By: IRAJ Ondansetron HCl (Ondansetron Hcl 4 Mg/2 Ml Vial) 4 mg IVPUSH Q8H PRN PRN Reason: Nausea and Vomiting Sodium Chloride (0.9 % Sodium Chloride Flush 3 Ml Syringe) 3 ml IVFLUSH QSHIFT [facility] Last Admin: 11/28/22 08:23 Dose: 3 ml Documented By: IRAJ Triamcinolone Acetonide (Triamcinolone Acet 0.1 % Cream 15 Gm Tube) 1 appl TOPICAL BID PRN; Protocol PRN Reason: Rash Labs 11/28/22 04:44 11/28/22 04:44 Labs: Laboratory Results - last 24 hr 11/27/22 11/27/22 11/27/22 15:04 15:04 18:46 MCV 66.0 L MCH 19.4 L MCHC 29.4 L RDW 21.8 H Plt Count 432 H MPV 10.1 Immature Gran % (Auto) 0.4 Neut % (Auto) 82.6 H Lymph % (Auto) 7.5 L [place] % (Auto) 7.9 Eos % (Auto) 1.0 Baso % (Auto) 0.6 Lymph # (Auto) 1.3 [place] # (Auto) 1.4 H Eos # (Auto) 0.2 Baso # (Auto) 0.1 Abs Immat Gran (auto) 0.08 H Absolute Neuts (auto) 14.7 H Absolute Nucleated RBC 0.000 Nucleated RBC % (auto) 0.0 Anion Gap 16 Estim Creat Clear Calc 45.5 Estimated GFR 53 POC Glucose Random Glucose 104 Lactic Acid 1.1 Calcium 9.5 Iron TIBC % Saturation Unsat Iron Binding Total Bilirubin 0.3 Direct Bilirubin 0.2 AST 29 ALT 17 Alkaline Phosphatase 124 H Total Protein 6.1 L Albumin 3.4 L Lipase 286 H Urine Color Urine Appearance Urine pH Ur Specific [place] Urine Protein Urine Glucose (UA) Urine Ketones Urine Blood Urine Nitrite Ur Leukocyte Esterase Urine RBC Urine WBC Ur Squamous Epith Cells Urine Bacteria Hyaline Casts 11/27/22 11/27/22 11/28/22 20:20 21:49 04:44 MCV 66.4 L MCH 19.3 L MCHC 29.0 L RDW 21.1 H Plt Count 342 MPV 10.2 Immature Gran % (Auto) Neut % (Auto) Lymph % (Auto) [place] % (Auto) Eos % (Auto) Baso % (Auto) Lymph # (Auto) [place] # (Auto) Eos # (Auto) Baso # (Auto) Abs Immat Gran (auto) Absolute Neuts (auto) Absolute Nucleated RBC 0.000 Nucleated RBC % (auto) 0.0 Anion Gap Estim Creat Clear Calc Estimated GFR POC Glucose 90 Random Glucose Lactic Acid Calcium Iron TIBC % Saturation Unsat Iron Binding Total Bilirubin Direct Bilirubin AST ALT Alkaline Phosphatase Total Protein Albumin Lipase Urine Color Yellow Urine Appearance Hazy Urine pH 5.5 Ur Specific [place] 1.025 Urine Protein Negative Urine Glucose (UA) >=1000 H Urine Ketones 15 Urine Blood Negative Urine Nitrite Positive H Ur Leukocyte Esterase Negative Urine RBC 0-2 Urine WBC 0-5 Ur Squamous Epith Cells 0-2 Urine Bacteria 1+ Hyaline Casts 0-2 11/28/22 11/28/22 11/28/22 04:44 07:45 11:20 MCV MCH MCHC RDW Plt Count MPV Immature Gran % (Auto) Neut % (Auto) Lymph % (Auto) [place] % (Auto) Eos % (Auto) Baso % (Auto) Lymph # (Auto) [place] # (Auto) Eos # (Auto) Baso # (Auto) Abs Immat Gran (auto) Absolute Neuts (auto) Absolute Nucleated RBC Nucleated RBC % (auto) Anion Gap 14 Estim Creat Clear Calc 63.1 Estimated GFR > 60 POC Glucose 122 H 286 H Random Glucose 101 Lactic Acid Calcium 8.6 D Iron 23 L TIBC 253 % Saturation 9 L Unsat Iron Binding 230 Total Bilirubin Direct Bilirubin AST ALT Alkaline Phosphatase Total Protein Albumin Lipase Urine Color Urine Appearance Urine pH Ur Specific [place] Urine Protein Urine Glucose (UA) Urine Ketones Urine Blood Urine Nitrite Ur Leukocyte Esterase Urine RBC Urine WBC Ur Squamous Epith Cells Urine Bacteria Hyaline Casts Microbiology Microbiology Results: Microbiology 11/27/22 Unknown Urine Culture - Preliminary Urine clean catch - Urine gross top Gram negative suhail Assessment and Plan (1) Acute colitis: Status: Acute (2) UTI (urinary tract infection): Status: Acute Plan Pt is a 67-year-old female with a PMH significant for CAD s/p CABG in 2002, left carotid bypass surgery 2019, hx of blood clot in right shoulder on Eliquis, insulin-dependent diabetes type 2, HTN, HLD, hx of pancreatitis, and hx of C diff who presents to the ED with?abdominal pain and diarrhea since last evening. Colitis CT of abdomen/pelvis showing likely colitis of entirity of ascending colon pending C-DIff studies Continue ceftriaxone and metronidazole, started 11/27/2022 Anagesics for pain management Clear liquid diet, advance as tolerated Chest pressure intermittent chest pain for the past month mostly at night Currently asymptomatic Negative troponin, No EKG changes to suggest ACS Has scheduled appointment with education department chair, should follow up outpatient monitor on telemetry UTI Patient currently on ceftriaxone GNR in urine cultures Insulin-dependent diabetes type 2 Hold home meds Continue Jardiance Sliding scale insulin Given reduced diet, will give lantus at 50% reduction, adjust as necessary CAD Continue aspirin, statin Microcytic anemia Pt's H&H 10.2/34.7, stable at baseline Rash Pt has had diffuse rash for months now Followed by dermatology who has biopsied them Continue doxycycline, what ointments we have on formulary F/U outpatient with dermatology HTN Continue home meds Abnormal CT findings CT showed moderate L3 compression, new since May Pt currently not experiencing back pain Should f/u with PCP if develops back pain DVT Prophylaxis: On Eliquis Pt will require a hospitalization overnight for treatment of?colitis with IV antibiotics and analgesics pending cultures and clinical improvement Time Spent With Patient Time: Total time managing care of this patient today ____ minutes. Quality Stroke Does the patient have a stroke diagnosis?: No VTE Prior VTE?: No VTE Risk Level:: Medical - moderate - high VTE Device Contraindication: Treatment Not Indicated VTE Drug Contraindication: N/A - Med Ordered
[2022-11-28 16:08] LABS: Glucose, Whole Blood 135 mg/dL (60-115)
--- NOTE | 2022-11-28 16:15 | MHC.CM.PN ---
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
[2022-11-28 20:21] LABS: Glucose, Whole Blood 172 mg/dL (60-115)
[2022-11-28] MEDS: Atorvastatin Calcium 80 MG TABLET PO (20:46)
[2022-11-28] MEDS: Insulin Glargine,Hum.rec.anlog 100 UNIT/ML 10 ML VIAL 10 UNIT SUBCUT (20:48)
[2022-11-28] MEDS: cefTRIAXone sodium 1 GM in 0.9 % Sodium Chloride 50 ML IV (20:48)
[2022-11-28 21:55] LABS: CDiff Gene PCR NEGATIVE (Negative)
[2022-11-28] MEDS: diphenhydrAMINE HCL 25 MG CAPSULE 50 MG PO (23:48)
[2022-11-29 04:00] VITALS: BP 141/65; PULSE 59; RESP 18; TEMP 36.5; O2SAT 95
--- NOTE | 2022-11-29 04:15 | PC.NURSE ---
c-dif negative, contact precautions completed.
[2022-11-29] MEDS: metroNIDAZOLE/NS 500 MG/100 ML PIGGYBACK 100 MG IV (06:13)
[2022-11-29 06:19] LABS: Hematocrit 30.2 % (37.0-47.0); Mean Corpuscular HGB Conc 29.8 g/dl (31.0-35.0); Mean Corpuscular Hemoglobin 19.7 pg (27.0-33.0); Mean Corpuscular Volume 65.9 fL (80.0-98.0); Mean Platelet Volume 10.3 fL (9.4-12.3); Platelet Count 356 X10*3/uL (160-400); Red Blood Count 4.58 X10*6/uL (4.20-5.50); Red Cell Distribution Width 21.5 % (11.0-16.0); White Blood Count 11.6 X10*3/uL (4.8-10.8)
[2022-11-29 07:47] LABS: Anion Gap 14 (12-20); Blood Urea Nitrogen 20 mg/dL (9-16); Calcium 8.8 mg/dL (8.4-10.2); Carbon Dioxide 20 mmol/L (22-29); Chloride 109 mmol/L (96-108); Creatinine Clr Calc Pharmacy 68.6; Estimated Glomerular Filt Rate > 60; Potassium 3.9 mmol/L (3.3-5.1); Sodium 139 mmol/L (135-145)
[2022-11-29 07:51] LABS: Glucose, Whole Blood 66 mg/dL (60-115)
[2022-11-29 08:00] VITALS: BP 137/63; PULSE 77; RESP 16; TEMP 36.2; O2SAT 98
[2022-11-29] MEDS: Doxycycline Monohydrate 100 MG CAPSULE PO (08:06)
[2022-11-29] MEDS: Enalapril Maleate 10 MG TABLET PO (08:06)
[2022-11-29] MEDS: Apixaban 5 MG TABLET PO (08:06)
[2022-11-29] MEDS: Metoprolol Tartrate 50 MG TABLET PO (08:07)
[2022-11-29] MEDS: Aspirin 81 MG TAB.CHEW PO (08:07)
[2022-11-29] MEDS: Empagliflozin 25 MG TABLET PO (08:07)
[2022-11-29] MEDS: Omeprazole 20 MG CAPSULE.DR PO (08:07)
[2022-11-29] MEDS: 0.9 % Sodium Chloride Flush 3 ML SYRINGE IVFLUSH (08:16)
[2022-11-29] MEDS: Insulin Lispro 100 UNIT/ML 3 ML VIAL SUBCUT ×2 (08:21→12:21)
[2022-11-29 08:23] LABS: Glucose, Whole Blood 175 mg/dL (60-115)
--- NOTE | 2022-11-29 11:28 | P.DS_ITS ---
DS: Providers Provider Date of Service: 11/29/22 Date of admission: 11/27/22 20:59 Primary care physician: Moiz Nesbitt MD Consults: 11/27/22 18:17 Consult to Infectious Diseases Routine Consulting Provider: Juanita Beckett Reason for consultation: c diff Has provider been notified: Yes DS: Diagnosis Discharge Diagnosis (1) Acute colitis: Status: Acute (2) UTI (urinary tract infection): Status: Acute (3) Anemia: Status: Acute DS: Summary Hospital Course Hospital Course: Admission note HPI Pt is a 67-year-old female with a PMH significant for CAD s/p CABG in 2002, left carotid bypass surgery 2019, hx of blood clot in right shoulder on Eliquis, insulin-dependent diabetes type 2, HTN, HLD, hx of pancreatitis, and hx of C diff who presents to the ED with?abdominal pain and diarrhea since last evening.? Patient states that she developed a ?stomach ache? last evening that progressively worsened until patient became gassy and had 4 episodes of loose, greenish stools last night.? This morning patient still continued to have abdominal pain and had an additional 2 episodes of loose stools.? Patient describes the pain as crampy and sharp, located in lower abdomen that occasionally with wrap around to her back.? Patient worried that she might again be experiencing pancreatitis so came to the emergency department for evaluation.? Patient also experienced some nausea this morning but no vomiting.? Denies hematochezia.? Patient also denies at her diarrhea was foul-smelling, reports that it did not smell at all like when she had C diff before.? Patient also complains of intermittent chest pain/pressure for the past month that occurs mostly at night.? Patient has already set up appointment to see recording studio setup worker.? Currently is not experiencing any chest pain/pressure.? Patient also has been experiencing a diffuse .? Ache rash on her arms, legs, and buttocks for which she is taking doxycycline.? Has been seeing a shoulder boner for months now for treatment. In the ED afebrile but hypertensive up to 172/58. Lbs were significant for leukocytosis of 17.8, stable H&H of 10.2/34.7, BUN 48, stable, chronically elevated transaminitis, lipase 286.? Electrolytes grossly unremarkable.? CT of abdomen and pelvis showed diffuse circumferential thickening involving the entirety of the ascending colon with adjacent pericolonic stranding, suggestive of either infectious or inflammatory colitis.? CT also found cholelithiasis, 5 cm right renal cyst, single enlarged lymph node abutting right common femoral vein, and moderate L3 compression which is new from May. Pt was treated with ondansetron, IVF, and fidaxomicin. Pt will be admitted to the hospital for treatment further evaluation of pancolitis. Hospital course # Acute Colitis. CT of abdomen/pelvis showing likely colitis of entirity of ascending colon. Negative C-DIff studies. Treated with ceftriaxone and me tronidazole, started 11/27/2022. Anagesics for pain management. Tolerated diet with no reported pain, nausea or vomiting. To continue 1 week of antibiotics. # Chest pressure reported ?intermittent chest pain for the past month mostly at night. asymptomatic while inpatient. Negative troponin, No EKG changes to suggest ACS. Has scheduled appointment with recording studio setup worker, should follow up outpatient. # UTI Grew Klebsiella. Treated with Ceftriaxone. to continue Ceftin. # Microcytic anemia. showed low iron stores. to start iron supplement as outpatient. # Rash. has had diffuse rash for months now. Followed by dermatology who has biopsied them. Finished doxycycline therapy while inpatient., F/U outpatient with dermatology Continue antibiotics as prescribed Advance your diet over the next few days follow more Fiber diet Come back to ED for any worsening pain, fever or diarrhea Time Spent with Patient Time attestation: Total time managing care of this patient today ____ minutes. Discharge coordination time: Greater than 30 minutes Quality: Safe Use of Opioids Does Pt have an Active Cancer Diagnosis on the Problem List?: No Quality: Stroke Does the patient have a stroke diagnosis?: No Physical Exam Vital Signs: Vital Signs: Last Vital Signs Temp 97.2 F 11/29/22 08:00 Pulse 77 11/29/22 08:00 Resp 16 11/29/22 08:00 BP 137/63 11/29/22 08:00 Pulse Ox 98 11/29/22 08:00 O2 Del Method Room Air 11/29/22 08:00 BMI result Body Mass Index 32.3 Const: Other: Constitutional : Awake, interactive, not in distress Neck : Normal inspection, Supple Cardiovascular : RRR, no JVP, no lower extremity edema Respiratory : good bilateral air entry, no crackles, wheezes or rhonchi Gastrointestinal: soft, lax, Normal bowel sounds, Lower abdominal mild tenderness with palpation, no rebound Skin : Warm, Dry, multiple lesions on legs and arms with irregular shapen and central ulceration but no erythema or tenderness Neurological : Alert & oriented x3, No focal deficit DS: Data Data Completed and Pending Labs on day of discharge: Laboratory Results - last 24 hr 11/28/22 11/28/22 11/28/22 16:05 20:18 20:42 WBC RBC Hgb Hct MCV MCH MCHC RDW Plt Count MPV Absolute Nucleated RBC Nucleated RBC % (auto) Sodium Potassium Chloride Carbon Dioxide Anion Gap BUN Creatinine Estim Creat Clear Calc Estimated GFR POC Glucose 135 H 172 H Random Glucose Calcium C. difficile Tox B Gene NEGATIVE 11/29/22 11/29/22 11/29/22 05:48 05:48 07:47 WBC 11.6 H RBC 4.58 Hgb 9.0 L Hct 30.2 L MCV 65.9 L MCH 19.7 L MCHC 29.8 L RDW 21.5 H Plt Count 356 MPV 10.3 Absolute Nucleated RBC 0.000 Nucleated RBC % (auto) 0.0 Sodium 139 Potassium 3.9 Chloride 109 H Carbon Dioxide 20 L Anion Gap 14 BUN 20 H Creatinine 0.69 Estim Creat Clear Calc 68.6 Estimated GFR > 60 POC Glucose 66 Random Glucose 58 L* Calcium 8.8 C. difficile Tox B Gene 11/29/22 08:17 WBC RBC Hgb Hct MCV MCH MCHC RDW Plt Count MPV Absolute Nucleated RBC Nucleated RBC % (auto) Sodium Potassium Chloride Carbon Dioxide Anion Gap BUN Creatinine Estim Creat Clear Calc Estimated GFR POC Glucose 175 H Random Glucose Calcium C. difficile Tox B Gene Preliminary micro results at discharge 11/27/22 18:48 Blood Culture - Preliminary Blood - Venous No growth after 24 hours. 11/27/22 18:46 Blood Culture - Preliminary Blood - Venous No growth after [address] scan - abdomen: Radiologist's impression: ITS Impressions Abdomen/Pelvis CT 11/27/22 16:27 IMPRESSION: 1. Diffuse circumferential thickening involving the entirety of the ascending colon with adjacent pericolonic stranding. Findings are most suggestive of colitis, likely infectious or inflammatory. 2. Cholelithiasis. 3. 5 cm right renal cyst. 4. Single enlarged lymph node abutting the right common femoral vein which measures 2.5 cm in transverse dimension. This is a nonspecific finding. 5. Moderate L3 compression which is age indeterminate but new from May. Fleischner guidelines were followed. Discharge Plan Discharge Anticipated Discharge Date/Time: 11/29/22 11:14 Patient Disposition: Home, Self-Care Discharge Diagnosis: Urine infection Acute colitis Referrals: Moiz Nesbitt MD [Primary Care Provider] - 1 Week Discharge Medications: New cefuroxime axetil 500 mg tablet 500 mg PO BID Qty: 10 0RF metronidazole 500 mg tablet 500 mg PO Q8H Qty: 15 0RF ferrous sulfate 324 mg (65 mg iron) tablet,delayed release (DR/EC) 324 mg PO DAILY Qty: 90 0RF Continued atorvastatin 80 mg tablet 1 tab PO BEDTIME enalapril maleate 10 mg tablet 1 tab PO DAILY calcipotriene 0.005 % cream 1 appl topical BID PRN (Reason: Itching) Rx Instructions: alternating with triamcinolone metoprolol tartrate 50 mg tablet 1 tab PO BID omeprazole 20 mg capsule,delayed release(DR/EC) 1 cap PO DAILY insulin lispro [Humalog KwikPen Insulin] 100 unit/mL insulin pen 12 unit subcut TIDAC Jardiance 25 mg tablet 1 tab PO QAM aspirin 81 mg Tablet,Chewable 1 tab DAILY insulin degludec [Tresiba FlexTouch U-100] 100 unit/mL (3 mL) insulin pen 20 unit subcut BEDTIME Hold Instructions: Resume on 05/28/22. hold off until seen by her wood pile driver operator. nitroglycerin 0.3 mg tablet, sublingual 0.3 mg sublingual Q5M PRN (Reason: Chest Pain) triamcinolone acetonide 0.1 % cream 1 appl topical BID PRN (Reason: Rash) Rx Instructions: UP TO 2 WEEKS alternating with calciprotriene Eliquis 5 mg tablet 5 mg PO BID diphenhydramine HCl 25 mg Tablet 50 mg PO BEDTIME Discontinued doxycycline monohydrate 100 mg capsule 100 mg PO BID Discharge Orders: Discharge Order (Routine); Ordered 11/29/22 Ordered By: Josep Trinidad Diet: Advance to usual diet Activity on Discharge: As tolerated Stand Alone Forms: Patient Portal Discharge page Care Plan Goals: Read below Health Concerns: Read below Plan of Treatment: Read below Assessment: You were admitted for evaluation of abdominal pain. CT scan showed an evidence of colon infection. urine test showed an infection w bacteria called Klebsiella. Improved significantly with antibiotics and advancing diet gradually with resolution of pain. Continue antibiotics as prescribed Advance your diet over the next few days follow more Fiber diet Come back to ED for any worsening pain, fever or diarrhea
[2022-11-29 12:00] VITALS: BP 122/58; PULSE 72; RESP 18; TEMP 36.5; O2SAT 98
[2022-11-29 12:08] LABS: Glucose Random 58 mg/dL (60-115)
[2022-11-29 12:16] LABS: Glucose, Whole Blood 200 mg/dL (60-115)
--- NOTE | 2022-11-29 12:50 | MHC.CM.PN ---
PT WILL DC HOME TODAY WITH NO SERVICES VIA FAMILY TRANSPORT
== END 2022-11-29 13:04 | disposition home or self-care (01) | DRG 384 ==
LOC: HO.ED 21:01 → HO.EDOVER 21:04 → HO.S3 11-28 05:10
PROVIDERS: Internal Medicine; Physician Assistant Medical; Admitting Provider Student in an Organized Health Care Education/Training Program; Emergency Provider Internal Medicine; PCP Internal Medicine; Visit Provider Student in an Organized Health Care Education/Training Program
DX: K25.9 Gastric ulcer, unspecified as acute or chronic, without hemorrhage or perforation (principal); N39.0 Urinary tract infection, site not specified; E11.9 Type 2 diabetes mellitus without complications; D50.9 Iron deficiency anemia, unspecified; I25.10 Atherosclerotic heart disease of native coronary artery without angina pectoris; Z95.1 Presence of aortocoronary bypass graft; B96.1 Klebsiella pneumoniae [K. pneumoniae] as the cause of diseases classified elsewhere; R21 Rash and other nonspecific skin eruption; E78.5 Hyperlipidemia, unspecified; Z87.891 Personal history of nicotine dependence; Z91.041 Radiographic dye allergy status; Z79.4 Long term (current) use of insulin; Z79.01 Long term (current) use of anticoagulants; Z79.899 Other long term (current) drug therapy
CPT/HCPCS: 36415; 74176; 80048; 80076; 81001; 82947; 83540; 83605; 83690; 84484; 85025; 85027; 87040; 87086; 87088; 87186; 87493; 93005; 99285; J0696; J2405

== ENCOUNTER 2022-11-27 20:59 | Outpatient (BNV) | payer OTHER, SELFPAY | END 2022-11-27 21:05 | PROVIDERS: Admitting Provider Student in an Organized Health Care Education/Training Program; Emergency Provider Internal Medicine; PCP Internal Medicine; Visit Provider Internal Medicine Cardiovascular Disease | DX: R07.89 Other chest pain (principal) | CPT/HCPCS: 93010 ==

== ENCOUNTER → 2022-11-27 20:59 | Outpatient (BNV) | payer OTHER, SELFPAY | PROVIDERS: Admitting Provider Student in an Organized Health Care Education/Training Program; Emergency Provider Internal Medicine; PCP Internal Medicine; Visit Provider Student in an Organized Health Care Education/Training Program | DX: K52.9 Noninfective gastroenteritis and colitis, unspecified (principal) | CPT/HCPCS: 99223; 99232; 99239 ==

== ENCOUNTER 2023-03-26 20:09 | Emergency (ER) | payer OTHER, SELFPAY ==
--- NOTE | 2023-03-26 | ECG_ITS ---
Test Reason : C/HX Blood Pressure : / mmHG Vent. Rate : 094 BPM Atrial Rate : 094 BPM P-R Int : 172 ms QRS Dur : 084 ms QT Int : 356 ms P-R-T Axes : 039 006 108 degrees QTc Int : 445 ms Normal sinus rhythm ST & T wave abnormality, consider lateral ischemia Abnormal ECG When compared with ECG of 27-NOV-2022 21:05, T wave inversion now evident in Lateral leads Referred By: Generic ED Physician Electronically Signed By:MALACHI BALDWIN MD
[2023-03-26 20:20] VITALS: BP 136/72; PULSE 100; BMI 25.2
[2023-03-26 20:23] VITALS: BP 130/74; PULSE 105; RESP 16; TEMP 37.6; O2SAT 98
--- NOTE | 2023-03-26 20:31 | PC.NURSE ---
a&ox3, vss and up to date aside from low grade temp at this time. 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 pt biba d/t not being able to unclog PICC line in LUE. pt has oxacillin due at 1800 but was unable to administer. pt's daughter and visiting home nurses attempted to unclog w/o success. pt denies fever/chills and states that most recent temp is new. pt c/o right foot pain d/t clot that was passed during cardiac cath via right femoral. pt has no other complaints. tech bedside obtaining ekg at this time. respirations even and unlabored. call ruth placed within reach.
--- NOTE | 2023-03-26 20:53 | PC.NURSE ---
tech bedside obtaining labs at this time.
[2023-03-26 21:00] LABS: MANUAL DIFF FLAG NO
[2023-03-26 21:01] LABS: Basophils Absolute Auto 0.1 X10*3/uL (0.0-0.2); Basophils Percent Auto 0.9 % (0-2); Eosinophils Absolute Auto 0.2 X10*3/uL (0.0-0.4); Hematocrit 26.8 % (37.0-47.0); Hemoglobin 8.3 g/dl (12.0-16.0); Imm Gran Abs Auto 0.11 X10*3/uL (0.00-0.03); Imm Gran Pct Auto 1.2 % (0.0-0.4); Lymphocytes Absolute Auto 1.3 X10*3/uL (1.2-4.9); Lymphocytes Percent Auto 14.4 % (20-40); Mean Corpuscular Hemoglobin 23.3 pg (27.0-33.0); Mean Corpuscular Volume 75.3 fL (80.0-98.0); Mean Platelet Volume 8.7 fL (9.4-12.3); Monocytes Percent Auto 10.9 % (2-11); NRBC Pct Auto 0.2 /100WBC (0.0-0.2); Neutrophils Absolute Auto 6.4 x10*3/uL (2.0-8.3); Neutrophils Percent Auto 70.6 % (45-73); Platelet Count 485 X10*3/uL (160-400); Red Blood Count 3.56 X10*6/uL (4.20-5.50); Red Cell Distribution Width 19.9 % (11.0-16.0); White Blood Count 9.1 X10*3/uL (4.8-10.8)
[2023-03-26 21:22] LABS: Anion Gap 12 (12-20); Blood Urea Nitrogen 26 mg/dL (9-16); Calcium 8.1 mg/dL (8.4-10.2); Carbon Dioxide 25 mmol/L (22-29); Chloride 110 mmol/L (96-108); Estimated Glomerular Filt Rate > 60; Glucose Random 137 mg/dL (60-115); Potassium 4.9 mmol/L (3.3-5.1); Sodium 142 mmol/L (135-145)
[2023-03-26 21:30] LABS: Troponin-I High Sensitivity 33.6 ng/L (<3.5-17.0)
--- NOTE | 2023-03-26 21:37 | ED_ITS ---
HPI - General Adult General Chief complaint: General Medical Stated complaint: CLOGGED PICC LINE, OVERDUE FOR EVENING ABX Time Seen by Provider: 03/26/23 21:37 Source: patient Mode of arrival: ambulatory Limitations: no limitations History of Present Illness HPI narrative: Patient With PICC line the left arm 1 week ago for IV antibiotic treatment for staph infection unable to flush it today by the visiting nurse and the family member Related Data Home Medications Medication Instructions Recorded Confirmed aspirin 81 mg chewable tablet 1 tab DAILY 05/13/22 11/27/22 atorvastatin 80 mg tablet 1 tab PO BEDTIME 05/13/22 11/27/22 calcipotriene 0.005 % topical cream 1 appl topical BID PRN Itching 05/13/22 11/27/22 empagliflozin 25 mg tablet 1 tab PO QAM 05/13/22 11/27/22 (Jardiance) enalapril maleate 10 mg tablet 1 tab PO DAILY 05/13/22 11/27/22 insulin degludec 100 unit/mL (3 20 unit subcut BEDTIME 05/13/22 11/27/22 mL) subcutaneous pen (Tresiba FlexTouch U-100 insulin) insulin lispro 100 unit/mL 12 unit subcut TIDAC 05/13/22 11/27/22 subcutaneous pen (Humalog KwikPen (U-100) Insulin) metoprolol tartrate 50 mg tablet 1 tab PO BID 05/13/22 11/27/22 omeprazole 20 mg capsule,delayed 1 cap PO DAILY 05/13/22 11/27/22 release apixaban 5 mg tablet (Eliquis) 5 mg PO BID 11/27/22 11/27/22 diphenhydramine HCl 25 mg tablet 50 mg PO BEDTIME 11/27/22 11/27/22 nitroglycerin 0.3 mg sublingual 0.3 mg sublingual Q5M PRN Chest 11/27/22 11/27/22 tablet Pain triamcinolone acetonide 0.1 % 1 appl topical BID PRN Rash 11/27/22 11/27/22 topical cream Previous Rx's Medication Instructions Recorded cefuroxime axetil 500 mg tablet 500 mg PO BID #10 tabs 11/29/22 ferrous sulfate 324 mg (65 mg 324 mg PO DAILY #90 tabs 11/29/22 iron) tablet,delayed release metronidazole 500 mg tablet 500 mg PO Q8H #15 tabs 11/29/22 Allergies Allergy/AdvReac Type Severity Reaction Status Date / Time Iodinated Contrast Media Allergy Unknown UNKNOWN Verified 03/26/23 20:20 [CONTRAST, IV] Review of Systems 2 Review of Systems: Yes all other systems are reviewed and are negative [facility] Past Medical History Medical History Morbid (severe) obesity due to excess calories Umbilical hernia Diabetes Hyperlipidemia Hypertension Surgical History History of prolapse of bladder Hx of hysterectomy, total S/P triple vessel bypass (~2001) Social History Household Members: Spouse and Children Housing: House Do you presently have visiting nurse or other home services: No Alcohol intake: former Patient Tobacco Use Status: Former Tobacco user Smoked in Last 30 Days: No Use of substances other than those prescribed or required for medical reasons: No Advance Directives: No Advance Directives Information Provided: Yes service: No Physical Exam ED Vital Signs: Vital Signs - 24 hr 03/26/23 20:23 03/26/23 22:00 Temperature 99.7 F 99.3 F Pulse Rate 105 H 95 Respiratory Rate 16 18 Blood Pressure 130/74 149/68 H Pulse Oximetry 98 98 Oxygen Delivery Method Room Air Room Air BMI result Body Mass Index 25.2 Appearance: Alert. Oriented X3. No acute distress. CVS: Normal heart rate and rhythm. Pulses normal. Respiratory: No respiratory distress. Equal air entry bilateral, Abdomen: Soft and nontender. Bowel sounds are present, Skin: Skin warm and dry. Normal skin color. Normal skin turgor. Extremities: No lower extremity edema. No calf tenderness PICC line in place left arm Neuro: Oriented X 3. No motor deficit. Medications Administered Generic Name Dose Route Start Last Admin Trade Name Freq PRN Reason Stop Dose Admin Heparin Sodium (Porcine) 50 0 units 03/27/23 00:00 03/27/23 00:07 units/ Sodium Chloride 5 ml IVFLUSH 50 unit QSHIFT MAXIM Administration Discontinued Medications Generic Name Dose Route Start Last Admin Trade Name Freq PRN Reason Stop Dose Admin Alteplase, Recombinant 2 mg 03/26/23 21:53 03/26/23 22:15 Alteplase Cath Clear 2 Mg/2 Ml Vial INTRACATH 03/26/23 21:54 2 mg ONCE ONE Administration Medical Decision Making Medical Decision Making [facility] Narrative: Left PICC line opened up after using TNK flushed easily was given her p.m. antibiotic, line flushed with heparin and will discharge the patient home Lab Data [facility] Lab Attestation statement: I reviewed the patient's lab results. 03/26/23 20:55 03/26/23 20:55 Labs: Lab Results 03/26/23 Range/Units 20:55 WBC 9.1 (4.8-10.8) X10*3/uL RBC 3.56 L D (4.20-5.50) X10*6/uL Hgb 8.3 L (12.0-16.0) g/dl Hct 26.8 L (37.0-47.0) % MCV 75.3 L (80.0-98.0) fL MCH 23.3 L (27.0-33.0) pg MCHC 31.0 (31.0-35.0) g/dl RDW 19.9 H (11.0-16.0) % Plt Count 485 H D (160-400) X10*3/uL MPV 8.7 L (9.4-12.3) fL Immature Gran % (Auto) 1.2 H (0.0-0.4) % Neut % (Auto) 70.6 (45-73) % Lymph % (Auto) 14.4 L (20-40) % Miller % (Auto) 10.9 (2-11) % Eos % (Auto) 2.0 (0-4) % Baso % (Auto) 0.9 (0-2) % Lymph # (Auto) 1.3 (1.2-4.9) X10*3/uL Miller # (Auto) 1.0 (0.1-1.2) X10*3/uL Eos # (Auto) 0.2 (0.0-0.4) X10*3/uL Baso # (Auto) 0.1 (0.0-0.2) X10*3/uL Abs Immat Gran (auto) 0.11 H (0.00-0.03) X10*3/uL Absolute Neuts (auto) 6.4 (2.0-8.3) x10*3/uL Absolute Nucleated RBC 0.020 H (0.0-0.012) X10*3/uL Nucleated RBC % (auto) 0.2 (0.0-0.2) /100WBC Sodium 142 (135-145) mmol/L Potassium 4.9 D (3.3-5.1) mmol/L Chloride 110 H (96-108) mmol/L Carbon Dioxide 25 (22-29) mmol/L Anion Gap 12 (12-20) BUN 26 H (9-16) mg/dL Creatinine 0.92 (0.5-1.4) mg/dL Estim Creat Clear Calc 62.0 Estimated GFR > 60 Random Glucose 137 H (60-115) mg/dL Calcium 8.1 L D (8.4-10.2) mg/dL Troponin I High Sens 33.6 H D (<3.5-17.0) ng/L Discharge Plan Discharge Clinical Impression: Occluded PICC line Patient Disposition: Home, Self-Care Instructions: How to Flush Your PICC (Peripherally Inserted Central Catheter) (ED) Additional Instructions: Care of your PICC line as advised Continue takeyour antibiotics as prescribed Prescriptions: No Action atorvastatin 80 mg tablet 1 tab PO BEDTIME enalapril maleate 10 mg tablet 1 tab PO DAILY calcipotriene 0.005 % cream 1 appl topical BID PRN (Reason: Itching) Rx Instructions: alternating with triamcinolone metoprolol tartrate 50 mg tablet 1 tab PO BID omeprazole 20 mg capsule,delayed release(DR/EC) 1 cap PO DAILY insulin lispro [Humalog KwikPen Insulin] 100 unit/mL insulin pen 12 unit subcut TIDAC Jardiance 25 mg tablet 1 tab PO QAM aspirin 81 mg Tablet,Chewable 1 tab DAILY insulin degludec [Tresiba FlexTouch U-100] 100 unit/mL (3 mL) insulin pen 20 unit subcut BEDTIME Hold Instructions: Resume on 05/28/22. 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 nitroglycerin 0.3 mg tablet, sublingual 0.3 mg sublingual Q5M PRN (Reason: Chest Pain) triamcinolone acetonide 0.1 % cream 1 appl topical BID PRN (Reason: Rash) Rx Instructions: UP TO 2 WEEKS alternating with calciprotriene Eliquis 5 mg tablet 5 mg PO BID diphenhydramine HCl 25 mg Tablet 50 mg PO BEDTIME cefuroxime axetil 500 mg tablet 500 mg PO BID Qty: 10 0RF metronidazole 500 mg tablet 500 mg PO Q8H Qty: 15 0RF ferrous sulfate 324 mg (65 mg iron) tablet,delayed release (DR/EC) 324 mg PO DAILY Qty: 90 0RF
[2023-03-26 22:00] VITALS: BP 149/68; PULSE 95; RESP 18; TEMP 37.4; O2SAT 98
--- NOTE | 2023-03-26 22:07 | PC.NURSE ---
Dr. Espinoza attempted to flush PICC line - no success. medication will be administered per provider order.
[2023-03-26] MEDS: Alteplase Cath Clear 2 MG/2 ML VIAL INTRACATH (22:15)
--- NOTE | 2023-03-26 22:20 | PC.NURSE ---
medication received from [facility] - administered per provider order. per [employer] - medication will sit within PICC line for 30 minutes - NS flush will be reattempted after 30min.
--- NOTE | 2023-03-26 23:03 | PC.NURSE ---
PICC line patent post medication administration. pt's line flushes w/o difficulty. per provider order - pt is able to have her own oxacillin administered that was prescribed by [facility]. medication administering per provider order.
--- NOTE | 2023-03-26 23:49 | PC.NURSE ---
awaiting for abx to be completely administered so PICC line can be flushed w/ heparin and then pt is able to be d/c'd.
[2023-03-27] MEDS: Heparin Sodium,Porcine Flush 50 UNITS, 0.9 % Sodium Chloride Flush 5 ML IVFLUSH (00:07)
--- NOTE | 2023-03-27 00:16 | PC.NURSE ---
abx completed - PICC line flushed w/ heparin w/o difficulty. pt waiting d/c paperwork.
== END 2023-03-27 00:20 | disposition home or self-care (01) ==
PROVIDERS: Emergency Provider Internal Medicine; PCP Internal Medicine
DX: T82.594A Other mechanical complication of infusion catheter, initial encounter (principal); Y82.8 Other medical devices associated with adverse incidents; Y92.9 Unspecified place or not applicable; E11.9 Type 2 diabetes mellitus without complications; Z95.1 Presence of aortocoronary bypass graft; Z79.4 Long term (current) use of insulin; Z79.82 Long term (current) use of aspirin
CPT/HCPCS: 36415; 80048; 84484; 85025; 93005; 99284; 99285; J1642; J2997